=== PATIENT | female | born 1960 | race Caucasian/White ===

== ENCOUNTER 2017-03-17 15:34 | Emergency (ER) | payer MEDICARE, SELFPAY | END 2017-03-17 17:28 | disposition home or self-care (01) | PROVIDERS: Emergency Provider Nurse Practitioner Family; Family Provider Internal Medicine Adolescent Medicine; Visit Provider Nurse Practitioner Family | DX: J10.1 Influenza due to other identified influenza virus with other respiratory manifestations (principal); Z79.82 Long term (current) use of aspirin; I10 Essential (primary) hypertension; K21.9 Gastro-esophageal reflux disease without esophagitis; F41.8 Other specified anxiety disorders; F17.210 Nicotine dependence, cigarettes, uncomplicated | CPT/HCPCS: G0463; 87804; 99201 ==

== ENCOUNTER 2017-04-02 07:43 | Day surgery (SDC) | payer MEDICARE, MEDICAID, SELFPAY ==
[2017-03-24 17:54] VITALS: BMI 35.2
[2017-04-02] VITALS (8 sets, daily range): BP systolic 97–123; BP diastolic 45–64; PULSE 65–75; RESP 18–20; TEMP 36.2–36.8; O2SAT 92–98
--- NOTE | 2017-04-02 09:30 | SUR.OPER ---
Addendum entered by Gerardo Jiang RN 04/06/17 08:48: Original Note: pt remains awake after recieving 11mg versed & 200mcg fentanyl. sandi carrillo consulted per dr boyer request & to assume sedation responsibilities
--- NOTE | 2017-04-02 09:31 | SUR.OPER ---
Cory Kunz FIGHTING VEH[employer]LE [employer]S MAINTAINER enters room to sedate patient after IV Sedation failure to sedate.
--- NOTE | 2017-04-02 09:42 | HMH.PROC ---
[facility] Procedure Note Procedure Note:: Colonoscopy Procedure Report: Colonoscopy with cold snare polypectomy Endoscopist: Anthony Stokes II, MD Referring physician: Sebas Campbell M.D. Date of Procedure: April 02, 2017 Equipment: Olympus 180 variable stiffness pediatric colonoscope Sedation: Fentanyl 200 mg IV/ Versed 11 mg IV (failed to sedate) and then MAC sedation Indication: Mrs. Castro is a 56-year-old female who is here for diagnostic colonoscopy. She does have left upper quadrant abdominal pain for 8-9 months with bloating and some gassiness. She has irregular bowel function with constipation alternating with diarrhea. She does have some occasional spotting of blood secondary to internal hemorrhoids. The patient reports no weight loss or family history of colon cancer. The patient had a colonoscopy in January [address] Benedict Vega M.D. which revealed 4 small polyps (hyperplastic polyps) which were removed. Procedure: Prior to the procedure, a history and physical exam was performed, and patient's medications and allergies were reviewed. The risks, benefits and alternatives of the sedation and procedure were discussed with the patient. All questions were answered and informed consent was obtained. The patient was brought to the procedure room. Patient identification and proposed procedure were verified by the physician and the nurse. The patient was placed in a left lateral decubitus position and the scope was passed under direct vision. Throughout the procedure, the patient's blood pressure, pulse, and oxygen saturations were monitored continuously. The colonoscopy was accomplished without difficulty. The patient tolerated the procedure well. Findings: On digital rectal examination there was normal rectal tone. There were no external hemorrhoids. The colonoscope was introduced through the anal canal to the rectum and advanced to the cecum. The ileocecal valve and appendiceal orifice were identified. The scope was advanced a short distance into the ileum which appeared grossly normal. The scope was then withdrawn into the colon. The cecum, ascending and transverse colon and mucosa were grossly normal. There were scattered diverticuli throughout the descending and sigmoid colon (LEFT colon). There was a single 4-5 mm polyp in the rectum removed via cold snare polypectomy. Upon retroflexion within the rectum there were grade 1 internal hemorrhoids. Impression: 1. Diminutive rectal polyp 2. Left-sided diverticulosis 3. Grade 1 internal hemorrhoids Plan: I will follow up the polyp pathology and recommend repeat colonoscopy again in 5-10 years based upon the polyp histology. I would encourage dietary measures, fiber bowel regimen and probiotic therapy on a long-term daily maintenance basis. 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 We will discuss additional treatment options.
--- NOTE | 2017-04-02 09:46 | P.PCN_ITS ---
[facility] Procedure Note Procedure Note:: Colonoscopy Procedure Report: Colonoscopy with cold snare polypectomy Endoscopist: Anthony Stokes II, MD Referring physician: Sebas Campbell M.D. Date of Procedure: April 02, 2017 Equipment: Olympus 180 variable stiffness pediatric colonoscope Sedation: Fentanyl 200 mg IV/ Versed 11 mg IV (failed to sedate) and then MAC sedation Indication: Mrs. Castro is a 56-year-old female who is here for diagnostic colonoscopy. She does have left upper quadrant abdominal pain for 8-9 months with bloating and some gassiness. She has irregular bowel function with constipation alternating with diarrhea. She does have some occasional spotting of blood secondary to internal hemorrhoids. The patient reports no weight loss or family history of colon cancer. The patient had a colonoscopy in January [address] Benedict Vega M.D. which revealed 4 small polyps (hyperplastic polyps) which were removed. Procedure: Prior to the procedure, a history and physical exam was performed, and patient' s medications and allergies were reviewed. The risks, benefits and alternatives of the sedation and procedure were discussed with the patient. All questions were answered and informed consent was obtained. The patient was brought to the procedure room. Patient identification and proposed procedure were verified by the physician and the nurse. The patient was placed in a left lateral decubitus position and the scope was passed under direct vision. Throughout the procedure, the patient's blood pressure, pulse, and oxygen saturations were monitored continuously. The colonoscopy was accomplished without difficulty. The patient tolerated the procedure well. Findings: On digital rectal examination there was normal rectal tone. There were no external hemorrhoids. The colonoscope was introduced through the anal canal to the rectum and advanced to the cecum. The ileocecal valve and appendiceal orifice were identified. The scope was advanced a short distance into the ileum which appeared grossly normal. The scope was then withdrawn into the colon. The cecum, ascending and transverse colon and mucosa were grossly normal. There were scattered diverticuli throughout the descending and sigmoid colon (LEFT colon). There was a single 4-5 mm polyp in the rectum removed via cold snare polypectomy. Upon retroflexion within the rectum there were grade 1 internal hemorrhoids. Impression: 1. Diminutive rectal polyp 2. Left-sided diverticulosis 3. Grade 1 internal hemorrhoids Plan: I will follow up the polyp pathology and recommend repeat colonoscopy again in 5 -10 years based upon the polyp histology. I would encourage dietary measures, fiber bowel regimen and probiotic therapy on a long-term daily maintenance basis. 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 We will discuss additional treatment options.
--- NOTE | 2017-04-02 11:42 | SUR.PHASEII ---
FU APPT MADE WITH LEENA FOR 12 WEEKS- JUN 20 AT 8:30AM
== END 2017-04-02 11:00 | disposition home or self-care (01) ==
LOC: OUTP 07:46
PROVIDERS: Family Provider Internal Medicine Adolescent Medicine; PCP Internal Medicine Adolescent Medicine; Visit Provider Internal Medicine Gastroenterology
PROC: 0DJD8ZZ Inspection of Lower Intestinal Tract, Via Natural or Artificial Opening Endoscopic (ICD-10-PCS; CPT 45378; principal; 2017-04-02 09:00)
DX: K62.1 Rectal polyp (principal); K64.0 First degree hemorrhoids; Z86.010 Personal history of colon polyps
CPT/HCPCS: 45380; 88305

== ENCOUNTER → 2017-05-06 09:27 | Outpatient (CLI) | payer MEDICARE, MEDICAID, SELFPAY ==
[2017-05-06 11:07] LABS: Basophils # 0.1 K/mm3 (0-0.2); Basophils % 1.3 % (0.1-2.0); Eosinophils # 0.3 K/mm3 (0.0-0.4); Eosinophils % 4.2 % (0.1-12.0); Hematocrit 35.3 % (37.0-47.0); Hemoglobin 11.2 g/dL (12.2-16.2); Lymphocytes # 2.1 K/mm3 (0.7-4.5); Lymphocytes % 35.2 K/mm3 (10-50); Mean Corpuscular HGB Conc 31.8 g/dL (31.8-35.4); Mean Corpuscular Hemoglobin 27.6 pg (27.0-31.2); Mean Corpuscular Volume 86.8 fl (81-99); Mean Platelet Volume 8.6 fl (7.4-10.4); Monocytes # 0.3 K/mm3 (0.1-1.0); Neutrophils # 3.2 K/mm3 (1.8-7.8); Neutrophils % 54.3 % (37.0-80.0); Platelet Count 320 K/mm3 (142-424); Red Blood Count 4.07 M/mm3 (4.20-5.40); Red Cell Distribution Width 13.6 % (11.5-17.5); White Blood Count 5.8 K/mm3 (4.8-10.8)
[2017-05-06 12:10] LABS: Chol/HDL Ratio 2.7 (1-3.5); Cholesterol 159 mg/dL (140-200); HDL Cholesterol 60 mg/dL (29-89); LDL Cholesterol 77 mg/dL (0-130); Thyroid Stimulating Hormone 0.96 uIU/ml (0.358-3.740); Triglycerides 112 mg/dL (30-200); VLDL Cholesterol 22 mg/dL (0-40)
[2017-05-07 12:15] LABS: Vitamin B12 633 pg/mL (232-1245); Vitamin D 25 Hydroxy 27.7 ng/mL (30.0-100.0)
== END ==
PROVIDERS: PCP Internal Medicine Adolescent Medicine; Visit Provider Nurse Practitioner Family
DX: E53.8 Deficiency of other specified B group vitamins (principal); R53.83 Other fatigue; Z00.00 Encounter for general adult medical examination without abnormal findings
CPT/HCPCS: 36415; 80061; 82607; 82652; 84443; 85025

== ENCOUNTER → 2017-06-21 08:30 | Outpatient (POV) | payer MEDICARE, MEDICAID, SELFPAY | PROVIDERS: Family Provider Internal Medicine Adolescent Medicine; PCP Internal Medicine Adolescent Medicine; Visit Provider Nurse Practitioner Acute Care | DX: Z00.00 Encounter for general adult medical examination without abnormal findings (principal) ==

== ENCOUNTER → 2017-08-03 07:44 | Outpatient (CLI) | payer MEDICARE, MEDICAID, SELFPAY ==
--- NOTE | 2017-08-03 07:46 | MR_ITS ---
MR lumbar spine wo con, MR 3-d myelogram/MRCP HISTORY: Left sciatic pain, left buttock pain. Numbness and pain left leg. Left back pain low back pain with LT buttox pain. Numbness in LT leg on lateral side and in 3rd-5th toes in LT foot.. ITS.REASON: LEFT SCIATIC NERVE PAIN ORDERING PHYSICIAN: Soraida Coughlin PATIENT AGE: 56 years TECHNIQUE: Standard multiplanar multiecho sequences are performed without contrast. 3-D MIP and myelographic images are also rendered and reviewed FINDINGS: The spinal cord ends at the L1 level. T11-T12: Minimal left foraminal disc protrusion with mild left foraminal narrowing. T12-L1: Minimal bulging disc. L1-L2: Minimal right paracentral disc protrusion with mild right lateral recess narrowing abutting the right L2 nerve root L2-L3: Unremarkable. L3-L4: Unremarkable. L4-L5: There is mild anterolisthesis of L4 on L5 of 3 mm with minimal bulging disc along with facet and ligamentum flavum hypertrophy with mild to moderate bilateral foraminal narrowing. L5-S1: Prominent facet hypertrophic changes bilaterally with bilateral impingement upon the lateral aspect of the thecal sac. The somewhat more prominent on the right impingement upon the right S1 nerve root. Left lateral recess narrowing also present. No extruded herniated disc. IMPRESSION: 1. Small right paracentral disc protrusion with lateral recess narrowing at L1-L2. 2. Mild left foraminal disc protrusion at T11-T12 with mild left foraminal narrowing 3. There is mild anterolisthesis of L4 on L5 of 3 mm with minimal bulging disc along with facet and ligamentum flavum hypertrophy with mild to moderate bilateral foraminal narrowing. 4. Prominent facet hypertrophic changes bilaterally at L5-S1 with bilateral impingement upon the lateral aspect of the thecal sac. The somewhat more prominent on the right impingement upon the right S1 nerve root. Left lateral recess narrowing also present.
== END ==
PROVIDERS: Family Provider Internal Medicine Adolescent Medicine; PCP Internal Medicine Adolescent Medicine; Visit Provider Nurse Practitioner Family
DX: M54.32 Sciatica, left side (principal)
CPT/HCPCS: 72148; 76376

== ENCOUNTER → 2017-08-23 14:50 | Outpatient (POV) | payer MEDICARE, MEDICAID, SELFPAY ==
[2017-08-23 15:07] VITALS: BP 140/87; PULSE 66; RESP 18; O2SAT 98
--- NOTE | 2017-08-23 16:11 | HMH.PMCON ---
Assessment and Plan (1) Degenerative disc disease Current visit: Yes Status: Chronic Category: Medical (2) Lumbar radiculopathy Current visit: Yes Status: Chronic Category: Medical Code(s): M54.16 - Radiculopathy, lumbar region (3) Facet hypertrophy Current visit: Yes Status: Chronic Category: Medical Code(s): M47.9 - Spondylosis, unspecified (4) Lumbar nerve root impingement Current visit: Yes Status: Chronic Category: Medical Code(s): M54.16 - Radiculopathy, lumbar region - Assessment and plan all Dx Assessment and Plan for all problems:: We will plan to send this patient to Dr. Zamora for neurosurgical consultation. Patient has a recent MRI. We will also schedule the patient for an L5-S1 lumbar epidural steroid injection today believing given her symptomology that this would be beneficial. Patient's tried and failed medications, anti-inflammatories, physical therapy, chiropractic therapy, massage therapy. Patient has not tried injections before. I will follow-up with this patient after her neurosurgical consultation or her injective ever comes first. Patient is not on any anticoagulation therapy. This note was dictated using voice recognition software and may contain errors or omissions HPI - Data of Consult Consult date: 08/23/17 Requesting Physician: Shani Hebert APRN Primary Care Provider: Sebas Campbell MD Family Provider: Sebas Campbell MD - Consult Narrative Reason for consult: Back pain, leg pain History of present illness: Ms. Castro is a 56 year old female who presents today for consultation in regards to her low back and left-sided pain. Patient is also having some right sided pain. Patient has numbness in her left foot and toes. Patient has a recent MRI showing nerve impingement at L5-S1. Patient has not been seen by a neurosurgeon. Patient rates her pain a 7 out of 10 today. Patient states she has tried and failed chiropractic therapy along with physical therapy. Patient also tried massage therapy. Patient is currently on Lortab and Valium and she states this does not help much. Patient does have weakness in her legs at times she also states that they feel heavy. Patient states that lots of walking increases her pain while stretching decreases her pain. CC: Shani Hebert APRN [facility] History I have reviewed the patient's past medical history: Yes Medical History: Reports:: Hyperlipidemia Denies:: Diabetes Mellitus Type 1, Diabetes Mellitus Type 2, Internal Pacemaker, Lung Disease, Seizures Other Medical History: Denies: Blood Transfusion Reaction Other Surgeries: Yes: Cardiac Catheterization, Hysterectomy-Total, Other (gall bladder,neck surgery,cyst removed from head). No: Pacemaker - *Social History Educational Level: Attended High School Smoking Status: Never smoker Alcohol Intake: never Occupational Status: other Housing: house - Psychiatric History Expresses thoughts of harming self/others: None Suicide Plan Description: No Plan *Family Hx:: No significant family history Review of Systems - Review of Systems ROS General: no recent weight change, no fever, no sleep disturbances Respiratory: no cough, no shortness of air, no recurring pulmonary infections Cardiovascular/Peripheral Vascular: No chest pain, No palpitations, no edema, no shortness of breath. Gastrointestinal: no incontinence, normal bowel movements reported Genitourinary: no incontinence Musculoskeletal: Pain, left leg pain Psychiatric: normal mood/ affect Neurological: Weakness in bilateral lower extremities, [denies balance issues] Meds Home Medications Medication Instructions Recorded Confirmed Type Aspirin [Aspirin 81mg chewable 81 mg PO DAILY 03/24/17 08/22/17 History tab] Atorvastatin Calcium [Atorvastatin 10 mg PO DAILY 03/24/17 08/22/17 History 10mg Tab] Azelastine HCl [Azelastine Nasal 0 mcg NS BID 03/24/17 08/22/17 History
--- NOTE | 2017-08-23 16:14 | P.CONS_ITS ---
Assessment and Plan (1) Degenerative disc disease Current visit: Yes Status: Chronic Category: Medical (2) Lumbar radiculopathy Current visit: Yes Status: Chronic Category: Medical Code(s): M54.16 - Radiculopathy, lumbar region (3) Facet hypertrophy Current visit: Yes Status: Chronic Category: Medical Code(s): M47.9 - Spondylosis, unspecified (4) Lumbar nerve root impingement Current visit: Yes Status: Chronic Category: Medical Code(s): M54.16 - Radiculopathy, lumbar region - Assessment and plan all Dx Assessment and Plan for all problems:: We will plan to send this patient to Dr. Zamora for neurosurgical consultation. Patient has a recent MRI. We will also schedule the patient for an L5-S1 lumbar epidural steroid injection today believing given her symptomology that this would be beneficial. Patient's tried and failed medications, anti- inflammatories, physical therapy, chiropractic therapy, massage therapy. Patient has not tried injections before. I will follow-up with this patient after her neurosurgical consultation or her injective ever comes first. Patient is not on any anticoagulation therapy. This note was dictated using voice recognition software and may contain errors or omissions HPI - Data of Consult Consult date: 08/23/17 Requesting Physician: Shani Hebert APRN Primary Care Provider: Sebas Campbell MD Family Provider: Sebas Campbell MD - Consult Narrative Reason for consult: Back pain, leg pain History of present illness: Ms. Castro is a 56 year old female who presents today for consultation in regards to her low back and left-sided pain. Patient is also having some right sided pain. Patient has numbness in her left foot and toes. Patient has a recent MRI showing nerve impingement at L5-S1. Patient has not been seen by a neurosurgeon. Patient rates her pain a 7 out of 10 today. Patient states she has tried and failed chiropractic therapy along with physical therapy. Patient also tried massage therapy. Patient is currently on Lortab and Valium and she states this does not help much. Patient does have weakness in her legs at times she also states that they feel heavy. Patient states that lots of walking increases her pain while stretching decreases her pain. CC: Shani Hebert APRN [facility] History I have reviewed the patient's past medical history: Yes Medical History: Reports:: Hyperlipidemia Denies:: Diabetes Mellitus Type 1, Diabetes Mellitus Type 2, Internal Pacemaker, Lung Disease, Seizures Other Medical History: Denies: Blood Transfusion Reaction Other Surgeries: Yes: Cardiac Catheterization, Hysterectomy-Total, Other (gall bladder,neck surgery,cyst removed from head). No: Pacemaker - *Social History Educational Level: Attended High School Smoking Status: Never smoker Alcohol Intake: never Occupational Status: other Housing: house - Psychiatric History Expresses thoughts of harming self/others: None Suicide Plan Description: No Plan *Family Hx:: No significant family history Review of Systems - Review of Systems ROS General: no recent weight change, no fever, no sleep disturbances Respiratory: no cough, no shortness of air, no recurring pulmonary infections Cardiovascular/Peripheral Vascular: No chest pain, No palpitations, no edema, no shortness of breath. Gastrointestinal: no incontinence, normal bowel movements reported Genitourinary: no incontinence Musculoskeletal: Pain, left leg pain Psychiatric: normal mood/ affect Neurol
== END ==
PROVIDERS: Family Provider Internal Medicine Adolescent Medicine; PCP Internal Medicine Adolescent Medicine; Visit Provider Clinical Nurse Specialist Family Health
DX: M54.16 Radiculopathy, lumbar region (principal); M47.9 Spondylosis, unspecified
CPT/HCPCS: 99202

== ENCOUNTER → 2017-09-28 09:02 | Outpatient (POV) | payer MEDICARE, SELFPAY ==
[2017-09-28 09:13] VITALS: BP 143/85; PULSE 68; RESP 18; O2SAT 98; BMI 39.1
--- NOTE | 2017-09-28 09:38 | HMH.PAINSOAP ---
[facility] Pain Management SOAP Note Subjective:: This patient is a very pleasant 56-year-old white female who presents today for follow-up after lumbar epidural steroid injection. Patient did not receive any relief from this injection. Patient states most of her pain is in her low back. Patient does have more pain when she twists. Patient has positive facet loading of the lumbar spine. Patient does have an MRI showing facet hypertrophy along with other facet changes. Patient is going to see a neurosurgeon this month. Patient and I discussed treatment options. Patient would like to try another round of injections to see if this helps with her pain relief. Patient and I had a long discussion about identifying pain sources. Patient rates her pain a 6 out of 10 today. ROS General: no recent weight change, no fever, no sleep disturbances Respiratory: no cough, no shortness of air, no recurring pulmonary infections Cardiovascular/Peripheral Vascular: No chest pain, No palpitations, no edema, no shortness of breath. Gastrointestinal: no incontinence, normal bowel movements reported Genitourinary: no incontinence Musculoskeletal: Back pain Psychiatric: normal mood/ affect Neurological: [denies weakness in extremities], [denies balance issues] Objective:: Physical Exam General: Alert and oriented x3, no acute distress, pleasant and cooperative, [on room air] Lungs: Resps E/U, Symmetrical chest expansion, Eyes: PERRL Musculoskeletal: Flexion and extension of lumbar spine somewhat guarded secondary to pain, deep tendon reflexes normal, strength in upper and lower extremities [5/5], slightly antalgic gait noted, positive facet loading lumbar spine bilaterally Neurological: speech clear, distribution lineman equal, no gross sensory deficits Assessment:: Facet arthropathy, degenerative disc disease of the lumbar spine Plan:: We will schedule medial branch block/facet joint injections at L3-L4 L4-L5 L5-S1 bilaterally. Patient is not on any anticoagulation patient has tried and failed physical therapy, stretching therapy, massage therapy. Patient's tried and failed anti-inflammatories, medications. Patient is continuing to do home stretching regimen. I will follow-up with this patient after her injections and I will reassess her symptoms at that time. Patient's been instructed to call the office if she has any issues prior to her next appointment. This note was dictated using voice recognition software and may contain errors or omissions
--- NOTE | 2017-09-28 09:41 | P.CONS_ITS ---
[facility] Pain Management SOAP Note Subjective:: This patient is a very pleasant 56-year-old white female who presents today for follow-up after lumbar epidural steroid injection. Patient did not receive any relief from this injection. Patient states most of her pain is in her low back. Patient does have more pain when she twists. Patient has positive facet loading of the lumbar spine. Patient does have an MRI showing facet hypertrophy along with other facet changes. Patient is going to see a neurosurgeon this month. Patient and I discussed treatment options. Patient would like to try another round of injections to see if this helps with her pain relief. Patient and I had a long discussion about identifying pain sources. Patient rates her pain a 6 out of 10 today. ROS General: no recent weight change, no fever, no sleep disturbances Respiratory: no cough, no shortness of air, no recurring pulmonary infections Cardiovascular/Peripheral Vascular: No chest pain, No palpitations, no edema, no shortness of breath. Gastrointestinal: no incontinence, normal bowel movements reported Genitourinary: no incontinence Musculoskeletal: Back pain Psychiatric: normal mood/ affect Neurological: [denies weakness in extremities], [denies balance issues] Objective:: Physical Exam General: Alert and oriented x3, no acute distress, pleasant and cooperative, [ on room air] Lungs: Resps E/U, Symmetrical chest expansion, Eyes: PERRL Musculoskeletal: Flexion and extension of lumbar spine somewhat guarded secondary to pain, deep tendon reflexes normal, strength in upper and lower extremities [5/5], slightly antalgic gait noted, positive facet loading lumbar spine bilaterally Neurological: speech clear, coal hiker equal, no gross sensory deficits Assessment:: Facet arthropathy, degenerative disc disease of the lumbar spine Plan:: We will schedule medial branch block/facet joint injections at L3-L4 L4-L5 L5- S1 bilaterally. Patient is not on any anticoagulation patient has tried and failed physical therapy, stretching therapy, massage therapy. Patient's tried and failed anti-inflammatories, medications. Patient is continuing to do home stretching regimen. I will follow-up with this patient after her injections and I will reassess her symptoms at that time. Patient's been instructed to call the office if she has any issues prior to her next appointment. This note was dictated using voice recognition software and may contain errors or omissions
== END ==
PROVIDERS: Family Provider Internal Medicine Adolescent Medicine; PCP Internal Medicine Adolescent Medicine; Visit Provider Clinical Nurse Specialist Family Health
DX: M51.36 Other intervertebral disc degeneration, lumbar region (principal)
CPT/HCPCS: 99212

== ENCOUNTER → 2017-11-08 09:16 | Outpatient (POV) | payer MEDICARE, SELFPAY ==
[2017-11-08 09:17] VITALS: BP 140/85; PULSE 84; RESP 18; O2SAT 98; BMI 37.5
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
== END ==
PROVIDERS: Family Provider Internal Medicine Adolescent Medicine; PCP Internal Medicine Adolescent Medicine; Visit Provider Clinical Nurse Specialist Family Health
DX: M51.36 Other intervertebral disc degeneration, lumbar region (principal); M47.896 Other spondylosis, lumbar region; M54.06 Panniculitis affecting regions of neck and back, lumbar region
CPT/HCPCS: 99213

== ENCOUNTER → 2017-12-02 07:50 | Outpatient (CLI) | payer MEDICARE, SELFPAY ==
[2017-12-02 08:15] LABS: Basophils % 0.5 % (0.1-2.0); Eosinophils # 0.1 K/mm3 (0.0-0.4); Eosinophils % 2.1 % (0.1-12.0); Hematocrit 36.1 % (37.0-47.0); Hemoglobin 11.5 g/dL (12.2-16.2); Lymphocytes # 1.5 K/mm3 (0.7-4.5); Lymphocytes % 22.4 K/mm3 (10-50); Mean Corpuscular HGB Conc 31.7 g/dL (31.8-35.4); Mean Corpuscular Volume 88.4 fl (81-99); Mean Platelet Volume 7.9 fl (7.4-10.4); Monocytes # 0.3 K/mm3 (0.1-1.0); Monocytes % 4.5 % (1.7-9.3); Neutrophils # 4.7 K/mm3 (1.8-7.8); Neutrophils % 70.5 % (37.0-80.0); Platelet Count 271 K/mm3 (142-424); Red Blood Count 4.09 M/mm3 (4.20-5.40); Red Cell Distribution Width 13.5 % (11.5-17.5); White Blood Count 6.7 K/mm3 (4.8-10.8)
[2017-12-02 10:55] LABS: Alanine Aminotransferase 16 U/L (12-78); Albumin/Globulin Ratio 0.8 (1.1-1.8); Alkaline Phosphatase 98 U/L (46-116); Anion Gap 10.8 mEq/L (5-15); Aspartate Amino Transferase 9 U/L (15-37); Bilirubin,Total 0.2 mg/dL (0.2-1.0); Blood Urea Nitrogen 14 mg/dL (7-18); Calcium 8.9 mg/dL (8.5-10.1); Carbon Dioxide 31 mmol/L (21.0-32.0); Chloride 108 mmol/L (98-107); Chol/HDL Ratio 2.5 (1-3.5); Cholesterol 163 mg/dL (140-200); Creatinine,Serum 0.64 mg/dL (0.55-1.02); Estimated Glomerular Filt Rate 96 ml/min (>60); GFR (African American) 116 ML/MIN (>60); Globulin 3.7 gm/dl (1.3-3.2); Glucose 99 mg/dL (74-106); HDL Cholesterol 66 mg/dL (29-89); LDL Cholesterol 70 mg/dL (0-130); Potassium 4.8 mmoL/L (3.5-5.1); Sodium 145 mmol/L (136-145); Thyroid Stimulating Hormone 1.31 uIU/ml (0.358-3.740); Total Protein,Serum 6.7 gm/dL (6.4-8.2); Triglycerides 133 mg/dL (30-200); VLDL Cholesterol 27 mg/dL (0-40)
[2017-12-06 05:21] LABS: Vitamin B12 574 pg/mL (232-1245); Vitamin D 25 Hydroxy 38.1 ng/mL (30.0-100.0)
== END ==
PROVIDERS: PCP Internal Medicine Adolescent Medicine; Visit Provider Nurse Practitioner Family
DX: I10 Essential (primary) hypertension (principal); E78.2 Mixed hyperlipidemia; E04.9 Nontoxic goiter, unspecified; E53.8 Deficiency of other specified B group vitamins; E55.9 Vitamin D deficiency, unspecified
CPT/HCPCS: 36415; 80053; 80061; 82607; 82652; 84443; 85025

== ENCOUNTER → 2018-01-03 11:26 | Outpatient (POV) | payer MEDICARE, SELFPAY ==
[2018-01-03 11:41] VITALS: BP 131/61; PULSE 81; RESP 18; O2SAT 98; BMI 37.5
--- NOTE | 2018-01-03 12:57 | HMH.PAINSOAP ---
[facility] Pain Management SOAP Note Subjective:: Is a pleasant 57-year-old white female who presents today for follow-up after medial branch block. Patient states that she did not get any relief from this injection. Patient has had multiple injections with minimal relief. Patient and I had a long discussion in regards to how she would like to proceed with her care. Patient and I had a discussion about a neurostimulator. Patient is interested in this. Rates her pain a 6 out of 10 today. Mostly in her low back and down her legs. ROS General: no recent weight change, no fever, no sleep disturbances Respiratory: no cough, no shortness of air, no recurring pulmonary infections Cardiovascular/Peripheral Vascular: No chest pain, No palpitations, no edema, no shortness of breath. Gastrointestinal: no incontinence, normal bowel movements reported Genitourinary: no incontinence Musculoskeletal: Back pain, leg pain Psychiatric: normal mood/ affect Neurological: [denies weakness in extremities], [denies balance issues] Objective:: Physical Exam General: Alert and oriented x3, no acute distress, pleasant and cooperative, [on room air] Lungs: Resps E/U, Symmetrical chest expansion, Eyes: PERRL Musculoskeletal: Flexion and extension of lumbar spine somewhat guarded secondary to pain, deep tendon reflexes normal, strength in upper and lower extremities [5/5], [abnormal gait noted] Neurological: speech clear, design engineering manager equal, no gross sensory deficits Assessment:: 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 This note was dictated using voice recognition software and may contain errors or omissions
== END ==
PROVIDERS: Family Provider Internal Medicine Adolescent Medicine; PCP Internal Medicine Adolescent Medicine; Visit Provider Clinical Nurse Specialist Family Health
DX: M51.16 Intervertebral disc disorders with radiculopathy, lumbar region (principal); M54.06 Panniculitis affecting regions of neck and back, lumbar region
CPT/HCPCS: 99213

== ENCOUNTER → 2018-04-28 13:09 | Outpatient (CLI) | payer MEDICARE, SELFPAY ==
[2018-04-28 12:53] VITALS: BP 147/97; PULSE 60; RESP 16; TEMP 36.7; O2SAT 98; BMI 37.5
--- NOTE | 2018-04-28 14:28 | PC.NURSE ---
1448- vss at this time 147/73 96% 59 heart rate patient is stable at this time and pain has decreased
== END ==
PROVIDERS: Visit Provider Anesthesiology
DX: R51 Headache (principal)
CPT/HCPCS: G0463

== ENCOUNTER → 2018-05-10 10:13 | Outpatient (POV) | payer MEDICARE, SELFPAY ==
[2018-05-10 10:16] VITALS: BP 157/71; PULSE 68; RESP 18; O2SAT 99; BMI 37.5
--- NOTE | 2018-05-10 12:37 | HMH.PAINSOAP ---
[facility] Pain Management SOAP Note Subjective:: Patient is a pleasant 57-year-old white female who presents today for follow-up. Patient had a neurostimulator trial however she had a spinal headache due to this she was unable to focus on any pain relief that she may have received. She rates her pain today a 7 out of 10 mostly in her low back and legs. Patient and I had a long discussion in regards to our next step. Patient and I discussed about intrathecal therapy. ROS General: no recent weight change, no fever, no sleep disturbances Respiratory: no cough, no shortness of air, no recurring pulmonary infections Cardiovascular/Peripheral Vascular: No chest pain, No palpitations, no edema, no shortness of breath. Gastrointestinal: no incontinence, normal bowel movements reported Genitourinary: no incontinence Musculoskeletal: Back pain, leg pain Psychiatric: normal mood/ affect Neurological: [denies weakness in extremities], [denies balance issues] Objective:: Physical Exam General: Alert and oriented x3, no acute distress, pleasant and cooperative, [on room air] Lungs: Resps E/U, Symmetrical chest expansion, Eyes: PERRL Musculoskeletal: Flexion and extension of lumbar spine somewhat guarded secondary to pain, deep tendon reflexes normal, strength in upper and lower extremities [5/5], slightly antalgic gait noted Neurological: speech clear, vp construction equal, no gross sensory deficits Assessment:: Degenerative disc disease lumbar spine with lumbar radiculopathy symptoms Plan:: We will set the patient up for intrathecal pain pump trial. Patient and I had a long discussion in regards to this. She understands that she cannot have any narcotic medication 48 hours prior to the procedure and that after her pump is implanted she can no longer continue on oral medications. I will follow-up with the patient after her interthecal trial and reassess her symptoms at that time. She denies being on any anticoagulation therapy. She is continuing a home stretching program. She has tried and failed medications and anti-inflammatories along with injections and spinal cord stimulator trial. Dr. Alvarado has reviewed this note and agrees with this plan of care. This note was dictated using voice recognition software and may contain errors or omissions
== END ==
PROVIDERS: PCP Nurse Practitioner Family; Visit Provider Clinical Nurse Specialist Family Health
DX: M51.16 Intervertebral disc disorders with radiculopathy, lumbar region (principal)
CPT/HCPCS: 99213

== ENCOUNTER → 2018-05-26 09:41 | Outpatient (CLI) | payer MEDICARE, SELFPAY ==
[2018-05-26 09:58] LABS: Basophils # 0.1 K/mm3 (0-0.2); Basophils % 0.8 % (0.1-2.0); Eosinophils # 0.2 K/mm3 (0.0-0.4); Eosinophils % 2.5 % (0.1-12.0); Hematocrit 38.2 % (37.0-47.0); Hemoglobin 12.4 g/dL (12.2-16.2); Lymphocytes # 1.7 K/mm3 (0.7-4.5); Lymphocytes % 27.8 % (10-50); Mean Corpuscular HGB Conc 32.4 g/dL (31.8-35.4); Mean Corpuscular Hemoglobin 28.3 pg (27.0-31.2); Mean Corpuscular Volume 87.3 fl (81-99); Mean Platelet Volume 8.2 fl (7.4-10.4); Monocytes # 0.2 K/mm3 (0.1-1.0); Monocytes % 3.9 % (1.7-9.3); Platelet Count 270 K/mm3 (142-424); Red Blood Count 4.38 M/mm3 (4.20-5.40); Red Cell Distribution Width 13.6 % (11.5-17.5); White Blood Count 6.1 K/mm3 (4.8-10.8)
[2018-05-26 11:59] LABS: Anion Gap 12.9 mEq/L (5-15); Blood Urea Nitrogen 22 mg/dL (7-18); Carbon Dioxide 29 mmol/L (21.0-32.0); Chloride 103 mmol/L (98-107); Creatinine,Serum 0.64 mg/dL (0.55-1.02); Potassium 3.9 mmoL/L (3.5-5.1); Sodium 141 mmol/L (136-145)
[2018-05-26 12:00] LABS: Alanine Aminotransferase 15 U/L (12-78); Albumin Level 3.2 gm/dL (3.4-5.0); Albumin/Globulin Ratio 0.8 (1.1-1.8); Alkaline Phosphatase 106 U/L (46-116); Aspartate Amino Transferase 10 U/L (15-37); Bilirubin,Total 0.4 mg/dL (0.2-1.0); Chol/HDL Ratio 2.6 (1-3.5); Cholesterol 184 mg/dL (140-200); Estimated Glomerular Filt Rate 96 ml/min (>60); Ferritin 37 ng/mL (8-388); GFR (African American) 116 ML/MIN (>60); Globulin 4.1 gm/dl (1.3-3.2); Glucose 99 mg/dL (74-106); HDL Cholesterol 72 mg/dL (29-89); LDL Cholesterol 87 mg/dL (0-130); Thyroid Stimulating Hormone 1.39 uIU/ml (0.358-3.740); Total Protein,Serum 7.3 gm/dL (6.4-8.2); Triglycerides 125 mg/dL (30-200); VLDL Cholesterol 25 mg/dL (0-40)
[2018-05-27 09:24] LABS: Iron 82 ug/dL (27-159); UIBC 332 ug/dL (131-425)
[2018-05-28 10:15] LABS: Folate 8.3 ng/mL (>3.0); Iron Saturation 20 % (15-55); Vitamin B12 669 pg/mL (232-1245); Vitamin D 25 Hydroxy 35.8 ng/mL (30.0-100.0)
== END ==
PROVIDERS: Visit Provider Nurse Practitioner Family
DX: D64.9 Anemia, unspecified (principal); E78.2 Mixed hyperlipidemia; I10 Essential (primary) hypertension; E55.9 Vitamin D deficiency, unspecified; E53.8 Deficiency of other specified B group vitamins
CPT/HCPCS: 36415; 80053; 80061; 82607; 82652; 82728; 82746; 83540; 83550; 84443; 85025

== ENCOUNTER → 2018-08-04 09:39 | Outpatient (CLI) | payer MEDICARE, SELFPAY ==
[2018-08-04 10:42] LABS: Basophils # 0.1 K/mm3 (0-0.2); Basophils % 0.9 % (0.1-2.0); Eosinophils # 0.1 K/mm3 (0.0-0.4); Hematocrit 36.8 % (37.0-47.0); Hemoglobin 12.3 g/dL (12.2-16.2); Lymphocytes # 1.5 K/mm3 (0.7-4.5); Lymphocytes % 26.3 % (10-50); Mean Corpuscular HGB Conc 33.4 g/dL (31.8-35.4); Mean Corpuscular Hemoglobin 29.1 pg (27.0-31.2); Mean Platelet Volume 8.1 fl (7.4-10.4); Monocytes # 0.3 K/mm3 (0.1-1.0); Monocytes % 4.4 % (1.7-9.3); Neutrophils # 3.7 K/mm3 (1.8-7.8); Neutrophils % 66.4 % (37.0-80.0); Platelet Count 268 K/mm3 (142-424); Red Blood Count 4.23 M/mm3 (4.20-5.40); Red Cell Distribution Width 14.1 % (11.5-17.5); White Blood Count 5.6 K/mm3 (4.8-10.8)
[2018-08-04 10:44] LABS: Alanine Aminotransferase 20 U/L (12-78); Albumin/Globulin Ratio 0.7 (1.1-1.8); Alkaline Phosphatase 90 U/L (46-116); Anion Gap 11.1 mEq/L (5-15); Aspartate Amino Transferase 14 U/L (15-37); Bilirubin,Total 0.3 mg/dL (0.2-1.0); Blood Urea Nitrogen 15 mg/dL (7-18); CKMB Relative Index 1.2 U/L (0-4.0); Calcium 8.7 mg/dL (8.5-10.1); Carbon Dioxide 30 mmol/L (21.0-32.0); Chloride 105 mmol/L (98-107); Creatine Kinase 74 U/L (26-192); Creatine Kinase MB 0.9 ng/ml (0.0-3.6); Creatinine,Serum 0.64 mg/dL (0.55-1.02); Estimated Glomerular Filt Rate 96 ml/min (>60); GFR (African American) 116 ML/MIN (>60); Globulin 4.5 gm/dl (1.3-3.2); Glucose 97 mg/dL (74-106); Magnesium 2.1 mg/dL (1.4-2.2); Potassium 4.1 mmoL/L (3.5-5.1); Sodium 142 mmol/L (136-145); Total Protein,Serum 7.5 gm/dL (6.4-8.2); Troponin I < 0.02 ng/ml (0.00-0.06)
== END ==
PROVIDERS: Visit Provider Nurse Practitioner Family
DX: R07.9 Chest pain, unspecified (principal)
CPT/HCPCS: 36415; 80053; 82550; 82553; 83735; 84484; 85025

== ENCOUNTER → 2018-08-22 10:25 | Outpatient (CLI) | payer MEDICARE, SELFPAY | PROVIDERS: PCP Internal Medicine Adolescent Medicine; Visit Provider Nurse Practitioner Family | DX: R07.9 Chest pain, unspecified (principal) | CPT/HCPCS: 93017 ==

== ENCOUNTER → 2018-10-04 07:00 | Outpatient (CLI) | payer MEDICARE, SELFPAY ==
--- NOTE | 2018-10-04 07:02 | CI_ITS ---
Cerebrovascular Exam Indications: 780.4 Dizziness and giddiness. 433.10 Occlusion/stenosis of carotid artery without cerebral infarction. IMPRESSIONS 1. The bilateral vertebral arteries are patent with normal antegrade flow. 2. Study suggests less than 20% stenosis involving the right internal carotid artery and the left internal carotid artery. No change from the study of 29-Mar-2014. History: Risk factors: Hypertension. Carotid duplex study. Complete study and Doppler flow study including spectral analysis, color and calles scale imaging. Location: Vascular laboratory. Patient status: Outpatient. Tables: Arterial flow: + +--------+--------+ Location V sys V ed + +--------+--------+ Right CCA - proximal 88cm/s 22cm/s + +--------+--------+ Right CCA - distal 90.4cm/s 31.4cm/s + +--------+--------+ Right ECA 82.5cm/s -------- + +--------+--------+ Right ICA - proximal 88.8cm/s 30.6cm/s + +--------+--------+ Right ICA - mid 99cm/s 33.8cm/s + +--------+--------+ Right ICA - distal 119cm/s 53.4cm/s + +--------+--------+ Right vertebral 47.9cm/s -------- + +--------+--------+ Left CCA - proximal 98.2cm/s 25.1cm/s + +--------+--------+ Left CCA - distal 83.3cm/s 30.6cm/s + +--------+--------+ Left ECA 78.6cm/s -------- + +--------+--------+ Left ICA - proximal 78.6cm/s 29.9cm/s + +--------+--------+ Left ICA - mid 127cm/s 46.4cm/s + +--------+--------+ Left ICA - distal 104cm/s 40.9cm/s + +--------+--------+ Left vertebral 45.6cm/s -------- + +--------+--------+ Velocity ratios: + + + + + + Right, V sys Right, V ed Left, V sys Left, V ed + + + + + + Max ICA/dist CCA 1.32 1.7 1.52 1.52 + + + + + + (Report amended ) Electronically signed by: Karlos De Santiago [id number]
--- NOTE | 2018-10-04 07:02 | CA_ITS ---
PROCEDURE: 2-D M-mode and color Doppler study INDICATIONS FOR THE TEST: Chest pain+ COPD Heart Murmur Tobacco Smoking Palpitations Fatigue Syncope Edema+ Hypertension+Diabetes Mellitus Rheumatic Fever SOB+CARR Obesity Hyperlipidemia Family History HD Additional History abn GXT PATIENT INFORMATION HEIGHT: 66 WEIGHT: 262 GENDER: Female B/P: 146/60 2-D/M-MODE INTERPRETATION: 2-D MEASUREMENTS OBSERVED VALUES IN CMS Right Ventricular Dimension (RVDd) 1.5 Interventricular Septum (Thickness)(IVsd) 0.8 Left Ventricular Internal Dimensions(LVIDd) 5.0 Left Ventricular Posterior Wall (Thickness)(LVPWd) 0.8 Aortic Root 2.5 Aortic Cusp Separation 2.0 Left Atrial Dimensions (LAD) 4.2 2D 1. Left atrium is mildly enlarged, left ventricle is normal size, there is mild concentric left ventricular hypertrophy, visually estimated ejection fraction 55% with no regional wall motion abnormality. 2. The right atrium and right ventricle are normal size and contractility. 3. The aortic valve is minimally thickened and fibrosed. 4. The mitral and tricuspid valve leaflets are structurally normal. 5. The pulmonic valve is poorly visualized. 6. No significant pericardial effusion noted. DOPPLER INTERROGATION: Doppler interrogation of the aortic, mitral and tricuspid valve reveals presence of mild mitral and tricuspid regurgitation, tricuspid regurgitation jet velocity is inadequate for calculation of the right ventricular systolic pressure, grade 1 diastolic dysfunction seen with tissue Doppler evidence of raised left atrial pressure. CONCLUSION: 1. Mildly enlarged left atrium, normal left ventricular size, mild concentric left ventricular hypertrophy, visually estimated ejection fraction 55% with no regional wall motion abnormality, grade 1 diastolic dysfunction seen with tissue Doppler evidence of raised left atrial pressure. 2. Mild mitral and tricuspid regurgitation 3. No significant pericardial effusion noted.
--- NOTE | 2018-10-04 07:02 | NM_ITS ---
CARDIOLITE SPECT MYOCARDIAL PERFUSION LEXISCAN, REST AND STRESS: [facility] REVIEW QGS EF AND WALL MOTION EVALUATION: QPS - PERFUSION EVALUATION HISTORY: Chest pain, SOB, Syncope, Abnormal GXT, Family history DOSE: 10.32 mCi technetium 99m mibi intravenously at rest followed by 32.0 mCi technetium 99m mibi following the intravenous ministration of 0.4 mg of Lexiscan. Resting blood pressure is 152/73. Stress blood pressure 135/67. FINDINGS: Ejection fraction is calculated to be 63%. Stress images reveal mildly decreased activity in the anterior wall while rest images reveal moderately decreased activity. Gated images calculated ejection fraction of 63% with normal wall motion IMPRESSION: This test suggests some degree of reverse redistribution. This is not entirely consistent with breast attenuation although breast attenuation is a possibility. Clinical correlation is advised.
--- NOTE | 2018-10-04 07:47 | HMH.ITSHM ---
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 []DIAZEPAM BUSPIRONE ATORVASTATIN MAXZIDE PROPRANOLOL OMEPRAZOLE OMEGA 3 MULTIVITAMIN MONTELUKAST MELOXICAM NORCO FUROSEMIDE FLONASE ESTRADIOL ASA
== END ==
PROVIDERS: PCP Nurse Practitioner Family; Visit Provider Urology
DX: I10 Essential (primary) hypertension (principal); R06.02 Shortness of breath; R07.9 Chest pain, unspecified; R94.39 Abnormal result of other cardiovascular function study; Z82.49 Family history of ischemic heart disease and other diseases of the circulatory system; I65.29 Occlusion and stenosis of unspecified carotid artery; R42 Dizziness and giddiness; R60.9 Edema, unspecified
CPT/HCPCS: 78452; 93017; 93306; 93880; A9502; J2785

== ENCOUNTER → 2018-10-27 12:19 | Outpatient (CLI) | payer MEDICARE, SELFPAY ==
[2018-10-27 13:46] LABS: Alanine Aminotransferase 18 U/L (12-78); Albumin Level 3.1 gm/dL (3.4-5.0); Albumin/Globulin Ratio 0.8 (1.1-1.8); Alkaline Phosphatase 97 U/L (46-116); Anion Gap 10.3 mEq/L (5-15); Aspartate Amino Transferase 13 U/L (15-37); Bilirubin,Total 0.2 mg/dL (0.2-1.0); Blood Urea Nitrogen 12 mg/dL (7-18); Calcium 9.3 mg/dL (8.5-10.1); Carbon Dioxide 30 mmol/L (21.0-32.0); Chloride 105 mmol/L (98-107); Chol/HDL Ratio 2.6 (1-3.5); Cholesterol 181 mg/dL (140-200); Creatinine,Serum 0.65 mg/dL (0.55-1.02); Estimated Glomerular Filt Rate 94 ml/min (>60); GFR (African American) 114 ML/MIN (>60); Glucose 92 mg/dL (74-106); HDL Cholesterol 70 mg/dL (29-89); LDL Cholesterol 89 mg/dL (0-130); Potassium 4.3 mmoL/L (3.5-5.1); Sodium 141 mmol/L (136-145); Total Protein,Serum 7.1 gm/dL (6.4-8.2); Triglycerides 112 mg/dL (30-200); VLDL Cholesterol 22 mg/dL (0-40)
[2018-10-27 13:50] LABS: Basophils % 0.6 % (0.1-2.0); Eosinophils # 0.1 K/mm3 (0.0-0.4); Eosinophils % 1.6 % (0.1-12.0); Hematocrit 37.6 % (37.0-47.0); Hemoglobin 12.2 g/dL (12.2-16.2); Lymphocytes # 1.6 K/mm3 (0.7-4.5); Lymphocytes % 28.1 % (10-50); Mean Corpuscular HGB Conc 32.4 g/dL (31.8-35.4); Mean Corpuscular Hemoglobin 28.6 pg (27.0-31.2); Mean Corpuscular Volume 88.3 fl (81-99); Mean Platelet Volume 8.1 fl (7.4-10.4); Monocytes # 0.2 K/mm3 (0.1-1.0); Monocytes % 3.8 % (1.7-9.3); Neutrophils # 3.8 K/mm3 (1.8-7.8); Neutrophils % 65.9 % (37.0-80.0); Platelet Count 307 K/mm3 (142-424); Red Blood Count 4.26 M/mm3 (4.20-5.40); White Blood Count 5.7 K/mm3 (4.8-10.8)
[2018-10-28 12:35] LABS: Vitamin B12 395 pg/mL (232-1245); Vitamin D 25 Hydroxy 37.7 ng/mL (30.0-100.0)
== END ==
PROVIDERS: Visit Provider Nurse Practitioner Family
DX: I10 Essential (primary) hypertension (principal); E78.2 Mixed hyperlipidemia; E53.8 Deficiency of other specified B group vitamins; E55.9 Vitamin D deficiency, unspecified
CPT/HCPCS: 36415; 80053; 80061; 82607; 82652; 85025

== ENCOUNTER → 2018-12-20 11:03 | Outpatient (CLI) | payer MEDICARE, SELFPAY ==
--- NOTE | 2018-12-20 11:08 | XR_ITS ---
PROCEDURE: XR CHEST 2V CLINICAL HISTORY: SOB,CONGESTION COMPARISON: CXR CHEST(2 VIEWS-NOT PORTABLE) from 06/27/2015 CXR CHEST(2 VIEWS-NOT PORTABLE) from 04/23/2016 CXR1VP XR chest portable from 08/22/2017 FINDINGS: The cardiomediastinal silhouette and pulmonary vascularity are within normal limits. The lungs are clear without infiltrates, suspicious nodules, or pleural effusions. No acute bony abnormalities. IMPRESSION: No acute findings. Dictated by: Pacheco Núñez 12/20/2018 11:57 Electronically signed by Pacheco Núñez in [facility] 12/20/2018 11:57
== END ==
PROVIDERS: PCP Internal Medicine Adolescent Medicine; Visit Provider Internal Medicine Adolescent Medicine
DX: R06.02 Shortness of breath (principal); J98.8 Other specified respiratory disorders
CPT/HCPCS: 71046

== ENCOUNTER → 2019-03-02 10:55 | Outpatient (CLI) | payer MEDICARE, SELFPAY ==
[2019-03-02 12:49] LABS: Anion Gap 12.3 mEq/L (5-15); Blood Urea Nitrogen 17 mg/dL (7-18); Calcium 8.9 mg/dL (8.5-10.1); Carbon Dioxide 29 mmol/L (21.0-32.0); Chloride 105 mmol/L (98-107); Creatinine,Serum 0.68 mg/dL (0.55-1.02); Estimated Glomerular Filt Rate 89 ml/min (>60); GFR (African American) 108 ML/MIN (>60); Glucose 102 mg/dL (74-106); Magnesium 2.2 mg/dL (1.4-2.2); Potassium 4.3 mmoL/L (3.5-5.1); Sodium 142 mmol/L (136-145)
== END ==
PROVIDERS: Visit Provider Nurse Practitioner Family
DX: R60.9 Edema, unspecified (principal); I10 Essential (primary) hypertension
CPT/HCPCS: 36415; 80048; 83735

== ENCOUNTER → 2019-10-05 13:20 | Outpatient (CLI) | payer MEDICARE, SELFPAY ==
[2019-10-05 12:56] LABS: Basophils # 0.1 K/mm3 (0-0.2); Basophils % 0.9 % (0.1-2.0); Eosinophils # 0.2 K/mm3 (0.0-0.4); Eosinophils % 2.8 % (0.1-12.0); Hemoglobin 12.2 g/dL (12.2-16.2); Lymphocytes # 1.9 K/mm3 (0.7-4.5); Lymphocytes % 29.4 % (10-50); Mean Corpuscular Volume 87.7 fl (81-99); Mean Platelet Volume 8.2 fl (7.4-10.4); Monocytes # 0.2 K/mm3 (0.1-1.0); Monocytes % 3.6 % (1.7-9.3); Neutrophils % 63.2 % (37.0-80.0); Platelet Count 255 K/mm3 (142-424); Red Blood Count 4.22 M/mm3 (4.20-5.40); Red Cell Distribution Width 14.1 % (11.5-17.5); White Blood Count 6.3 K/mm3 (4.8-10.8)
[2019-10-05 13:01] LABS: Chloride 98 mmol/L (98-107); Potassium 3.9 mmoL/L (3.5-5.1); Sodium 138 mmol/L (136-145)
[2019-10-05 13:03] LABS: Blood Urea Nitrogen 13 mg/dl (7-17); Estimated Glomerular Filt Rate 103 ml/min (>60); GFR (African American) 125 ML/MIN (>60)
[2019-10-05 13:04] LABS: Alanine Aminotransferase 24 U/L (12-78); Albumin/Globulin Ratio 1.2 (1.1-1.8); Alkaline Phosphatase 99 U/L (38-126); Anion Gap 13.9 mEq/L (5-15); Aspartate Amino Transferase 25 U/L (14-36); Bilirubin,Total 0.3 mg/dl (0.2-1.3); Calcium 8.9 mg/dl (8.4-10.2); Carbon Dioxide 30 mmol/L (22.0-30.0); Chol/HDL Ratio 2.9 (1-3.5); Cholesterol 205 mg/dl (140-200); Globulin 3.3 g/dL (1.3-3.2); Glucose 89 mg/dl (74-100); HDL Cholesterol 71 mg/dl (40-60); Total Protein,Serum 7.3 g/dl (6.3-8.2); Triglycerides 120 mg/dl (30-150); VLDL Cholesterol 24 mg/dL (0-40)
[2019-10-05 13:15] LABS: Direct LDL Cholesterol 116.79 mg/dL (100-129)
[2019-10-05 13:37] LABS: Thyroid Stimulating Hormone 1.03 uIU/mL (0.465-4.68)
[2019-10-05 13:51] LABS: 25-OH Vitamin D, Total 44.4 ng/mL (30-100)
--- NOTE | 2019-10-05 14:21 | CT_ITS ---
PROCEDURE: CT CHEST W CON CLINCAL INDICATION: sob Shortness of breath, chest pressure and tightness COMPARISON: ABDPELW/O CT ABD PELVIS W/O CONTRAST from 06/25/[address] angio chest from 08/22/2017 TECHNIQUE: IV Contrast: 75ml Optiray 350 Axial images obtained with sagittal and coronal reformats. All CT scans at the facility use one or more dose reduction, viz: automated exposure control, ma/kV adjustment per patient size (including targeted exams where dose is matched to indication, i.e. head), or iterative reconstruction technique. FINDINGS: HEART AND MEDIASTINAL STRUCTURES: There is minimal thickening of the pericardium anteriorly measuring up to 6 mm suggesting small effusion. Small node is present in the AP window at 16 x 9 mm not significantly changed. There is a small hiatal hernia with minimal nonspecific thickening of the GE junction. No aortic aneurysm or dissection. No evidence of central pulmonary embolus. LUNGS AND PLEURAL SPACES: Unremarkable. No suspicious nodules effusions or infiltrates BONY STRUCTURES: No acute bony abnormalities apparent. UPPER ABDOMEN: Unremarkable. ADDITIONAL FINDINGS: No other significant abnormalities. IMPRESSION: There is minimal thickening of the pericardium. No other significant anomalies are evident with no acute finding. Dictated by: Karlos De Santiago MD 10/07/2019 07:14 Electronically signed by Karlos De Santiago MD in [facility] 10/07/2019 07:14
[2019-10-06 15:32] LABS: Vitamin B12 500 pg/mL (232-1245)
== END ==
PROVIDERS: Internal Medicine Adolescent Medicine; PCP Nurse Practitioner Family; Visit Provider Nurse Practitioner Family
DX: R06.02 Shortness of breath; R07.9 Chest pain, unspecified; G47.9 Sleep disorder, unspecified; R53.83 Other fatigue; I10 Essential (primary) hypertension; E78.2 Mixed hyperlipidemia; E04.9 Nontoxic goiter, unspecified; E53.8 Deficiency of other specified B group vitamins; E55.9 Vitamin D deficiency, unspecified
CPT/HCPCS: 36415; 71260; 80053; 80061; 82306; 82607; 84443; 85025; 94060; 94726; 94729

== ENCOUNTER → 2019-11-20 12:53 | Outpatient (CLI) | payer MEDICARE, SELFPAY ==
--- NOTE | 2019-11-20 12:59 | XR_ITS ---
PROCEDURE: XR ELBOW RT MIN 3V CLINICAL INDICATION: RT ELBOW PAIN COMPARISON: No exams were available for comparison FINDINGS: No fracture or dislocation. No lytic or blastic change. There is normal mineralization. The joint spaces are well-preserved. No significant degenerative/arthritic changes. No erosive changes evident. Other findings:None. IMPRESSION: No acute findings. Dictated by: Dr. Delmar Baron MD 11/21/2019 08:09 Dr. Delmar Baron MD in [facility] 11/21/2019 08:09
[2019-11-20 14:20] LABS: Basophils # 0.1 K/mm3 (0-0.2); Basophils % 0.7 % (0.1-2.0); Eosinophils # 0.2 K/mm3 (0.0-0.4); Eosinophils % 2.9 % (0.1-12.0); Hematocrit 36.9 % (37.0-47.0); Hemoglobin 12.5 g/dL (12.2-16.2); Lymphocytes # 1.5 K/mm3 (0.7-4.5); Lymphocytes % 19.1 % (10-50); Mean Corpuscular Hemoglobin 29.3 pg (27.0-31.2); Mean Corpuscular Volume 86.3 fl (81-99); Mean Platelet Volume 8.5 fl (7.4-10.4); Monocytes # 0.3 K/mm3 (0.1-1.0); Monocytes % 4.2 % (1.7-9.3); Neutrophils # 5.8 K/mm3 (1.8-7.8); Platelet Count 278 K/mm3 (142-424); Red Blood Count 4.28 M/mm3 (4.20-5.40); Red Cell Distribution Width 13.7 % (11.5-17.5); White Blood Count 7.9 K/mm3 (4.8-10.8)
[2019-11-20 15:29] LABS: Chloride 100 mmol/L (98-107); Potassium 4.2 mmoL/L (3.5-5.1); Sodium 138 mmol/L (136-145)
[2019-11-20 15:31] LABS: Alanine Aminotransferase 15 U/L (12-78); Aspartate Amino Transferase 22 U/L (14-36); Blood Urea Nitrogen 12 mg/dl (7-17); Estimated Glomerular Filt Rate 103 ml/min (>60); GFR (African American) 124 ML/MIN (>60)
[2019-11-20 15:32] LABS: Albumin/Globulin Ratio 1.3 (1.1-1.8); Alkaline Phosphatase 102 U/L (38-126); Anion Gap 11.2 mEq/L (5-15); Bilirubin,Total 0.4 mg/dl (0.2-1.3); Calcium 9.4 mg/dl (8.4-10.2); Carbon Dioxide 31 mmol/L (22.0-30.0); Cholesterol 160 mg/dl (140-200); Globulin 3.2 g/dL (1.3-3.2); Glucose 104 mg/dl (74-100); Total Protein,Serum 7.2 g/dl (6.3-8.2); Triglycerides 136 mg/dl (30-150); VLDL Cholesterol 27 mg/dL (0-40)
[2019-11-20 15:33] LABS: HDL Cholesterol 79 mg/dl (40-60)
[2019-11-20 15:59] LABS: Direct LDL Cholesterol 63.59 mg/dL (100-129)
[2019-11-20 16:05] LABS: Thyroid Stimulating Hormone 0.57 uIU/mL (0.465-4.68)
== END ==
PROVIDERS: Physician Assistant; PCP Nurse Practitioner Family; Visit Provider Nurse Practitioner Family
DX: M25.521 Pain in right elbow (principal); I10 Essential (primary) hypertension; R73.09 Other abnormal glucose; E78.5 Hyperlipidemia, unspecified; R06.02 Shortness of breath
CPT/HCPCS: 36415; 73080; 80053; 80061; 83036; 84443; 85025

== ENCOUNTER → 2019-11-21 15:04 | Outpatient (CLI) | payer MEDICARE, SELFPAY ==
[2019-11-24 09:09] LABS: H. pylori Stool Ag, EIA Negative (Negative)
== END ==
PROVIDERS: Visit Provider Physician Assistant
DX: K58.9 Irritable bowel syndrome, unspecified (principal); I10 Essential (primary) hypertension; E78.5 Hyperlipidemia, unspecified; I82.819 Embolism and thrombosis of superficial veins of unspecified lower extremity; G43.909 Migraine, unspecified, not intractable, without status migrainosus; R06.02 Shortness of breath; K21.9 Gastro-esophageal reflux disease without esophagitis
CPT/HCPCS: 87338

== ENCOUNTER → 2020-01-17 08:26 | Outpatient (CLI) | payer MEDICARE, SELFPAY ==
--- NOTE | 2020-01-17 08:28 | MM_ITS ---
PROCEDURE: MM DIG SCREENING MAMM BI W/CAD Digital Breast Tomosynthesis Included CLINICAL INDICATION: SCREENING There is a history of breast cancer in the patient's maternal aunt and maternal cousin. The patient currently is on estrogen. COMPARISON: MG DMSB DIG MAMM-SCREEN NIKOLAS from 05/10/2015 MG DMDXUR DIG MAMM-DX UNI-RT from 05/31/2015 MG DMSB DIG MAMM-SCREEN NIKOLAS W/CAD from 10/16/2016 TECHNIQUE: Standard CC and MLO images and 3D Tomosynthesis was obtained. R2 CAD reviewed. FINDINGS: Mild to moderate fibroglandular densities are seen in both breasts. There is stable minimal nodularity in the subareolar region left breast. There is no suspicious lesion in either breast and no suspicious microcalcifications. IMPRESSION: Fibrofatty parenchyma with no suspicious lesions seen BI-RAD Category: 2 Benign Finding(s) FOLLOW-UP: 1YR 1 Year Follow-up (A letter has been sent to the patient regarding results of the study.) Dictated by: Dr. Delmar Baron MD 01/18/2020 17:33 Dr. Delmar Baron MD in [facility] 01/18/2020 17:33
== END ==
PROVIDERS: PCP Nurse Practitioner Family; Visit Provider Nurse Practitioner Family
DX: Z12.31 Encounter for screening mammogram for malignant neoplasm of breast (principal)
CPT/HCPCS: 77063; 77067

== ENCOUNTER 2020-07-04 09:17 | Emergency (ER) | payer MEDICARE, SELFPAY ==
[2020-07-04 09:18] VITALS: BP 143/104; PULSE 75; RESP 18; TEMP 36.7; O2SAT 98; BMI 33.4
--- NOTE | 2020-07-04 09:28 | XR_ITS ---
PROCEDURE: XR SHOULDER RT MIN 2V CLINICAL INDICATION: shoulder pain trauma COMPARISON: CR SHOU3L [id number] VIEWS from 03/29/2014 CR SHOU3L [id number] VIEWS from 11/12/2015 FINDINGS: No fracture or dislocation. No lytic or blastic change. There is normal mineralization. There are mild osteoarthritic changes the acromioclavicular joint with mild subacromial stenosis. Other findings:None. IMPRESSION: Degenerative change, no acute finding Dictated by: Karlos De Santiago MD 07/04/2020 10:10 Karlos De Santiago MD in [facility] 07/04/2020 10:10
--- NOTE | 2020-07-04 09:52 | HMH.EDGENADL ---
ED Disposition Clinical Impression: Shoulder injury Disposition: Home, Self-Care Condition on Discharge: Good Prescriptions: methocarbamoL [Methocarbamol 500mg Tablet] 500 mg PO BID 10 Days #20 tab Transmission Status: Pending to [facility] Naproxen Sodium [Naproxen 220mg Tab] 220 mg PO TID 10 Days #20 tab Transmission Status: Pending to [facility] Referrals: Sebas Campbell MD [Primary Care Provider] - - Critical Care Critical Care Time: No Attestation: On 07/04/20, the high probability of a clinically significant, sudden or life threatening deterioration of the following system(s) required my full and direct attention, intervention and personal management. The time I documented below is in addition to time spent performing reported procedures but includes the following listed in this critical care notation. Medical Decision Making - Medical Records Medical records reviewed: Yes: I reviewed the patient's medical records. - Tam Inquiry Pt receiving controlled substance: No Vital Signs: 07/04/20 09:18 Temperature 98.1 F Temperature Source Oral Pulse Rate [Right] 75 Respiratory Rate 18 Blood Pressure [Right Arm] 143/104 H Blood Pressure Mean [Right Arm] 117 02 Sat by Pulse Oximetry 98 Orders (Tests/Meds): ED MEDICATIONS Discontinued Medications Generic Name Dose Route Start Last Admin Trade Name Freq PRN Reason Stop Dose Admin Ketorolac Tromethamine 30 mg 07/04/20 09:28 07/04/20 09:39 Ketorolac 60mg/2ml Vial IM 07/04/20 09:29 30 mg ONCE ONE Administration Medical Decision Narrative: 59-year-old female presents with right shoulder injury. She fell on her right shoulder and there does not appear to be evidence of dislocation on exam or on x-ray she is able to range his shoulder. No fracture visualized on x-ray. Given dose of pain medicine IM Toradol. No clavicular pain and there is no evidence of pneumothorax with good lung exam and air in lungs on x-ray. Reading of the chest x-ray shows no acute fracture plan to treat symptomatically and discharged home General Adult HPI - General Chief complaint: Extremity Injury, Upper Stated complaint: [id number] right shoulder pain Time Seen by Provider: 07/04/20 09:25 Mode of Arrival: Family Vehicle Limitations: No Limitations Description of Symptoms (Recalled from ER Triage Doc. by RN): PATIENT C/O RIGHT SHOUDLER PAIN AFTER TRIPPING OVER A DOG LASTNIGHT. PT HAS DECREASED ROM IN HER RIGHT SHOUDLER. PT DENIES LOC. PT DENIES HITTING HEAD. - History of Present Illness HPI narrative: Pain after tripping over her dog last night. She says that she has had pain that is constant nonradiating in the right shoulder that is dull. She is able to move it however has decreased range of motion. She has no elbow pain or neck pain and had did not hit her head or have head injury she is not on blood thinners. No difficulty breathing chest pain or other injuries Onset (ago): day(s) (1) Radiation: non-radiation Severity: moderate Consistency: constant, intermittent Exacerbating factors: movement - Related Data Home Medications Medication Instructions Recorded Confirmed Hydrocodone/Acetaminophen [[place] 1 each PO NEEDED PRN 03/24/17 04/16/20 10-325 Tablet] Meloxicam [Mobic] 15 mg PO DAILY 03/24/17 04/16/20 Montelukast Sodium [Montelukast 10 mg PO HS 03/24/17 04/16/20 10mg Tab] Multivitamin [Multivitamins] 1 each PO DAILY 03/24/17 04/16/20 Dugway-3 Fatty Acids [Fish Oil] 300 mg PO DAILY 03/24/17 04/16/20 Omeprazole [Omeprazole 40mg 40 mg PO DAILY 03/24/17 04/16/20 Capsule] estradioL [Estrace 1mg tablet] 1 mg PO DAILY 03/24/17 04/16/20 atorvastatin 10 mg tablet 10 mg PO DAILY 09/19/18 04/16/20 potassium chloride 20 mEq 20 meq PO DAILY tab 09/19/19 04/16/20 tablet,extended release(part/cryst) cholecalciferol (vitamin D3) 50 50 mcg PO DAILY 09/20/19 04/16/20 mcg (2,000 unit) capsule furosemide
[2020-07-04 11:34] VITALS: BP 130/90; PULSE 80; RESP 16; TEMP 36.7; O2SAT 98
== END 2020-07-04 11:36 | disposition home or self-care (01) ==
PROVIDERS: Emergency Provider Emergency Medicine; PCP Internal Medicine Adolescent Medicine
DX: S49.91XA Unspecified injury of right shoulder and upper arm, initial encounter (principal); W01.0XXA Fall on same level from slipping, tripping and stumbling without subsequent striking against object, initial encounter; Y92.019 Unspecified place in single-family (private) house as the place of occurrence of the external cause; E78.5 Hyperlipidemia, unspecified; I10 Essential (primary) hypertension; K21.9 Gastro-esophageal reflux disease without esophagitis; F41.9 Anxiety disorder, unspecified; Z88.5 Allergy status to narcotic agent; Z79.899 Other long term (current) drug therapy
CPT/HCPCS: 73030; 99282

== ENCOUNTER 2020-07-17 14:00 | Outpatient (RCR) | payer MEDICARE, SELFPAY ==
--- NOTE | 2020-07-09 15:08 | HMH.OTOPEV ---
OT Inpatient Evaluation Rehab OT Outpatient Eval Start: 07/09/20 14:51 Freq: Status: Active Protocol: [facility]09[facility]20 14:52 [facility] (Rec: 07/09/20 15:08 [facility] [id number] Electronically Signed By Jael Diamond OT 07/09/20 14:52 Outpatient Therapy Subjective History Subjective History Pt is a 59 year old female who reports to therapy for initial evaluation to right shoulder. Pt had a fall when she tripped over her dog and landed on her right shoulder. She immediately went to the ER due to pain and this was ~5 days ago on 07/04/20. She reports she has a constant but variable dull ache in the right shoulder. She also explains she feels she has no strength to actively move the shoulder. Pt does demonstrate with a significant loss in AROM and strength. Pt will continue to be seen twice a week in order to address deficits. Chief Complaint Pain,Weakness Symptom Type Ache,Throb,Sharp,Dull Symptoms Relieved By Nothing Symptoms Aggravated By Physical Activity,Lifting Prior Functional Limitations None Current Functional Limitations Reaching,Lifting,Housework, Dressing,Driving,Sleeping, Recreation Activity Symptom Description Constant but Variable Level of pain today (0-10) 5 Pain scale - at its best (0-10) 4 Pain scale - at its worst (0-10) 10 Shoulder/Elbow Eval Shoulder Objective Measurements Shoulder ROM Right Shoulder Abduction Active Range of 40 degrees Motion (degrees) Shoulder Flexion Active Range of Motion 30 degrees (degrees) Query Text: Shoulder External Rotation Active Range 20 degrees of Motion (degrees) Shoulder Internal Rotation Active Range 20 degrees of Motion (degrees) pain with active ROM shoulder exam right standard pain with passive ROM shoulder exam right standard decreased ROM shoulder exam standard right Shoulder MMT Shoulder Abduction Strength Grade 2+ Poor+ Shoulder Extension Strength Grade 2+ Poor+ Shoulder Flexion Strength Grade 2+ Poor+ Shoulder External Rotation Strength 2+ Poor+ Grade Bingu
== END 2020-07-17 14:05 | disposition home or self-care (01) ==
LOC: OT 14:00
PROVIDERS: PCP Internal Medicine Adolescent Medicine; Visit Provider Nurse Practitioner Family
DX: M25.511 Pain in right shoulder (principal)
CPT/HCPCS: 97014; 97166; G0283

== ENCOUNTER → 2020-07-24 08:23 | Outpatient (CLI) | payer MEDICARE, SELFPAY ==
--- NOTE | 2020-07-24 08:30 | MR_ITS ---
PROCEDURE: MR SHOULDER RT WO CON CLINICAL INDICATION: ACUTE PAIN OF RIGHT SHOULDER Pt fell on shoulder x2wks ago. Limited rang of motion in arm. Weakness in arm. Pain radiates down arm. COMPARISON: MR UEOTJW/OLT MRI-UP EXT OTH THN JNT W/O-LT from 06/06/2014 MR UEAJW/OLT MRI-UP EXT ANY JNT W/O-LT from 01/21/2015 CR XR SHOULDER RT MIN 2V from 07/04/2020 TECHNIQUE: Routine multiplanar multi echo sequences are performed without gadolinium enhancement. FINDINGS: Hypertrophic change with osteoarthritis noted at the acromioclavicular joint with sub acromial stenosis at 5 mm. There is complete tear the infraspinatus tendon with mild retraction of the musculotendinous fibers. The fibers of the supraspinatus tendon are thin distally and may be secondary to partial tear. A complete tear of the supraspinatus however is not felt to be present. There is some thickening of the fibers the subscapularis tendon but no definite tear. The teres minor tendon appears intact. The bicipital tendon is in place. Slap tear noted involving the anterior glenoid labrum from the 12 to 3 o'clock position.. Fluid is present in the subacromial region. Fluid is also present in the subdeltoid region and there is some edema of the supraspinatus muscle distally and posteriorly. Small amount of fluid is present in the subcoracoid region. No obvious fracture or bone bruise. IMPRESSION: 1. Complete tear of the infraspinatus tendon with retraction of the musculotendinous fibers with some edema within the infraspinatus muscle. 2. Thinning of the supraspinatus tendon distally suspicious for partial tear. 3. Slap tear of the anterior glenoid labrum. 4. Osteoarthritic change of the acromioclavicular joint with fluid in the subacromial and subdeltoid region and sub coracoid region. Dictated by: Karlos De Santiago MD 07/25/2020 12:33 Karlos De Santiago MD in [facility] 07/25/2020 12:33
== END ==
PROVIDERS: PCP Internal Medicine Adolescent Medicine; Visit Provider Nurse Practitioner Family
DX: M25.511 Pain in right shoulder (principal)
CPT/HCPCS: 73221

== ENCOUNTER 2020-09-04 18:57 | Emergency (ER) | payer MEDICARE, SELFPAY ==
[2020-09-04 19:00] VITALS: BP 101/48; PULSE 79; RESP 16; TEMP 36.9; O2SAT 94; BMI 32.3
--- NOTE | 2020-09-04 19:22 | CT_ITS ---
PROCEDURE INFORMATION: Exam: CT Abdomen And Pelvis With Contrast Exam date and time: 09/04/2020 7:22 PM Age: 59 years old Clinical indication: Nausea and vomiting and other: Diarrhea; Patient HX: Nausea, vomiting, diarrhea; Additional info: N/v/d TECHNIQUE: Imaging protocol: Computed tomography of the abdomen and pelvis with contrast. Radiation optimization: All CT scans at this facility use at least one of these dose optimization techniques: automated exposure control; mA and/or kV adjustment per patient size (includes targeted exams where dose is matched to clinical indication); or iterative reconstruction. Contrast material: ISOVUE; Contrast volume: 75 ml; Contrast route: IV; COMPARISON: ABDPELW/O CT ABD PELVIS W/O CONTRAST 06/25/2016 3:49 PM FINDINGS: Liver: Normal. No mass. Gallbladder and bile ducts: Normal. No calcified stones. No ductal dilation. Pancreas: Normal. No ductal dilation. Spleen: Normal. No splenomegaly. Adrenal glands: Normal. No mass. Kidneys and ureters: Normal. No hydronephrosis. Stomach and bowel: Unremarkable. No obstruction. No mucosal thickening. Appendix: Appendix not seen but no secondary signs of appendicitis. Intraperitoneal space: Unremarkable. No free air. No significant fluid collection. Vasculature: Unremarkable. No abdominal aortic aneurysm. Lymph nodes: Unremarkable. No enlarged lymph nodes. Urinary bladder: Unremarkable as visualized. Reproductive: Hysterectomy. Bones/joints: Unremarkable. No acute fracture. Soft tissues: Unremarkable. IMPRESSION: No acute findings.
[2020-09-04 19:44] VITALS: BP 106/67; PULSE 75; O2SAT 97
[2020-09-04 19:46] LABS: Basophils # 0.1 K/mm3 (0-0.2); Basophils % 0.7 % (0.1-2.0); Eosinophils # 0.2 K/mm3 (0.0-0.4); Eosinophils % 1.6 % (0.1-12.0); Hematocrit 34.5 % (37.0-47.0); Hemoglobin 11.8 g/dL (12.2-16.2); Lymphocytes # 1.6 K/mm3 (0.7-4.5); Lymphocytes % 16.7 % (10-50); Mean Corpuscular HGB Conc 34.3 g/dL (31.8-35.4); Mean Corpuscular Hemoglobin 28.6 pg (27.0-31.2); Mean Corpuscular Volume 83.3 fl (81-99); Mean Platelet Volume 8.1 fl (7.4-10.4); Monocytes # 0.4 K/mm3 (0.1-1.0); Monocytes % 3.8 % (1.7-9.3); Neutrophils # 7.4 K/mm3 (1.8-7.8); Neutrophils % 77.3 % (37.0-80.0); Platelet Count 372 K/mm3 (142-424); Red Blood Count 4.15 M/mm3 (4.20-5.40); Red Cell Distribution Width 14.2 % (11.5-17.5); White Blood Count 9.6 K/mm3 (4.8-10.8)
[2020-09-04 19:54] LABS: Alanine Aminotransferase 18 U/L (12-78); Albumin Level 4.2 g/dl (3.5-5.0); Albumin/Globulin Ratio 1.2 (1.1-1.8); Alkaline Phosphatase 110 U/L (38-126); Amylase 39 U/L (30-110); Anion Gap 9.5 mEq/L (5-15); Aspartate Amino Transferase 24 U/L (14-36); Bilirubin,Total 0.6 mg/dl (0.2-1.3); Blood Urea Nitrogen 15 mg/dl (7-17); Calcium 9.3 mg/dl (8.4-10.2); Carbon Dioxide 27 mmol/L (22.0-30.0); Chloride 103 mmol/L (98-107); Creatinine Clearance Estimated 80 mL/min (50-200); Estimated Glomerular Filt Rate 51 ml/min (>60); GFR (African American) 62 ML/MIN (>60); Globulin 3.4 g/dL (1.3-3.2); Glucose 114 mg/dl (74-100); Lipase 27 U/L (23-300); Potassium 3.5 mmoL/L (3.5-5.1); Sodium 136 mmol/L (136-145); Total Protein,Serum 7.6 g/dl (6.3-8.2)
[2020-09-04 20:00] LABS: C-Reactive Protein 9.5 mg/L (0-4)
[2020-09-04 20:10] LABS: Procalcitonin 0.052 ng/mL (0.0-2.0); Troponin I < 0.01 ng/ml (0.00-0.034)
--- NOTE | 2020-09-04 20:15 | PC.NURSE ---
pt gone to radiology.
--- NOTE | 2020-09-04 20:18 | HMH.EDNVD ---
ED Disposition Clinical Impression: Gastroenteritis Disposition: Home, Self-Care Condition on Discharge: Good Instructions: DI for Diarrhea and Traveler's Diarrhea -- Adult Additional Instructions: fluids and bring back specimen and call pcp in am Prescriptions: ondansetron HCL [Zofran 4mg Tab] 4 mg PO TID #15 tab Transmission Status: Pending to [facility] Referrals: Sebas Campbell MD [Primary Care Provider] - - Critical Care Critical Care Time: No Attestation: On 09/04/20, the high probability of a clinically significant, sudden or life threatening deterioration of the following system(s) required my full and direct attention, intervention and personal management. The time I documented below is in addition to time spent performing reported procedures but includes the following listed in this critical care notation. Medical Decision Making - Medical Records Medical records reviewed: Yes: I reviewed the patient's medical records. - Tam Inquiry Pt receiving controlled substance: No Vital Signs: 09/04/20 19:00 09/04/20 19:44 Temperature 98.4 F Temperature Source Oral Pulse Rate 75 Pulse Rate [Right] 79 Respiratory Rate 16 Blood Pressure 106/67 L Blood Pressure [Right Arm] 101/48 L Blood Pressure Mean [Right Arm] 65 02 Sat by Pulse Oximetry 94 L 97 - Lab Data Lab results reviewed: Yes: I reviewed the patient's lab results. Lab Results 09/04/20 19:22: WBC 9.6, RBC 4.15 L, Hgb 11.8 L, Hct 34.5 L, MCV 83.3, MCH 28.6, MCHC 34.3, RDW 14.2, Plt Count 372, MPV 8.1, Neut % (Auto) 77.3, Lymph % (Auto) 16.7, [place] % (Auto) 3.8, Eos % (Auto) 1.6, Baso % (Auto) 0.7, Neut # (Auto) 7.4, Lymph # (Auto) 1.6, [place] # (Auto) 0.4, Eos # (Auto) 0.2, Baso # (Auto) 0.1, ESR 91 H 09/04/20 19:22: Sodium 136, Potassium 3.5, Chloride 103, Carbon Dioxide 27, Anion Gap 9.5, BUN 15, Creatinine 1.10 H, Estimated Creat Clear 80, Estimated GFR 51 L, Est GFR ( Amer) 62, Glucose 114 H, Calcium 9.3, Total Bilirubin 0.6, AST 24, ALT 18, Alkaline Phosphatase 110, Troponin I < 0.01, C-Reactive Protein 9.5 H, Total Protein 7.6, Albumin 4.2, Globulin 3.4 H, Albumin/Globulin Ratio 1.2, Amylase 39, Lipase 27, Procalcitonin 0.052 Result diagrams: 09/04/20 19:22 09/04/20 19:22 Orders (Tests/Meds): ED MEDICATIONS Generic Name Dose Route Start Last Admin Trade Name Freq PRN Reason Stop Dose Admin Sodium Chloride 1,000 mls @ 999 mls/hr 09/04/20 19:30 09/04/20 19:30 Sod Chlor 0.9% 1000ml Bag IV 09/04/20 20:30 999 mls/hr .Q1H1M PORTIA Administration Sodium Chloride 8 ml 09/04/20 19:24 Sodium Chloride 0.9% 10ml Vial IV 10/04/20 19:23 NEEDED PRN dilute pepcid Discontinued Medications Generic Name Dose Route Start Last Admin Trade Name Freq PRN Reason Stop Dose Admin Famotidine 20 mg 09/04/20 19:24 09/04/20 19:30 Famotidine 20mg/2ml Vial IV 09/04/20 19:25 20 mg ONCE ONE Administration Iopamidol 75 ml 09/04/20 20:30 09/04/20 20:31 Iopamidol-370 (76%);100ml Bottle IV 09/04/20 20:31 75 ml ONCE ONE Administration Ketorolac Tromethamine 30 mg 09/04/20 19:24 09/04/20 19:30 Ketorolac 30mg/Ml Vial IV 09/04/20 19:25 30 mg ONCE ONE Administration Metoclopramide HCl 10 mg 09/04/20 19:24 09/04/20 19:30 Metoclopramide Hcl 10mg/2ml Vial IVP 09/04/20 19:25 10 mg ONCE ONE Administration Ondansetron HCl 4 mg 09/04/20 19:24 09/04/20 19:30 Ondansetron 4mg/2ml Vial IV 09/04/20 19:25 4 mg ONCE ONE Administration Sodium Chloride 10 ml 09/04/20 20:30 09/04/20 20:31 Sodium Chloride 0.9% 10ml Syr (Rad Only) IV 09/04/20 20:31 10 ml ONCE ONE Administration ORDERS Category Date Time Status Diarrhea 23 Panel, PCR Stat Lab 09/04/20 20:08 Ordered UA [Urinalysis and Microscopic] Stat Lab 09/04/20 19:24 Ordered - CT Data CT Scan: Abdomen, Pelvis Time Received: 22:[address] Reviewed: Yes: I have viewed the radiologist's interpr
[2020-09-04 21:48] LABS: Erythrocyte Sedimentation Rate 91 mm/hr (0-30)
[2020-09-04 22:23] VITALS: BP 112/87; PULSE 75; RESP 16; TEMP 36.9; O2SAT 97
== END 2020-09-04 22:27 | disposition home or self-care (01) ==
PROVIDERS: Emergency Medicine; Emergency Provider Emergency Medicine; PCP Internal Medicine Adolescent Medicine
DX: K52.9 Noninfective gastroenteritis and colitis, unspecified (principal); K21.9 Gastro-esophageal reflux disease without esophagitis; I10 Essential (primary) hypertension; E78.5 Hyperlipidemia, unspecified; Z79.899 Other long term (current) drug therapy
CPT/HCPCS: 74177; 80053; 82150; 83690; 84145; 84484; 85025; 85651; 86140; 96365; 96375; 99283; J2405; Q9967

== ENCOUNTER 2020-11-03 20:21 | Emergency (ER) | payer MEDICARE, SELFPAY ==
--- NOTE | 2020-11-03 | ECG_ITS ---
APPROVED REPORT Exam: Resting ECG HR:57 bpm ECG Measurements Heart Rate 57 AXES CO 158 P 60 QRSd 96 QRS -2 QT 426 T 36 QTc 414 Conclusion Sinus bradycardia Otherwise normal ECG Electronically signed by : Sebas Campbell MD 11/06/2020 11:50:54
[2020-11-03 20:45] VITALS: BP 127/78; PULSE 86; RESP 18; TEMP 37; O2SAT 97; BMI 33.3
[2020-11-03 20:48] LABS: Influenza A, PCR Not Detected (NotDetected); Influenza B, PCR Not Detected (NotDetected)
--- NOTE | 2020-11-03 20:59 | CT_ITS ---
PROCEDURE INFORMATION: Exam: CT Abdomen And Pelvis With Contrast Exam date and time: 11/03/2020 8:59 PM Age: 59 years old Clinical indication: Nausea and vomiting and other: Diarrhea covid 19; Prior surgery; Surgery date: 6+ months; Surgery type: Gb hysterectomy colon; Patient HX: N/v/d covid 19 TECHNIQUE: Imaging protocol: Computed tomography of the abdomen and pelvis with contrast. Radiation optimization: All CT scans at this facility use at least one of these dose optimization techniques: automated exposure control; mA and/or kV adjustment per patient size (includes targeted exams where dose is matched to clinical indication); or iterative reconstruction. Contrast material: ISOVUE; Contrast volume: 75 ml; Contrast route: IV; COMPARISON: CT ABDOMEN PELVIS W CON 09/04/2020 8:22 PM FINDINGS: Liver: Normal. Gallbladder and bile ducts: Gallbladder surgically absent. Pancreas: Normal. Spleen: Splenic calcifications, compatible with prior granulomatous disease. Adrenal glands: Normal. No mass. Kidneys and ureters: Normal. Stomach and bowel: Colonic diverticulosis. Minimal wall thickening of the sigmoid colon, with minimal adjacent fat stranding, likely infectious/inflammatory colitis. Appendix: No evidence of appendicitis. Intraperitoneal space: Unremarkable. No free air. No significant fluid collection. Vasculature: Phleboliths within the pelvis. Lymph nodes: Unremarkable. No enlarged lymph nodes. Urinary bladder: Unremarkable as visualized. Reproductive: Uterus is surgically absent. Bones/joints: Degenerative changes of the hips and sacroiliac joints. Multilevel thoracolumbar spine degenerative disc space narrowing and osteophyte formation. Multilevel thoracolumbar spine degenerative disc space narrowing and osteophyte formation. Grade 1 degenerative anterolisthesis of L4 on L5. Soft tissues: Normal. Other findings: Minimal peripheral patchy ground-glass opacities within the visualized lower lobes. IMPRESSION: 1. Minimal wall thickening of the sigmoid colon, with minimal adjacent fat stranding, likely infectious/inflammatory colitis. 2. Minimal peripheral patchy ground-glass opacities within the visualized lower lobes. Commonly reported imaging features of COVID-19 pneumonia are present. Other processes such as influenza pneumonia and organizing pneumonia, as can be seen with drug toxicity and connective tissue disease, can cause a similar imaging pattern. (Reference: Raymond) REFERENCES: Raymond Ward et al., Radiological Society of [place] Expert Consensus Statement on Reporting Chest CT Findings Related to COVID-19. Endorsed by the Society of Thoracic Radiology, the [place] [employer], and RSNA. Published June 14, 2019.
[2020-11-03 21:03] LABS: Adenovirus F 40/41, stool Not Detected (NotDetected); Astrovirus Not Detected (NotDetected); Campylobacter Not Detected (NotDetected); Cryptosporidium Not Detected (NotDetected); Cyclospora Cayetanesis Not Detected (NotDetected); Entamoeba histolytica Not Detected (NotDetected); Enteroaggregative E coli Not Detected (NotDetected); Enteropathogenic E coli Not Detected (NotDetected); Enterotoxigenic E coli Not Detected (NotDetected); Giardia lamblia Not Detected (NotDetected); Norovirus Not Detected (NotDetected); Plesimonas Shigalloides, PCR Not Detected (NotDetected); Rotavirus A Not Detected (NotDetected); Salmonella, PCR Not Detected (NotDetected); Sapovirus Not Detected (NotDetected); Shiga-like toxin E coli Not Detected (NotDetected); Shigella Enterovasive E coli Not Detected (NotDetected); Vibrio Cholerae Not Detected (NotDetected); Vibrio, PCR Not Detected (NotDetected); Yersinia Entercolitica, PCR Not Detected (NotDetected)
[2020-11-03 21:07] LABS: Basophils % 0.3 % (0.1-2.0); Eosinophils % 0.8 % (0.1-12.0); Hematocrit 36.3 % (37.0-47.0); Hemoglobin 12.1 g/dL (12.2-16.2); Lymphocytes # 1.3 K/mm3 (0.7-4.5); Lymphocytes % 47.9 % (10-50); Mean Corpuscular HGB Conc 33.3 g/dL (31.8-35.4); Mean Corpuscular Hemoglobin 28.2 pg (27.0-31.2); Mean Corpuscular Volume 84.7 fl (81-99); Mean Platelet Volume 8.8 fl (7.4-10.4); Monocytes # 0.2 K/mm3 (0.1-1.0); Monocytes % 6.5 % (1.7-9.3); Neutrophils # 1.2 K/mm3 (1.8-7.8); Neutrophils % 44.5 % (37.0-80.0); Platelet Count 168 K/mm3 (142-424); Red Blood Count 4.29 M/mm3 (4.20-5.40); White Blood Count 2.8 K/mm3 (4.8-10.8)
[2020-11-03 21:11] LABS: Coronavirus 19, PCR Detected (NotDetected)
--- NOTE | 2020-11-03 21:12 | PC.NURSE ---
received covid positive result from emerald palacio
[2020-11-03 21:14] LABS: Alanine Aminotransferase 91 U/L (12-78); Albumin Level 3.9 g/dl (3.5-5.0); Albumin/Globulin Ratio 1.3 (1.1-1.8); Alkaline Phosphatase 147 U/L (38-126); Amylase 50 U/L (30-110); Aspartate Amino Transferase 99 U/L (14-36); Bilirubin,Total 0.6 mg/dl (0.2-1.3); Blood Urea Nitrogen 6 mg/dl (7-17); Calcium 8.2 mg/dl (8.4-10.2); Carbon Dioxide 31 mmol/L (22.0-30.0); Chloride 101 mmol/L (98-107); Creatinine Clearance Estimated 146 mL/min (50-200); Estimated Glomerular Filt Rate 103 ml/min (>60); GFR (African American) 124 ML/MIN (>60); Globulin 3.1 g/dL (1.3-3.2); Glucose 96 mg/dl (74-100); Lipase 39 U/L (23-300); Sodium 138 mmol/L (136-145)
--- NOTE | 2020-11-03 21:23 | HMH.EDNVD ---
ED Disposition Clinical Impression: C. difficile colitis, COVID-19 Disposition: Home, Self-Care Condition on Discharge: Good Instructions: DI for COVID-19 (Suspected or Confirmed ), DI for Clostridioides difficile Infection Additional Instructions: fluids and call pcp in am Prescriptions: metroNIDAZOLE [metroNIDAZOLE 500mg Tablet] 500 mg PO TID #30 tab Transmission Status: Pending to [facility] ondansetron HCL [Zofran 4mg Tab] 4 mg PO TID #21 tab Transmission Status: Pending to [facility] Referrals: Soraida Coughlin APRN [Primary Care Provider] - - Critical Care Critical Care Time: No Attestation: On 11/03/20, the high probability of a clinically significant, sudden or life threatening deterioration of the following system(s) required my full and direct attention, intervention and personal management. The time I documented below is in addition to time spent performing reported procedures but includes the following listed in this critical care notation. Medical Decision Making - Medical Records Medical records reviewed: Yes: I reviewed the patient's medical records. - Tam Inquiry Pt receiving controlled substance: No Vital Signs: 11/03/20 20:45 11/03/20 21:31 11/03/20 22:02 Temperature 98.6 F Temperature Source Oral Pulse Rate 59 L 80 Pulse Rate [Right Brachial] 86 Respiratory Rate 18 Blood Pressure 138/64 129/73 Blood Pressure [Right Arm] 127/78 Blood Pressure Mean 88 Blood Pressure Mean [Right Arm] 94 Blood Pressure Source [Right Arm] Automatic Cuff Blood Pressure Position [Right Arm] Sitting 02 Sat by Pulse Oximetry 97 99 97 Oxygen Delivery Method Room Air - Lab Data Lab results reviewed: Yes: I reviewed the patient's lab results. Lab Results 11/03/20 20:40: SARS-CoV-2 (PCR) Detected A, Influenza A Untype (PCR) Not detected, Influenza Type B (PCR) Not detected 11/03/20 20:50: WBC 2.8 L, RBC 4.29, Hgb 12.1 L, Hct 36.3 L, MCV 84.7, MCH 28.2, MCHC 33.3, RDW 14.0, Plt Count 168, MPV 8.8, Neut % (Auto) 44.5, Lymph % (Auto) 47.9, [place] % (Auto) 6.5, Eos % (Auto) 0.8, Baso % (Auto) 0.3, Neut # (Auto) 1.2 L, Lymph # (Auto) 1.3, [place] # (Auto) 0.2, Eos # (Auto) 0.0, Baso # (Auto) 0.0 11/03/20 20:50: Sodium 138, Potassium 3.0 L, Chloride 101, Carbon Dioxide 31 H, Anion Gap 9.0, BUN 6 L, Creatinine 0.60, Estimated Creat Clear 146, Estimated GFR 103, Est GFR ( Amer) 124, Glucose 96, Calcium 8.2 L, Total Bilirubin 0.6, AST 99 H, ALT 91 H, Alkaline Phosphatase 147 H, Troponin I < 0.01, Total Protein 7.0, Albumin 3.9, Globulin 3.1, Albumin/Globulin Ratio 1.3, Amylase 50, Lipase 39 11/03/20 21:00: Stl Aeromonas (PCR) Not detected, Stl C. cayetanensis PCR Not detected, Stool Rotavirus (PCR) Not detected, Stl Adenov F 40/41 PCR Not detected, Stool Astrovirus (PCR) Not detected, Stool Campylobacter PCR Not detected, Stl C.difficile Tox PCR Detected A, Stool Cryptosporidium PCR Not detected, Stl E.coli Shiga Tox PCR Not detected, Stool E coli O157 PCR Not detected, Stl Enterotoxigenic E PCR Not detected, Stool EPEC (PCR) Not detected, Stool EAEC (PCR) Not detected, Stl E. histolytica PCR Not detected, Stool Giardia Lamblia PCR Not detected, Stool Salmonella PCR Not detected, Stool Sapovirus (PCR) Not detected, Stl P. shigelloides PCR Not detected, Stl Shigella/EIEC PCR Not detected, St Y.enterocolitica PCR Not detected, Stool Vibrio (PCR) Not detected, Stl Vibrio cholerae PCR Not detected, Stl Norovirus GI/GII PCR Not detected Result diagrams: 11/03/20 20:50 11/03/20 20:50 Orders (Tests/Meds): ED MEDICATIONS Generic Name Dose Route Start Last Admin Trade Name Freq PRN Reason Stop Dose Admin Sodium Chloride 1,000 mls @ 999 mls/hr 11/03/20 21:15 11/03/20 21:07 Sod Chlor 0.9% 1000ml Bag IV 11/03/20 22:15 999 mls/hr .Q1H1M PORTIA Administration Sodium Chloride 1,000 mls @ 999 mls/hr 11/03/20 23:30 11/03/20 23:21 Sod Chlor 0.9% 1000ml Bag IV 11/04/20 00:
[2020-11-03 21:31] VITALS: BP 138/64; PULSE 59; O2SAT 99
[2020-11-03 21:31] LABS: Troponin I < 0.01 ng/ml (0.00-0.034)
[2020-11-03 22:02] VITALS: BP 129/73; PULSE 80; O2SAT 97
[2020-11-03 22:26] LABS: Clostridium Difficile A/B, PCR Detected (NotDetected)
--- NOTE | 2020-11-03 23:23 | XR_ITS ---
PROCEDURE INFORMATION: Exam: XR Chest Exam date and time: 11/03/2020 11:23 PM Age: 59 years old Clinical indication: Abnormal findings; Other: Covid 19; Additional info: Covid SOB n/v/d TECHNIQUE: Imaging protocol: XR of the chest. Views: 2 views. COMPARISON: CT CHEST W CON 10/05/2019 2:45 PM FINDINGS: Lungs: Minimal bibasilar ground-glass opacities, likely areas of atelectasis and/or pneumonitis. Pleural spaces: Unremarkable. No pleural effusion. No pneumothorax. Heart/Mediastinum: Normal. Bones/joints: Surgical changes of prior C6-C7 anterior fusion. Organs: Cholecystectomy clips within the right upper abdomen. IMPRESSION: Minimal bibasilar ground-glass opacities, likely areas of atelectasis and/or pneumonitis. Atypical viral pneumonia, such as COVID-19, could have this appearance.
[2020-11-03 23:58] VITALS: BP 122/89; PULSE 85; RESP 18; TEMP 36.6; O2SAT 98
[2020-11-04 00:12] LABS: Troponin I 0.01 ng/ml (0.00-0.034)
== END 2020-11-04 00:19 | disposition home or self-care (01) ==
PROVIDERS: Emergency Provider Emergency Medicine; PCP Nurse Practitioner Family
DX: U07.1 COVID-19 (principal); A04.72 Enterocolitis due to Clostridium difficile, not specified as recurrent; K21.9 Gastro-esophageal reflux disease without esophagitis; E78.5 Hyperlipidemia, unspecified; I10 Essential (primary) hypertension; F41.9 Anxiety disorder, unspecified; Z87.891 Personal history of nicotine dependence; Z79.899 Other long term (current) drug therapy
CPT/HCPCS: 36415; 71046; 74177; 80053; 82150; 83690; 84484; 85025; 87506; 93005; 96365; 96366; 96367; 96375; 99283; J2405; Q9967; U0003

== ENCOUNTER 2020-11-04 11:00 | Outpatient (RCR) | payer MEDICARE, SELFPAY | END 2020-11-04 11:05 | disposition home or self-care (01) | LOC: OT 11:00 | PROVIDERS: PCP Internal Medicine Adolescent Medicine; Visit Provider Orthopaedic Surgery | DX: M25.511 Pain in right shoulder (principal) | CPT/HCPCS: 97165; 97530 ==

== ENCOUNTER → 2020-12-26 16:37 | Outpatient (CLI) | payer MEDICARE, SELFPAY ==
[2020-12-26 17:13] LABS: Basophils # 0.1 K/mm3 (0-0.2); Basophils % 1.5 % (0.1-2.0); Eosinophils # 0.1 K/mm3 (0.0-0.4); Hematocrit 42.3 % (37.0-47.0); Hemoglobin 13.4 g/dL (12.2-16.2); Lymphocytes # 1.5 K/mm3 (0.7-4.5); Lymphocytes % 31.9 % (10-50); Mean Corpuscular HGB Conc 31.6 g/dL (31.8-35.4); Mean Corpuscular Hemoglobin 29.3 pg (27.0-31.2); Mean Corpuscular Volume 92.7 fl (81-99); Mean Platelet Volume 9.6 fl (7.4-10.4); Monocytes # 0.3 K/mm3 (0.1-1.0); Neutrophils # 2.7 K/mm3 (1.8-7.8); Neutrophils % 57.6 % (37.0-80.0); Platelet Count 261 K/mm3 (142-424); Red Blood Count 4.56 M/mm3 (4.20-5.40); Red Cell Distribution Width 15.3 % (11.5-17.5); White Blood Count 4.7 K/mm3 (4.8-10.8)
[2020-12-26 18:03] LABS: Chloride 102 mmol/L (98-107); Sodium 139 mmol/L (136-145)
[2020-12-26 18:06] LABS: Alanine Aminotransferase 630 U/L (12-78); Alkaline Phosphatase 186 U/L (38-126); Amylase 51 U/L (30-110); Aspartate Amino Transferase 422 U/L (14-36); Bilirubin,Total 0.6 mg/dl (0.2-1.3); Blood Urea Nitrogen 13 mg/dl (7-17); Calcium 9.5 mg/dl (8.4-10.2); Carbon Dioxide 29 mmol/L (22.0-30.0); Estimated Glomerular Filt Rate 86 ml/min (>60); GFR (African American) 104 ML/MIN (>60); Glucose 108 mg/dl (74-100); Lipase 76 U/L (23-300)
[2020-12-26 18:07] LABS: Albumin Level 3.9 g/dl (3.5-5.0); Albumin/Globulin Ratio 1.3 (1.1-1.8); Globulin 2.9 g/dL (1.3-3.2); Total Protein,Serum 6.8 g/dl (6.3-8.2)
== END ==
PROVIDERS: Visit Provider Internal Medicine Adolescent Medicine
DX: R10.9 Unspecified abdominal pain (principal); R35.0 Frequency of micturition
CPT/HCPCS: 36415; 80053; 82150; 83690; 85025; 87086

== ENCOUNTER → 2020-12-28 10:35 | Outpatient (CLI) | payer MEDICARE, SELFPAY ==
[2020-12-28 10:42] LABS: MANUAL DIFFERENTIAL MANUAL DIFFERENTIAL (MANUAL DIFF)
[2020-12-28 11:01] LABS: Basophils # 0.1 K/mm3 (0-0.2); Basophils % 1.4 % (0.1-2.0); Eosinophils # 0.2 K/mm3 (0.0-0.4); Eosinophils % 4.2 % (0.1-12.0); Hematocrit 41.9 % (37.0-47.0); Hemoglobin 13.2 g/dL (12.2-16.2); Lymphocytes # 1.3 K/mm3 (0.7-4.5); Mean Corpuscular HGB Conc 31.5 g/dL (31.8-35.4); Mean Corpuscular Volume 92.1 fl (81-99); Monocytes # 0.4 K/mm3 (0.1-1.0); Monocytes % 7.6 % (1.7-9.3); Neutrophils # 2.7 K/mm3 (1.8-7.8); Neutrophils % 57.8 % (37.0-80.0); Platelet Count 251 K/mm3 (142-424); Red Blood Count 4.55 M/mm3 (4.20-5.40); Red Cell Distribution Width 14.7 % (11.5-17.5); White Blood Count 4.6 K/mm3 (4.8-10.8)
[2020-12-28 11:22] LABS: INR 1.01 (0.9-1.1); Prothrombin Time 11.4 seconds (10.1-12.5)
[2020-12-28 11:29] LABS: Chloride 103 mmol/L (98-107); Potassium 4.2 mmoL/L (3.5-5.1); Sodium 138 mmol/L (136-145)
[2020-12-28 11:32] LABS: Alanine Aminotransferase 577 U/L (12-78); Albumin Level 3.5 g/dl (3.5-5.0); Albumin/Globulin Ratio 1.2 (1.1-1.8); Alkaline Phosphatase 187 U/L (38-126); Anion Gap 10.2 mEq/L (5-15); Aspartate Amino Transferase 328 U/L (14-36); Bilirubin,Total 0.5 mg/dl (0.2-1.3); Blood Urea Nitrogen 12 mg/dl (7-17); Carbon Dioxide 29 mmol/L (22.0-30.0); Chol/HDL Ratio 2.7 (1-3.5); Cholesterol 171 mg/dl (140-200); Estimated Glomerular Filt Rate 102 ml/min (>60); GFR (African American) 124 ML/MIN (>60); Globulin 2.9 g/dL (1.3-3.2); Glucose 95 mg/dl (74-100); HDL Cholesterol 63 mg/dl (40-60); Total Protein,Serum 6.4 g/dl (6.3-8.2); Triglycerides 135 mg/dl (30-150); VLDL Cholesterol 27 mg/dL (0-40)
[2020-12-28 11:44] LABS: Direct LDL Cholesterol 67.28 mg/dL (100-129)
[2020-12-28 13:16] LABS: Eosinophils % 3 % (0-3); Lymphocytes % 25 % (10-50); Monocytes % 9 % (2-9); Neutrophils % 63 % (42-76); Nucleated Red Blood Cells 1; Total Cells Counted 100
[2020-12-28 13:17] LABS: Platelet Estimate Normal
[2020-12-29 09:12] LABS: CEA 3.2 ng/mL (0.0-4.7)
[2020-12-29 10:08] LABS: Ceruloplasmin 33.1 mg/dL (19.0-39.0)
[2020-12-29 11:08] LABS: Hep A Ab, IgM Negative (Negative); Hepatitis B Core Antibody IgM Positive (Negative); Hepatitis B Surface Antigen Positive (Negative); Hepatitis C Antibody <0.1 s/co ratio (0.0-0.9)
== END ==
PROVIDERS: Visit Provider Internal Medicine Adolescent Medicine
DX: R79.89 Other specified abnormal findings of blood chemistry (principal); R94.5 Abnormal results of liver function studies
CPT/HCPCS: 36415; 80053; 80061; 80074; 82378; 82390; 85007; 85014; 85018; 85048; 85049; 85610

== ENCOUNTER → 2021-01-01 10:52 | Outpatient (CLI) | payer MEDICARE, SELFPAY | PROVIDERS: Visit Provider Internal Medicine Adolescent Medicine | DX: K75.9 Inflammatory liver disease, unspecified (principal) ==

== ENCOUNTER → 2021-01-22 17:23 | Outpatient (CLI) | payer MEDICARE, SELFPAY ==
[2021-01-22 17:53] LABS: Basophils # 0.1 K/mm3 (0-0.2); Basophils % 1.2 % (0.1-2.0); Eosinophils # 0.1 K/mm3 (0.0-0.4); Eosinophils % 2.7 % (0.1-12.0); Hemoglobin 13.3 g/dL (12.2-16.2); Lymphocytes # 2.1 K/mm3 (0.7-4.5); Lymphocytes % 43.3 % (10-50); Mean Corpuscular Hemoglobin 29.1 pg (27.0-31.2); Mean Corpuscular Volume 93.7 fl (81-99); Mean Platelet Volume 10.1 fl (7.4-10.4); Monocytes # 0.3 K/mm3 (0.1-1.0); Monocytes % 5.8 % (1.7-9.3); Neutrophils # 2.2 K/mm3 (1.8-7.8); Platelet Count 189 K/mm3 (142-424); Red Blood Count 4.59 M/mm3 (4.20-5.40); Red Cell Distribution Width 16.2 % (11.5-17.5); White Blood Count 4.7 K/mm3 (4.8-10.8)
[2021-01-22 18:26] LABS: Chloride 102 mmol/L (98-107); Potassium 3.8 mmoL/L (3.5-5.1); Sodium 138 mmol/L (136-145)
[2021-01-22 18:29] LABS: Albumin Level 3.3 g/dl (3.5-5.0); Albumin/Globulin Ratio 0.9 (1.1-1.8); Alkaline Phosphatase 205 U/L (38-126); Anion Gap 10.8 mEq/L (5-15); Bilirubin,Total 6.1 mg/dl (0.2-1.3); Blood Urea Nitrogen 5 mg/dl (7-17); Carbon Dioxide 29 mmol/L (22.0-30.0); Estimated Glomerular Filt Rate 126 ml/min (>60); GFR (African American) 153 ML/MIN (>60); Globulin 3.6 g/dL (1.3-3.2); Total Protein,Serum 6.9 g/dl (6.3-8.2)
[2021-01-22 18:30] LABS: Calcium 8.9 mg/dl (8.4-10.2); Glucose 100 mg/dl (74-100)
[2021-01-22 18:40] LABS: Alanine Aminotransferase 1003 U/L (12-78); Aspartate Amino Transferase 848 U/L (14-36)
== END ==
PROVIDERS: Visit Provider Nurse Practitioner Family
DX: R55 Syncope and collapse (principal)
CPT/HCPCS: 36415; 80053; 85025

== ENCOUNTER → 2021-04-24 13:08 | Outpatient (CLI) | payer MEDICARE, SELFPAY ==
[2021-04-24 15:25] LABS: Benzodiazepines Screen,Urine Negative ng/ml (<200)
[2021-04-24 15:26] LABS: Amphetamine/Metha Screen,Urine Negative ng/ml (<1000)
[2021-04-24 15:27] LABS: Barbiturates Screen,Urine Negative ng/ml (<200); Cannabinoid Screen,Urine Negative ng/ml (<50)
[2021-04-24 15:28] LABS: Cocaine Screen,Urine Negative ng/ml (<300)
[2021-04-24 15:29] LABS: Methadone Screen,Urine Negative ng/ml (<300); Opiate Screen,Urine Positive ng/ml (<300)
[2021-04-24 15:30] LABS: Phencyclidine Screen,Urine Negative ng/ml (<25)
== END ==
PROVIDERS: PCP Internal Medicine Adolescent Medicine; Visit Provider Nurse Practitioner Family
DX: M53.9 Dorsopathy, unspecified (principal); G89.29 Other chronic pain; Z79.891 Long term (current) use of opiate analgesic
CPT/HCPCS: 80305

== ENCOUNTER → 2021-05-26 16:00 | Outpatient (CLI) | payer MEDICARE, SELFPAY ==
--- NOTE | 2021-05-26 16:11 | XR_ITS ---
PROCEDURE INFORMATION: Exam: XR Left Shoulder Exam date and time: 05/26/2021 4:11 PM Age: 60 years old Clinical indication: Pain; Shoulder; Left; Prior surgery; Surgery date: 6+ months; Additional info: Left anterior shoulder pain TECHNIQUE: Imaging protocol: XR Left shoulder. Views: 2 or more views. COMPARISON: No relevant prior studies available. FINDINGS: Bones/joints: No acute fracture. Query changes of prior distal clavicular resection. Mild glenohumeral joint degenerative changes. Soft tissues: Normal. IMPRESSION: No acute fracture.
== END ==
PROVIDERS: PCP Internal Medicine Adolescent Medicine; Visit Provider Internal Medicine Adolescent Medicine
DX: M25.512 Pain in left shoulder (principal)
CPT/HCPCS: 73030

== ENCOUNTER → 2021-06-23 15:46 | Outpatient (CLI) | payer MEDICARE, SELFPAY ==
--- NOTE | 2021-06-23 15:55 | XR_ITS ---
FINAL REPORT CLINICAL HISTORY: RIGHT KNEE PAIN FINDINGS: Three views of the right knee reveal no evidence of fracture or dislocation. The bony alignment is normal. There are mild to moderate degenerative changes. There is no evidence of joint effusion. Soft tissue calcifications are seen anteriorly. IMPRESSION: No acute abnormality identified. Reviewed, Interpreted and Dictated by Ashok Diez III, MD Transcribed by Iraida Oliver Authenticated by Ashok Diez III, MD on 06/23/2021 05:03:10 PM [facility]
== END ==
PROVIDERS: PCP Internal Medicine Adolescent Medicine; Visit Provider Internal Medicine Adolescent Medicine
DX: M25.561 Pain in right knee (principal)
CPT/HCPCS: 73562

== ENCOUNTER 2022-01-17 09:02 | Emergency (ER) | payer MEDICARE, SELFPAY ==
[2022-01-17 09:30] VITALS: BP 166/79; PULSE 83; RESP 20; TEMP 37.1; O2SAT 96; BMI 32.3
--- NOTE | 2022-01-17 09:34 | EXP.UTC ---
Discharge Plan Disposition Patient Disposition: Home, Self-Care Condition: Good Prescriptions Prescriptions: New benzonatate 100 mg capsule 100 mg PO TID PRN (Reason: cough) Qty: 20 0RF azithromycin [Zithromax Z-Ramiro] 250 mg tablet See Rx Instructions .ROUTE .COMPLEX 5 Days Qty: 6 0RF Rx Instructions: For 250 mg dose pack: take 500 mg today (day 1), then 250 mg for 4 days (days 2-5) No Action atorvastatin 10 mg tablet 10 mg PO DAILY potassium chloride 20 mEq tablet,ER particles/crystals 20 meq PO DAILY furosemide [Lasix] 40 mg tablet 40 mg PO DAILY meloxicam 15 MG tablet 15 mg PO DAILY omeprazole 40 MG capsule,delayed release(DR/EC) 40 mg PO DAILY estradiol 1 MG tablet 1 mg PO DAILY montelukast 10 MG tablet 10 mg PO HS multivitamin 1 EACH capsule 1 each PO DAILY losartan 100 MG tablet 100 mg PO DAILY fluticasone propionate 120 SPR/BOT bottle 2 spr NS DAILY Rx Instructions: each nostril oxycodone 5 MG tablet 5 mg PO Q6 ondansetron HCl 4 MG tablet 4 mg PO TID Qty: 15 0RF ondansetron HCl 4 MG tablet 4 mg PO TID Qty: 21 0RF metronidazole 500 MG tablet 500 mg PO TID Qty: 30 0RF Referrals Follow up/Referrals: Sebas Campbell MD [Primary Care Provider] - See instructions Activity Restrictions/Add. Instructions Additional Instructions/Restrictions: *Monitor Temp, Over the counter Motrin or Tylenol as directed/as needed Tylenol every 4 hours and Motrin every 6 hours (as long as your family doctor has told you that you can take it) for fever or pain. and straight to ER if unable to lower temp less than 101.0 after medication given *Warm salt water gargles may help to soothe the throat *Throat Lozenges? *Warm fluids like tea with honey may help to soothe the throat? *Sleep elevated *Humidifier/Vaporizer *Flonase 2 sprays in each nostril daily but be aware that it may take 2-3 days before you notice improvement *Bromfed may cause drowsiness. Know how it effects you (your child) before driving, caring for small child, or sending your child to school. Not other antihistamines/allergy medications while taking bromfed Your throat swab was sent for culture. Those results are typically sent to your primary care. Be sure to follow up in 2-3 days with your family doctor/primary care physician if no improvement so they can review those result and treat if necessary. If you don?t have a primary care doctor, I recommend you get one but in the mean time, you will have to return to a walk in clinic Follow up IMMEDIATELY for new or worsening symptoms or no Noticeable improvement over the next 48-72 hours. 911 for difficulty breathing or swallowing You were tested for today for Upper Respiratory Panel with COVID19 your test result should be back in the next 24-48 hours, you may check your results on the [facility] Clinical Impressions Clinical Impression: URI (upper respiratory infection) Qualifiers: URI type: unspecified URI Qualified Code(s): J06.9 - Acute upper respiratory infection, unspecified Instructions Patient Instructions: Sore Throat Discharge ED Provider: Lali Hall [facility] [place] HPI General Stated complaint: Congestion, Drainage, Sore throat Time Seen by Provider: 01/17/22 09:34 History of Present Illness Provider Complaint: Patient states that she has been having congestion, runny nose, cough and sore throat States that she hasnt felt well in several days and today she was feeling worse so she came in Related Data Home Medications Medication Instructions Recorded Confirmed estradiol 1 mg tablet 1 mg PO DAILY HORMONE REPLACEMENT 03/24/17 11/03/20 meloxicam 15 mg tablet 15 mg PO DAILY Arthritis 03/24/17 11/03/20 montelukast 10 mg tablet 10 mg PO HS Allergy symptoms 03/24/17 11/03/20 multivitamin 1 each PO DAILY Supplement 03/24/17 11/03/20 omeprazole 40 mg capsule,delay
[2022-01-17 09:54] LABS: Adenovirus,PCR Not Detected (NotDetected); Bordetella Pertussis Not Detected (NotDetected); Chlamydophila Pneumoniae, PCR Not Detected (NotDetected); Coronavirus 19, PCR Not Detected (NotDetected); Coronavirus 229E Not Detected (NotDetected); Coronavirus NL63 Not Detected (NotDetected); Coronavirus OC43 Not Detected (NotDetected); Coronovirus HKU1,PCR Not Detected (NotDetected); Human Metapneumovirus Not Detected (NotDetected); Influenza A, PCR Not Detected (NotDetected); Influenza AH1, 2009 Not Detected (NotDetected); Influenza AH1, PCR Not Detected (NotDetected); Influenza AH3,PCR Not Detected (NotDetected); Influenza B, PCR Not Detected (NotDetected); Mycoplasma Pneumoniae, PCR Not Detected (NotDetected); Parainfluenza 1, PCR Not Detected (NotDetected); Parainfluenza 2, PCR Not Detected (NotDetected); Parainfluenza 3, PCR Not Detected (NotDetected); Parainfluenza 4, PCR Not Detected (NotDetected); Respiratory Syncytial Virus Not Detected (NotDetected)
[2022-01-17 10:09] LABS: UTC Strep Screen (Rapid) Negative (Negative)
[2022-01-17 10:10] VITALS: BP 166/79; PULSE 83; RESP 20; TEMP 37.1; O2SAT 96
[2022-01-17 11:29] LABS: Rhinovirus/Enterovirus Detected (NotDetected)
== END 2022-01-17 10:10 | disposition home or self-care (01) ==
PROVIDERS: Emergency Provider Nurse Practitioner; PCP Internal Medicine Adolescent Medicine
DX: J02.9 Acute pharyngitis, unspecified (principal); J06.9 Acute upper respiratory infection, unspecified; R42 Dizziness and giddiness; R94.31 Abnormal electrocardiogram [ECG] [EKG]; Z20.822 Contact with and (suspected) exposure to COVID-19; R00.2 Palpitations; R06.02 Shortness of breath; R05.9 Cough, unspecified; I10 Essential (primary) hypertension; I20.9 Angina pectoris, unspecified; E78.5 Hyperlipidemia, unspecified; Z79.899 Other long term (current) drug therapy; Z87.891 Personal history of nicotine dependence
CPT/HCPCS: 87581; 87632; 87798; 87880; 99213; C9803; G0463; U0003; U0005

== ENCOUNTER → 2022-02-03 09:31 | Outpatient (CLI) | payer MEDICARE, SELFPAY ==
[2022-02-03 10:42] LABS: Basophils % 0.5 % (0.1-2.0); Eosinophils # 0.2 K/mm3 (0.0-0.4); Eosinophils % 2.7 % (0.1-12.0); Hematocrit 41.9 % (37.0-47.0); Hemoglobin 13.3 g/dL (12.2-16.2); Lymphocytes # 1.5 K/mm3 (0.7-4.5); Lymphocytes % 21.9 % (10-50); Mean Corpuscular HGB Conc 31.7 g/dL (31.8-35.4); Mean Corpuscular Hemoglobin 29.4 pg (27.0-31.2); Mean Corpuscular Volume 92.9 fl (81-99); Mean Platelet Volume 8.9 fl (7.4-10.4); Monocytes # 0.3 K/mm3 (0.1-1.0); Monocytes % 4.3 % (1.7-9.3); Neutrophils # 4.8 K/mm3 (1.8-7.8); Neutrophils % 70.7 % (37.0-80.0); Platelet Count 202 K/mm3 (142-424); Red Blood Count 4.51 M/mm3 (4.20-5.40); Red Cell Distribution Width 13.6 % (11.5-17.5); White Blood Count 6.8 K/mm3 (4.8-10.8)
[2022-02-03 11:05] LABS: Chloride 103 mmol/L (98-107); Potassium 4.8 mmoL/L (3.5-5.1); Sodium 141 mmol/L (136-145)
[2022-02-03 11:08] LABS: Alanine Aminotransferase 14 U/L (12-78); Albumin Level 3.8 g/dl (3.5-5.0); Albumin/Globulin Ratio 1.3 (1.1-1.8); Alkaline Phosphatase 88 U/L (38-126); Anion Gap 10.8 mEq/L (5-15); Aspartate Amino Transferase 26 U/L (14-36); Bilirubin,Total 0.5 mg/dl (0.2-1.3); Blood Urea Nitrogen 13 mg/dl (7-17); Carbon Dioxide 32 mmol/L (22.0-30.0); Estimated Glomerular Filt Rate 102 ml/min (>60); GFR (African American) 123 ML/MIN (>60); Globulin 2.9 g/dL (1.3-3.2); Total Protein,Serum 6.7 g/dl (6.3-8.2)
[2022-02-03 11:09] LABS: Calcium 9.3 mg/dl (8.4-10.2); Glucose 78 mg/dl (74-100)
[2022-02-04 11:44] LABS: Hepatitis B Core Antibody IgM Negative (Negative)
[2022-02-22 18:06] LABS: HBV IU/mL Negative; Hepatitis B Surface Antigen Negative
== END ==
PROVIDERS: PCP Internal Medicine Adolescent Medicine; Visit Provider Physician Assistant
DX: B18.1 Chronic viral hepatitis B without delta-agent (principal); B19.10 Unspecified viral hepatitis B without hepatic coma
CPT/HCPCS: 36415; 80053; 85025; 86704; 87340; 87517

== ENCOUNTER 2022-02-09 10:28 | Emergency (ER) | payer MEDICARE, SELFPAY ==
[2022-02-09 12:05] VITALS: BP 149/72; PULSE 76; RESP 18; TEMP 36.6; O2SAT 98; BMI 34.8
--- NOTE | 2022-02-09 12:39 | EXP.UTC ---
Discharge Plan Disposition Patient Disposition: Home, Self-Care Condition: Good Prescriptions Prescriptions: New cefdinir 300 mg capsule 300 mg PO BID Qty: 20 0RF No Action atorvastatin 10 mg tablet 10 mg PO DAILY potassium chloride 20 mEq tablet,ER particles/crystals 20 meq PO DAILY furosemide [Lasix] 40 mg tablet 40 mg PO DAILY meloxicam 15 MG tablet 15 mg PO DAILY omeprazole 40 MG capsule,delayed release(DR/EC) 40 mg PO DAILY estradiol 1 MG tablet 1 mg PO DAILY montelukast 10 MG tablet 10 mg PO HS multivitamin 1 EACH capsule 1 each PO DAILY losartan 100 MG tablet 100 mg PO DAILY fluticasone propionate 120 SPR/BOT bottle 2 spr NS DAILY Rx Instructions: each nostril oxycodone 5 MG tablet 5 mg PO Q6 ondansetron HCl 4 MG tablet 4 mg PO TID Qty: 15 0RF ondansetron HCl 4 MG tablet 4 mg PO TID Qty: 21 0RF metronidazole 500 MG tablet 500 mg PO TID Qty: 30 0RF benzonatate 100 mg capsule 100 mg PO TID PRN (Reason: cough) Qty: 20 0RF azithromycin [Zithromax Z-Ramiro] 250 mg tablet See Rx Instructions .ROUTE .COMPLEX 5 Days Qty: 6 0RF Rx Instructions: For 250 mg dose pack: take 500 mg today (day 1), then 250 mg for 4 days (days 2-5) Referrals Follow up/Referrals: Sebas Campbell MD [Primary Care Provider] - See instructions Activity Restrictions/Add. Instructions Additional Instructions/Restrictions: *Monitor Temp, Over the counter Motrin or Tylenol as directed/as needed Tylenol every 4 hours and Motrin every 6 hours (as long as your family doctor has told you that you can take it) for fever or pain. and straight to ER if unable to lower temp less than 101.0 after medication given *Warm salt water gargles may help to soothe the throat *Throat Lozenges? *Warm fluids like tea with honey may help to soothe the throat? *Sleep elevated *Humidifier/Vaporizer * Follow up IMMEDIATELY for new or worsening symptoms or no Noticeable improvement over the next 48-72 hours. 911 for difficulty breathing or swallowing Clinical Impressions Clinical Impression: Sinusitis Qualifiers: Sinusitis location: unspecified location Chronicity: unspecified Qualified Code(s): J32.9 - Chronic sinusitis, unspecified Instructions Patient Instructions: Sinusitis, DI for Sinusitis [place] [facility] [place] General Stated complaint: congestion possible UTI Mode of Arrival: Ambulatory Source of Information: Patient Limitations: No Limitations Time Seen by Provider: 02/09/22 12:39 Description of Symptoms (Recalled from Triage Doc. by RN): PATIENT C/O COUGH, RUNNY NOSE, CHEST CONGESTION, AND POSSIBLE UTI X 1 WEEK HEENT Symptoms (Recalled from RN notes): Yes Resp Symptoms (Recalled from RN notes): Yes Skin Symptoms (Recalled from RN notes): No MS Symptoms (Recalled from RN notes): No Functional Status (Recalled from RN notes): WNL History of Present Illness Provider Complaint: Patient state that she has been having cough, chest congestion and sinus congestion and pressure for about a week States that she has also been having burning with urination on and off so today when she was still not feeling well she came in to get checked out Related Data Home Medications Medication Instructions Recorded Confirmed estradiol 1 mg tablet 1 mg PO DAILY HORMONE REPLACEMENT 03/24/17 11/03/20 meloxicam 15 mg tablet 15 mg PO DAILY Arthritis 03/24/17 11/03/20 montelukast 10 mg tablet 10 mg PO HS Allergy symptoms 03/24/17 11/03/20 multivitamin 1 each PO DAILY Supplement 03/24/17 11/03/20 omeprazole 40 mg capsule,delayed 40 mg PO DAILY GERD 03/24/17 11/03/20 release atorvastatin 10 mg tablet 10 mg PO DAILY High cholesterol 09/19/18 11/03/20 potassium chloride 20 mEq 20 meq PO DAILY Supplement 09/19/19 11/03/20 tablet,extended release(part/cryst) furosemide 40 mg tablet (Lasix) 40 mg
[2022-02-09 12:43] LABS: Apearance,Urine Clear (Clear); Bilirubin,Urine Negative (Negative); Blood, Urine Negative (Negative); Color,Urine Dark Yellow (Yellow); Glucose,Urine (UA) Negative (Negative); Ketones,Urine Negative (Negative); PH,Urine 6.5 (5.0-8.5); Protein,Urine Negative (Negative)
[2022-02-09 12:44] LABS: UTC Leukocyte Esterase,Urine Negative (Negative); UTC Nitrate,Urine Negative (Negative); Urobilinogen,Urine 1 EU/dl (0.2)
[2022-02-09 13:14] VITALS: BP 149/72; PULSE 76; RESP 18; TEMP 36.6; O2SAT 98
== END 2022-02-09 13:28 | disposition home or self-care (01) ==
PROVIDERS: Emergency Provider Nurse Practitioner; PCP Internal Medicine Adolescent Medicine
DX: J32.9 Chronic sinusitis, unspecified (principal)
CPT/HCPCS: 81003; 96372; 99212; G0463

== ENCOUNTER 2022-05-02 12:12 | Emergency (ER) | payer MEDICARE, SELFPAY ==
[2022-05-02 13:05] VITALS: BP 136/64; PULSE 69; RESP 20; TEMP 36.7; O2SAT 98; BMI 29.9
--- NOTE | 2022-05-02 13:07 | EXP.UTC ---
Discharge Plan Disposition Patient Disposition: Home, Self-Care Condition: Good Prescriptions Prescriptions: New benzonatate [benzonatate] 100 mg capsule 100 mg PO TIDP PRN (Reason: Cough) Qty: 30 0RF methylprednisolone 4 mg Tablets,Dose Pack 4 mg PO DIRECTED Qty: 21 0RF amoxicillin-pot clavulanate 875-125 mg Tablet 1 tab PO Q12H Qty: 20 0RF No Action atorvastatin 10 mg tablet 10 mg PO DAILY potassium chloride 20 mEq tablet,ER particles/crystals 20 meq PO DAILY furosemide [Lasix] 40 mg tablet 40 mg PO DAILY meloxicam 15 MG tablet 15 mg PO DAILY omeprazole 40 MG capsule,delayed release(DR/EC) 40 mg PO DAILY estradiol 1 MG tablet 1 mg PO DAILY montelukast 10 MG tablet 10 mg PO HS multivitamin 1 EACH capsule 1 each PO DAILY losartan 100 MG tablet 100 mg PO DAILY fluticasone propionate 120 SPR/BOT bottle 2 spr NS DAILY Rx Instructions: each nostril oxycodone 5 MG tablet 5 mg PO Q6 ondansetron HCl 4 MG tablet 4 mg PO TID Qty: 15 0RF ondansetron HCl 4 MG tablet 4 mg PO TID Qty: 21 0RF metronidazole 500 MG tablet 500 mg PO TID Qty: 30 0RF cefdinir 300 mg capsule 300 mg PO BID Qty: 20 0RF benzonatate 100 mg capsule 100 mg PO TID PRN (Reason: cough) Qty: 20 0RF azithromycin [Zithromax Z-Ramiro] 250 mg tablet See Rx Instructions .ROUTE .COMPLEX 5 Days Qty: 6 0RF Rx Instructions: For 250 mg dose pack: take 500 mg today (day 1), then 250 mg for 4 days (days 2-5) Referrals Follow up/Referrals: Sebas Campbell MD [Primary Care Provider] - See instructions Activity Restrictions/Add. Instructions Additional Instructions/Restrictions: Drink plenty of fluids. Take tylenol or ibuprofen for pain or fever. Take the medications as directed. Follow up with your regular doctor. GO TO THE ER FOR ANY WORSENING SYMPTOMS Clinical Impressions Clinical Impression: Bronchitis, Sinusitis Instructions Patient Instructions: DI for Sinusitis, DI for Acute Bronchitis Discharge ED Provider: Carlo Veloz [facility] [place] HPI General Stated complaint: body aches , sore throat cough Time Seen by Provider: 05/02/22 13:07 History of Present Illness Provider Complaint: She states that for the past 2 weeks she has had sinus and chest congestion, productive cough with yellowish sputum, sore throat and ear pain. Related Data Home Medications Medication Instructions Recorded Confirmed estradiol 1 mg tablet 1 mg PO DAILY HORMONE REPLACEMENT 03/24/17 11/03/20 meloxicam 15 mg tablet 15 mg PO DAILY Arthritis 03/24/17 11/03/20 montelukast 10 mg tablet 10 mg PO HS Allergy symptoms 03/24/17 11/03/20 multivitamin 1 each PO DAILY Supplement 03/24/17 11/03/20 omeprazole 40 mg capsule,delayed 40 mg PO DAILY GERD 03/24/17 11/03/20 release atorvastatin 10 mg tablet 10 mg PO DAILY High cholesterol 09/19/18 11/03/20 potassium chloride 20 mEq 20 meq PO DAILY Supplement 09/19/19 11/03/20 tablet,extended release(part/cryst) furosemide 40 mg tablet (Lasix) 40 mg PO DAILY Fluid 09/20/19 11/03/20 fluticasone propionate 50 2 spr NS DAILY Allergy symptoms 09/04/20 11/03/20 mcg/actuation nasal spray,suspension losartan 100 mg tablet 100 mg PO DAILY High blood pressure 09/04/20 11/03/20 oxycodone 5 mg tablet 5 mg PO Q6 Pain 09/04/20 11/03/20 Previous Rx's Medication Instructions Recorded ondansetron HCl 4 mg tablet 4 mg PO TID nausea #15 tabs 09/04/20 metronidazole 500 mg tablet 500 mg PO TID #30 tabs 11/03/20 ondansetron HCl 4 mg tablet 4 mg PO TID nausea #21 tabs 11/03/20 azithromycin 250 mg tablet See Rx Instructions PO .COMPLEX 5 01/17/22 (Zithromax Z-Ramiro) days #6 tabs benzonatate 100 mg capsule 100 mg PO TID PRN cough #20 caps 01/17/22 cefdinir 300 mg capsule 300 mg PO BID #20 caps 02/09/22 amoxicillin 875 mg-potassium 1 tab PO Q12H #20 tabs 05/02/22 clavulanate 125 mg tablet benzonatate 100
[2022-05-02 13:25] LABS: UTC Influenza A Antigen Negative (Negative); UTC Strep Screen (Rapid) Negative (Negative)
[2022-05-02 13:26] LABS: UTC Influenza B Antigen Negative (Negative)
[2022-05-02 13:52] VITALS: BP 136/64; PULSE 69; RESP 20; TEMP 36.7; O2SAT 98
== END 2022-05-02 13:58 | disposition home or self-care (01) ==
PROVIDERS: Emergency Provider Nurse Practitioner Family; PCP Internal Medicine Adolescent Medicine
DX: J40 Bronchitis, not specified as acute or chronic (principal); J32.9 Chronic sinusitis, unspecified
CPT/HCPCS: 87804; 87880; 99212; 99213; G0463

== ENCOUNTER 2022-12-25 13:45 | Emergency (ER) | payer MEDICARE, SELFPAY ==
[2022-12-25 13:50] VITALS: BP 161/92; PULSE 81; RESP 20; TEMP 36.8; O2SAT 96; BMI 36.4
--- NOTE | 2022-12-25 13:58 | XR_ITS ---
FINAL REPORT CLINICAL HISTORY: CONGESTION, cough COMPARISON: 11/03/2020 FINDINGS: Two views of the chest were obtained. The heart size and pulmonary vascularity are within normal limits. The mediastinum is normal. No acute pulmonary abnormality is identified. There is no pneumothorax. The bony thorax is intact. There are postoperative changes in the right humeral head. IMPRESSION: No active cardiopulmonary disease. Reviewed, Interpreted and Dictated by Ashok Diez III, MD Transcribed by Arti Phillips Authenticated and . [facility]
--- NOTE | 2022-12-25 14:02 | XR_ITS ---
FINAL REPORT CLINICAL HISTORY: PAIN COMPARISON: None FINDINGS: Three views of the bilateral ribs were obtained. There is no acute displaced rib fracture. There are postoperative changes in lower cervical spine. IMPRESSION: No acute bilateral rib fracture and no pneumothorax. Reviewed, Interpreted and Dictated by Ashok Diez III, MD Transcribed by Arti Phillips Authenticated and . [facility]
--- NOTE | 2022-12-25 14:04 | EXP.UTC ---
Discharge Plan Disposition Patient Disposition: Home, Self-Care Condition: Good Prescriptions Prescriptions: New amoxicillin [amoxicillin] 875 mg tablet 875 mg PO Q12H Qty: 20 0RF benzonatate [benzonatate] 100 mg capsule 100 mg PO TIDP PRN (Reason: Cough) Qty: 30 0RF methylprednisolone 4 mg Tablets,Dose Pack 4 mg PO DIRECTED Qty: 21 0RF No Action atorvastatin 10 mg tablet 10 mg PO DAILY potassium chloride 20 mEq tablet,ER particles/crystals 20 meq PO DAILY furosemide [Lasix] 40 mg tablet 40 mg PO DAILY meloxicam 15 MG tablet 15 mg PO DAILY omeprazole 40 MG capsule,delayed release(DR/EC) 40 mg PO DAILY estradiol 1 MG tablet 1 mg PO DAILY montelukast 10 MG tablet 10 mg PO HS multivitamin 1 EACH capsule 1 each PO DAILY losartan 100 MG tablet 100 mg PO DAILY fluticasone propionate 120 SPR/BOT bottle 2 spr NS DAILY Rx Instructions: each nostril oxycodone 5 MG tablet 5 mg PO Q6 Referrals Follow up/Referrals: Sebas Campbell MD [Primary Care Provider] - See instructions Activity Restrictions/Add. Instructions Additional Instructions/Restrictions: Drink plenty of fluids. Take tylenol or ibuprofen for pain or fever. Take the medications as directed. Follow up with your regular doctor. GO TO THE ER FOR ANY WORSENING SYMPTOMS Clinical Impressions Clinical Impression: Bronchitis, Sinusitis, Acute viral syndrome Instructions Patient Instructions: Sinusitis, DI for Sinusitis [place]charge ED Provider[place] [facility] [place] General Stated complaint: cough, rib pain, soa Time Seen by Provider: 12/25/22 14:03 History of Present Illness Provider Complaint: She states that for the past 4 days she has had a chest congestion, productive cough, sinus congestion, and malaise. She states that when she coughs her ribs hurt. She is worried that she may have broke a rib from coughing so much. Related Data Home Medications Medication Instructions Recorded Confirmed estradiol 1 mg tablet 1 mg PO DAILY HORMONE REPLACEMENT 03/24/17 12/25/22 meloxicam 15 mg tablet 15 mg PO DAILY Arthritis 03/24/17 11/03/20 montelukast 10 mg tablet 10 mg PO HS Allergy symptoms 03/24/17 12/25/22 multivitamin 1 each PO DAILY Supplement 03/24/17 11/03/20 omeprazole 40 mg capsule,delayed 40 mg PO DAILY GERD 03/24/17 12/25/22 release atorvastatin 10 mg tablet 10 mg PO DAILY High cholesterol 09/19/18 11/03/20 potassium chloride 20 mEq 20 meq PO DAILY Supplement 09/19/19 11/03/20 tablet,extended release(part/cryst) furosemide 40 mg tablet (Lasix) 40 mg PO DAILY Fluid 09/20/19 11/03/20 fluticasone propionate 50 2 spr NS DAILY Allergy symptoms 09/04/20 11/03/20 mcg/actuation nasal spray,suspension losartan 100 mg tablet 100 mg PO DAILY High blood pressure 09/04/20 11/03/20 oxycodone 5 mg tablet 5 mg PO Q6 Pain 09/04/20 11/03/20 Previous Rx's Medication Instructions Recorded amoxicillin 875 mg tablet 875 mg PO Q12H #20 tabs 12/25/22 benzonatate 100 mg capsule 100 mg PO TIDP PRN Cough #30 caps 12/25/22 methylprednisolone 4 mg tablets in 4 mg PO DIRECTED #21 tabs 12/25/22 a dose pack Allergies Allergy/AdvReac Type Severity Reaction Status Date / Time No Known Allergies Allergy Verified 09/04/20 19:44 [facility] Disclaimer: The information contained in this section may have been updated after the patient was seen, as this information can be updated by other users. Medical History Abnormal stress test Angina, class III Anxiety Cancer Depression Dizziness Edema Ex-smoker Family history of coronary artery disease History of anemia HLD (hyperlipidemia) HTN (hypertension) Palpitations SOB (shortness of breath) Surgical History History of cholecystectomy Social History (Reviewed 12/25/22 @ 14:06 b
[2022-12-25 15:06] VITALS: BP 161/92; PULSE 81; RESP 18; TEMP 36.8; O2SAT 96
== END 2022-12-25 15:06 | disposition home or self-care (01) ==
PROVIDERS: Emergency Provider Nurse Practitioner Family; PCP Internal Medicine Adolescent Medicine
DX: J20.9 Acute bronchitis, unspecified (principal); J01.90 Acute sinusitis, unspecified; R06.02 Shortness of breath; R07.81 Pleurodynia; I20.89 Other forms of angina pectoris; E78.5 Hyperlipidemia, unspecified; I10 Essential (primary) hypertension; F41.9 Anxiety disorder, unspecified; F32.A Depression, unspecified; Z87.891 Personal history of nicotine dependence
CPT/HCPCS: 71046; 71111; 87635; 96372; 99212; 99214; G0463; J0696

== ENCOUNTER 2023-04-24 14:35 | Emergency (ER) | payer MEDICARE, SELFPAY ==
[2023-04-24 14:50] VITALS: BP 133/67; PULSE 93; RESP 20; TEMP 38.1; O2SAT 98; BMI 39.8
[2023-04-24 15:10] LABS: UTC Influenza A Antigen Negative (Negative); UTC Influenza B Antigen Negative (Negative)
--- NOTE | 2023-04-24 15:14 | EXP.UTC ---
Discharge Plan Disposition Patient Disposition: Home, Self-Care Condition: Good Prescriptions Prescriptions: New prednisone [prednisone] 20 mg tablet 20 mg PO BID Qty: 10 0RF Rx Instructions: start tomorrow No Action celecoxib 200 mg capsule 200 mg PO DAILY omeprazole 40 mg capsule,delayed release(DR/EC) 40 mg PO DAILY estradiol 1 mg tablet 1 mg PO DAILY Referrals Follow up/Referrals: Sebas Campbell MD [Primary Care Provider] - See instructions Activity Restrictions/Add. Instructions Additional Instructions/Restrictions: No sign of a bacterial infection. Likely viral. Viruses can take 7-14 days to run their course. Nasal saline and bulb syringe or nose Tatyana to remove nasal drainage to help with nasal congestion. Hard to eat, drink, sleep with nasal congestion so important to keep this cleaned out. Monitor temp. Tylenol or Motrin as needed for pain or fever Encourage fluids, water, Gatorade, Powerade, Pedialyte if /toddler/child Warm salt water gargles Warm fluids Sore throat lozenges Sleep elevated Humidifier/vaporizer Follow-up immediately for new or worsening symptoms or no noticeable improvement over the next 48-72 hours. Clinical Impressions Clinical Impression: URI (upper respiratory infection) Qualifiers: URI type: unspecified viral URI Qualified Code(s): J06.9 - Acute upper respiratory infection, unspecified Instructions Patient Instructions: DI for Viral Upper Respiratory Infection -- Adult Discharge ED Provider: Quinten ([facility])Jesus [facility] [place] HPI General Stated complaint: fever cough body aches Mode of Arrival: Ambulatory Source of Information: Patient Limitations: No Limitations Time Seen by Provider: 04/24/23 15:14 Description of Symptoms (Recalled from Triage Doc. by RN): PATIENT C/O BODY ACHES, DRY COUGH, RIB PAIN, AND HEADACHE SINCE YESTERDAY HEENT Symptoms (Recalled from RN notes): Yes Resp Symptoms (Recalled from RN notes): Yes Skin Symptoms (Recalled from RN notes): No MS Symptoms (Recalled from RN notes): No Functional Status (Recalled from RN notes): WNL History of Present Illness Provider Complaint: 62 yr old female presents for sore throat,cough,rib pain, body aches and chowdhury since yesterday Related Data Home Medications Medication Instructions Recorded Confirmed celecoxib 200 mg capsule 200 mg PO DAILY 02/03/24 02/03/24 estradiol 1 mg tablet 1 mg PO DAILY 04/24/23 04/24/23 omeprazole 40 mg capsule,delayed 40 mg PO DAILY 04/24/23 04/24/23 release Previous Rx's Medication Instructions Recorded prednisone 20 mg tablet 20 mg PO BID #10 tabs 04/24/23 Allergies Allergy/AdvReac Type Severity Reaction Status Date / Time No Known Allergies Allergy Verified 09/04/20 19:44 Worker's Comp Is this a Worker's Comp case?: No [facility] Disclaimer: The information contained in this section may have been updated after the patient was seen, as this information can be updated by other users. Medical History , CARE AID) Abnormal stress test Angina, class III Anxiety Cancer Depression Dizziness Edema Ex-smoker Family history of coronary artery disease History of anemia HLD (hyperlipidemia) HTN (hypertension) Palpitations SOB (shortness of breath) Surgical History , CARE AID) History of cholecystectomy Social History , CARE AID) Smoking Status: Former smoker second hand exposure: No alcohol intake: never substance use type: denies use current occupational status: employed Travel in the last 8 weeks: None household members: family housing: house current occupational exposures/hazards: No caffeine: No ROS Obtained: Yes All systems reviewed & no additional complaints except as documented Constitutional Constitutional: Reports system reviewed and no additional complaints, except as documented, Reports as per HPI, Reports body ache and Reports headache(s) Eyes Eyes: Reports system reviewed and no additional complaints, except as documented ENT Ears, Nose, Mouth, and Throat: Reports system reviewed and no additional complaints, except as documented, Reports as per HPI, Reports headache(s), Reports nasal congestion, Reports nasal discharge, Reports sinus pain, Reports sinus pressure and Reports sore throat Cardiovascular Cardiovascular: Reports system reviewed and no additional complaints, except as documented Respiratory Respiratory: Reports system reviewed and no additional complaints, except as documented, Reports as per HPI, Reports chest congestion, Reports cough and Reports pain with cough Musculoskeletal Musculoskeletal: Reports system reviewed and no additional complaints, except as documented Neurologic Neurologic: Reports system reviewed and no additional complaints, except as documented, Reports as per HPI and Reports headache(s) Endocrine Endocrine: Reports system reviewed and no additional complaints, except as documented Hematologic/Lymphatic Henatologic/Lymphatic: Reports system reviewed and no additional complaints, except as documented Allergic/Immunologic Allergic/Immunologic: Reports system reviewed and no additional complaints, except as documented Physical Exam General General appearance: alert and in no apparent distress Head Head exam: atraumatic Eye Eye exam: Present normal appearance and PERRL ENT ENT exam: Present mucous membranes moist and TM's normal bilaterally Expanded ENT Exam Comment: pharynx red Respiratory Respiratory exam: Present wheezes Cardiovascular Cardiovascular exam: Present regular rate and normal rhythm Neurological Exam Neurological exam: Present alert and oriented X3 Skin Skin exam: Present warm and intact Medical Decision Making Medical Records Medical records reviewed: Yes I reviewed the patient's medical records. Tam Inquiry Pt receiving controlled substance: No Tam was queried for this patient: No Vital Signs: 04/24/23 14:50 Temperature 100.5 F H Temperature Source Oral Pulse Rate [Left Brachial] 93 H Respiratory Rate 20 Blood Pressure [Left Arm] 133/67 Blood Pressure Mean [Left Arm] 89 Blood Pressure Source [Left Arm] Automatic Cuff Blood Pressure Position [Left Arm] Sitting 02 Sat by Pulse Oximetry 98 Oxygen Delivery Method Room Air Lab Data Lab results reviewed: Yes I reviewed the patient's lab results. Lab Results 04/24/23 14:52: Influenza Type A Ag Negative, Influenza Type B Ag Negative
[2023-04-24 15:30] LABS: UTC Strep Screen (Rapid) Negative (Negative)
[2023-04-24] MEDS: DEXAMETHASONE 4MG/ML 1ML VIAL 4 MG IM (15:36)
[2023-04-24 15:37] VITALS: BP 133/67; PULSE 93; RESP 20; TEMP 38.1; O2SAT 98
== END 2023-04-24 15:45 | disposition home or self-care (01) ==
PROVIDERS: Emergency Provider Nurse Practitioner Family; PCP Internal Medicine Adolescent Medicine
DX: R07.1 Chest pain on breathing (principal); R05.9 Cough, unspecified; R50.9 Fever, unspecified; R51.9 Headache, unspecified; R09.81 Nasal congestion; R07.0 Pain in throat; M79.18 Myalgia, other site; J06.9 Acute upper respiratory infection, unspecified; B34.9 Viral infection, unspecified; I10 Essential (primary) hypertension; E78.5 Hyperlipidemia, unspecified
CPT/HCPCS: 87804; 87880; 96372; 99212; 99214; G0463

== ENCOUNTER 2023-05-22 22:13 | Observation (INO) | payer MEDICARE, SELFPAY ==
--- NOTE | 2023-05-22 | ECG_ITS ---
APPROVED REPORT Exam: Resting ECG HR:96 bpm ECG Measurements Heart Rate 96 AXES NH 143 P 63 QRSd 99 QRS 13 QT 321 T 72 QTc 375 Conclusion SINUS RHYTHM MINIMAL ST DEPRESSION [0.025+ mV ST DEPRESSION] BORDERLINE ECG Electronically signed by : TRACI BURKS, 06/24/2023 15:33:13
[2023-05-22 22:14] VITALS: BP 154/78; PULSE 95; RESP 16; TEMP 36.6; O2SAT 97; BMI 35.5
[2023-05-22 22:16] VITALS: BP 154/78; PULSE 90; RESP 13; O2SAT 97
[2023-05-22 22:31] VITALS: BP 145/82; PULSE 88; RESP 14; O2SAT 95
--- NOTE | 2023-05-22 22:40 | XR_ITS ---
PROCEDURE INFORMATION: Exam: XR Chest Exam date and time: 05/22/2023 10:40 PM Age: 62 years old Clinical indication: Shortness of breath; Additional info: Cp, SOA TECHNIQUE: Imaging protocol: Radiologic exam of the chest. Views: 1 view. COMPARISON: CR XR RIBS BI MIN 4V W CXR1V 12/25/2022 2:05 PM FINDINGS: Lungs: Unremarkable. No consolidation. Pleural spaces: Unremarkable. No pleural effusion. No pneumothorax. Heart/Mediastinum: Unremarkable. No cardiomegaly. Bones/joints: Unremarkable. IMPRESSION: Stable chest x-ray with no acute disease.
[2023-05-22 22:48] LABS: Basophils # 0.1 K/mm3 (0-0.2); Basophils % 0.5 % (0.1-2.0); Eosinophils # 0.3 K/mm3 (0.0-0.4); Eosinophils % 2.4 % (0.1-12.0); Hematocrit 42.9 % (37.0-47.0); Hemoglobin 13.9 g/dL (12.2-16.2); Lymphocytes # 2.7 K/mm3 (0.7-4.5); Lymphocytes % 21.4 % (10-50); Mean Corpuscular HGB Conc 32.4 g/dL (31.8-35.4); Mean Corpuscular Hemoglobin 30.6 pg (27.0-31.2); Mean Corpuscular Volume 94.5 fl (81-99); Mean Platelet Volume 9.2 fl (7.4-10.4); Monocytes # 0.6 K/mm3 (0.1-1.0); Monocytes % 4.7 % (1.7-9.3); Neutrophils % 70.9 % (37.0-80.0); Platelet Count 267 K/mm3 (142-424); Red Blood Count 4.54 M/mm3 (4.20-5.40); Red Cell Distribution Width 14.1 % (11.5-17.5); White Blood Count 12.7 K/mm3 (4.8-10.8)
[2023-05-22 22:51] LABS: Alanine Aminotransferase 20 U/L (12-78); Albumin/Globulin Ratio 1.4 (1.1-1.8); Alkaline Phosphatase 104 U/L (38-126); Anion Gap 9.5 mEq/L (5-15); Aspartate Amino Transferase 24 U/L (14-36); Bilirubin,Total 0.4 mg/dl (0.2-1.3); Blood Urea Nitrogen 19 mg/dl (7-17); Calcium 8.6 mg/dl (8.4-10.2); Carbon Dioxide 29 mmol/L (22.0-30.0); Chloride 104 mmol/L (98-107); Creatinine Clearance Estimated 93 mL/min (50-200); Estimated Glomerular Filt Rate 73 ml/min (>60); GFR (African American) 88 ML/MIN (>60); Globulin 2.9 g/dL (1.3-3.2); Glucose 142 mg/dl (74-100); Potassium 3.5 mmoL/L (3.5-5.1); Sodium 139 mmol/L (136-145); Total Protein,Serum 6.9 g/dl (6.3-8.2)
[2023-05-22] MEDS: ASPIRIN 81MG CHEWABLE TABLET 324 MG PO (22:57)
[2023-05-22 23:01] VITALS: BP 147/66; PULSE 83; RESP 16; O2SAT 97
[2023-05-22 23:03] LABS: NT Pro Brain Natriuretic Pep. 102 pg/mL (0-125)
--- NOTE | 2023-05-22 23:03 | [facility].EDCP ---
Discharge Plan Disposition Patient Disposition: Admitted Condition: Undetermined Chief Complaint: Chest Pain Prescriptions Prescriptions: No Action montelukast 10 mg tablet 10 mg PO DAILY celecoxib 200 mg capsule 200 mg PO DAILY omeprazole 40 mg capsule,delayed release(DR/EC) 40 mg PO DAILY estradiol 1 mg tablet 1 mg PO DAILY prednisone [prednisone] 20 mg tablet 20 mg PO BID Qty: 10 0RF Rx Instructions: start tomorrow Referrals Follow up/Referrals: Sebas Campbell MD [Primary Care Provider] - See instructions Clinical Impressions Clinical Impression: Chest pain Discharge ED Provider: Tunde Walker HPI <Tunde Walker MD - Last Filed: 05/22/23 23:09> General Chief Complaint: Chest Pain Stated Complaint: chest pain Time Seen by Provider: 05/22/23 22:21 Mode of Arrival: Ambulatory Source of Information: Patient Limitations: No Limitations Description of Symptoms (Recalled from ER Triage Doc. by RN): Pt presents with midsternal chest pain that began this morning and worsened throughout the day. Pt states she had a similar episode last weekend that went away. Pt describes feeling hot and nauseated with one episode of vomiting. No cardiac hx. History of Present Illness HPI narrative: 62-year-old female history of hypertension, hyperlipidemia, CAD, unprovoked DVT presenting with exertional shortness of breath. She states that this is been going on on and off for about a week. Most recent episode started this afternoon. It is exertional associated with chest pressure that substernal and does not radiate. Pressure made better with rest. She states that she did have 1 episode of vomiting. Denies diaphoresis, syncopal episodes, neurologic deficits, or any other concerns. Related Data Home Medications Medication Instructions Recorded Confirmed celecoxib 200 mg capsule 200 mg PO DAILY 04/24/23 04/29/23 estradiol 1 mg tablet 1 mg PO DAILY 04/24/23 04/29/23 omeprazole 40 mg capsule,delayed 40 mg PO DAILY 04/24/23 04/29/23 release montelukast 10 mg tablet 10 mg PO DAILY 04/29/23 04/29/23 Previous Rx's Medication Instructions Recorded prednisone 20 mg tablet 20 mg PO BID #10 tabs 04/24/23 Allergies Allergy/AdvReac Type Severity Reaction Status Date / Time No Known Allergies Allergy Verified 04/29/23 11:43 PFSH <Tunde Walker MD - Last Filed: 05/22/23 23:09> [facility] Disclaimer: The information contained in this section may have been updated after the patient was seen, as this information can be updated by other users. Medical History (Updated 05/23/23 @ 01:35 by Matilda Guan MD) Abnormal stress test Angina, class III Anxiety Cancer Depression Dizziness Edema Ex-smoker Family history of coronary artery disease History of anemia HLD (hyperlipidemia) HTN (hypertension) Palpitations SOB (shortness of breath) Surgical History History of cholecystectomy Social History Smoking Status: Current every day smoker second hand exposure: No alcohol intake: never substance use type: denies use current occupational status: employed Travel in the last 8 weeks: None household members: family housing: house current occupational exposures/hazards: No caffeine: No <Tunde Walker MD - Last Filed: 05/22/23 23:09> ROS Obtained: Yes All systems reviewed & no additional complaints except as documented Physical Exam <Tunde Walker MD - Last Filed: 05/22/23 23:09> General General appearance: alert Neck Neck exam: Present trachea midline Chest Chest inspection: Present normal inspection and symmetric chest wall rise Respiratory Respiratory exam: Present normal lung sounds bilaterally; Absent respiratory distress, wheezes, stridor, accessory muscle use or prolonged expiratory phase Cardiovascular Cardiovascular exam: Present regular rate, normal rhythm and systolic murmur (Right upper sternal border) Extremities Exam Extremities exam: Absent edema Neurological Exam Neurological exam: Present alert, oriented X3 and CN II-XII intact Skin Skin exam: Present warm and dry; Absent cyanosis, diaphoresis or pallor HEART Score <Tunde Walker MD - Last Filed: 05/22/23 23:09> HEART Score HEART Score assessment performed?: Yes History (anamnesis): Highly suspicious ECG: Normal Age: 45-65 years Risk factors: 3 or more risk factors Troponin: </= normal limit HEART Score: 5 <Matilda Guan MD - Last Filed: 05/23/23 01:35> HEART Score HEART Score: 5 Critical Care <Tunde Walker MD - Last Filed: 05/22/23 23:09> Critical Care Time Critical Care Time: No Medical Decision Making <Tunde Walker MD - Last Filed: 05/22/23 23:09> Medical Records Medical records reviewed: Yes I reviewed the patient's medical records. Tam Inquiry Pt receiving controlled substance: No Tam was queried for this patient: No Vital Signs Vital Signs: 05/22/23 22:14 05/22/23 22:16 05/22/23 22:31 Temperature 97.9 F Temperature Source Oral Pulse Rate 90 88 Pulse Rate [Left] 95 H Respiratory Rate 16 13 14 Blood Pressure 154/78 H 145/82 H Blood Pressure [Right Arm] 154/78 H Blood Pressure Mean 110 103 Blood Pressure Mean [Right Arm] 103 Blood Pressure Source [Right Arm] Automatic Cuff Blood Pressure Position [Right Arm] Sitting 02 Sat by Pulse Oximetry 97 97 95 Oxygen Delivery Method Room Air Room Air Room Air 05/22/23 23:01 05/22/23 23:31 05/23/23 00:00 Temperature Temperature Source Pulse Rate 83 89 84 Pulse Rate [Left] Respiratory Rate 16 17 20 Blood Pressure 147/66 H 126/55 L 110/67 Blood Pressure [Right Arm] Blood Pressure Mean 93 81 82 Blood Pressure Mean [Right Arm] Blood Pressure Source [Right Arm] Blood Pressure Position [Right Arm] 02 Sat by Pulse Oximetry 97 98 96 Oxygen Delivery Method Room Air Room Air Room Air 05/23/23 00:30 05/23/23 01:00 Temperature Temperature Source Pulse Rate 85 81 Pulse Rate [Left] Respiratory Rate 18 19 Blood Pressure 110/64 133/73 Blood Pressure [Right Arm] Blood Pressure Mean 80 90 Blood Pressure Mean [Right Arm] Blood Pressure Source [Right Arm] Blood Pressure Position [Right Arm] 02 Sat by Pulse Oximetry 97 93 L Oxygen Delivery Method Room Air Lab Data Labs: Lab Results 05/22/23 22:22: WBC 12.7 H, RBC 4.54, Hgb 13.9, Hct 42.9, MCV 94.5, MCH 30.6, MCHC 32.4, RDW 14.1, Plt Count 267, MPV 9.2, Neut % (Auto) 70.9, Lymph % (Auto) 21.4, [place] % (Auto) 4.7, Eos % (Auto) 2.4, Baso % (Auto) 0.5, Neut # (Auto) 9.0 H, Lymph # (Auto) 2.7, [place] # (Auto) 0.6, Eos # (Auto) 0.3, Baso # (Auto) 0.1, D-Dimer 0.48, Sodium 139, Potassium 3.5, Chloride 104, Carbon Dioxide 29, Anion Gap 9.5, BUN 19 H, Creatinine 0.80, Estimated Creat Clear 93, Estimated GFR 73, Est GFR ( Amer) 88, Glucose 142 H, Calcium 8.6, Total Bilirubin 0.4, AST 24, ALT 20, Alkaline Phosphatase 104, Troponin I < 0.01, NT-Pro-B Natriuret Pep 102, Total Protein 6.9, Albumin 4.0, Globulin 2.9, Albumin/Globulin Ratio 1.4 05/23/23 00:50: Troponin I < 0.01 05/22/23 22:22 05/22/23 22:22 Response Orders (Tests/Meds): ED MEDICATIONS Discontinued Medications Generic Name Dose Route Start Last Admin Trade Name Danii PRN Reason Stop Dose Admin Aspirin 324 mg 05/22/23 22:40 05/22/23 22:57 Aspirin 81mg Chewable Tablet PO 05/22/23 22:41 324 mg ONCE ONE Administration ORDERS Category Date Time Status CXR --portable [XR chest portable] Stat Exams 05/22/23 22:40 Completed Brain Natriuretic Peptide Stat Lab 05/22/23 22:22 Completed CBC w/Auto Diff [Complete Blood Count Auto Diff] Stat Lab 05/22/23 22:22 Completed CMP [Comprehensive Metabolic Panel] Stat Lab 05/22/23 22:22 Completed D-Dimer Stat Lab 05/22/23 22:22 Completed Trop T [Troponin I] Stat Lab 05/22/23 22:22 Completed Troponin I Q3H Lab 05/23/23 00:50 Completed Troponin I Q3H Lab 05/23/23 04:45 Ordered MDM Narrative Medical Decision Narrative: 62-year-old female history of hypertension, hyperlipidemia, CAD, unprovoked DVT presenting with exertional shortness of breath. She states that this is been going on on and off for about a week. Most recent episode started this afternoon. It is exertional associated with chest pressure that substernal and does not radiate. Pressure made better with rest. She states that she did have 1 episode of vomiting. Denies diaphoresis, syncopal episodes, neurologic deficits, or any other concerns. History was obtained via conversation with patient. On arrival, patient hemodynamically stable, alert, oriented x4, appropriate, GCS 15, moving all extremities spontaneously, pupils equal and reactive to light. Full physical exam performed and significant for well-appearing woman in no acute distress. Lungs are clear to auscultation bilaterally. Patient does have right upper sternal border murmur that radiates to her carotids. Pulses equal and symmetric. In no acute distress, hypertensive, nontachycardic, saturating appropriately on room air.. Differential includes microvascular coronary artery disease, CHF, ACS, DC, coronary artery dissection, pneumothorax, PE, dissection, pericarditis, myocarditis, pneumothorax, aortic aneurysm, pneumonia, bronchitis, among others. Patient was given 324 mg for symptomatic management and correction of underlying abnormalities. Workup independently interpreted and significant for mild leukocytosis 12.7, nonactionable chemistry or CBC overall. LFTs normal. Initial troponin undetectable and BNP negative. Chest x-ray with no acute cardiopulmonary airspace disease. See radiology read for full review of final results. Independent interpretation of EKG shows sinus rhythm 96 beats a minute without ST or T wave changes concerning for acute ischemia. MN, QRS, QT intervals within normal limits. Patient placed on continuous cardiac monitoring and continuous pulse ox with initial blood pressure 144/66, heart rate 84, saturation 95. Heart score 5. Patient's presentation is concerning for anginal equivalent. Given heart score 5 and concern for cardiac chest pressure, patient likely to be candidate for admission and further workup versus close outpatient follow-up. Prior to final troponin and reevaluation, candidate for oncoming physician. <Matilda Guan MD - Last Filed: 05/23/23 01:35> Vital Signs Vital Signs: 05/22/23 22:14 05/22/23 22:16 05/22/23 22:31 Temperature 97.9 F Temperature Source Oral Pulse Rate 90 88 Pulse Rate [Left] 95 H Respiratory Rate 16 13 14 Blood Pressure 154/78 H 145/82 H Blood Pressure [Right Arm] 154/78 H Blood Pressure Mean 110 103 Blood Pressure Mean [Right Arm] 103 Blood Pressure Source [Right Arm] Automatic Cuff Blood Pressure Position [Right Arm] Sitting 02 Sat by Pulse Oximetry 97 97 95 Oxygen Delivery Method Room Air Room Air Room Air 05/22/23 23:01 05/22/23 23:31 05/23/23 00:00 Temperature Temperature Source Pulse Rate 83 89 84 Pulse Rate [Left] Respiratory Rate 16 17 20 Blood Pressure 147/66 H 126/55 L 110/67 Blood Pressure [Right Arm] Blood Pressure Mean 93 81 82 Blood Pressure Mean [Right Arm] Blood Pressure Source [Right Arm] Blood Pressure Position [Right Arm] 02 Sat by Pulse Oximetry 97 98 96 Oxygen Delivery Method Room Air Room Air Room Air 05/23/23 00:30 05/23/23 01:00 Temperature Temperature Source Pulse Rate 85 81 Pulse Rate [Left] Respiratory Rate 18 19 Blood Pressure 110/64 133/73 Blood Pressure [Right Arm] Blood Pressure Mean 80 90 Blood Pressure Mean [Right Arm] Blood Pressure Source [Right Arm] Blood Pressure Position [Right Arm] 02 Sat by Pulse Oximetry 97 93 L Oxygen Delivery Method Room Air Lab Data Labs: Lab Results 05/22/23 22:22: WBC 12.7 H, RBC 4.54, Hgb 13.9, Hct 42.9, MCV 94.5, MCH 30.6, MCHC 32.4, RDW 14.1, Plt Count 267, MPV 9.2, Neut % (Auto) 70.9, Lymph % (Auto) 21.4, [place] % (Auto) 4.7, Eos % (Auto) 2.4, Baso % (Auto) 0.5, Neut # (Auto) 9.0 H, Lymph # (Auto) 2.7, [place] # (Auto) 0.6, Eos # (Auto) 0.3, Baso # (Auto) 0.1, D-Dimer 0.48, Sodium 139, Potassium 3.5, Chloride 104, Carbon Dioxide 29, Anion Gap 9.5, BUN 19 H, Creatinine 0.80, Estimated Creat Clear 93, Estimated GFR 73, Est GFR ( Amer) 88, Glucose 142 H, Calcium 8.6, Total Bilirubin 0.4, AST 24, ALT 20, Alkaline Phosphatase 104, Troponin I < 0.01, NT-Pro-B Natriuret Pep 102, Total Protein 6.9, Albumin 4.0, Globulin 2.9, Albumin/Globulin Ratio 1.4 05/23/23 00:50: Troponin I < 0.01 Response Orders (Tests/Meds): ED MEDICATIONS Discontinued Medications Generic Name Dose Route Start Last Admin Trade Name Danii PRN Reason Stop Dose Admin Aspirin 324 mg 05/22/23 22:40 05/22/23 22:57 Aspirin 81mg Chewable Tablet PO 05/22/23 22:41 324 mg ONCE ONE Administration ORDERS Category Date Time Status CXR --portable [XR chest portable] Stat Exams 05/22/23 22:40 Completed Brain Natriuretic Peptide Stat Lab 05/22/23 22:22 Completed CBC w/Auto Diff [Complete Blood Count Auto Diff] Stat Lab 05/22/23 22:22 Completed CMP [Comprehensive Metabolic Panel] Stat Lab 05/22/23 22:22 Completed D-Dimer Stat Lab 05/22/23 22:22 Completed Trop T [Troponin I] Stat Lab 05/22/23 22:22 Completed Troponin I Q3H Lab 05/23/23 00:50 Completed Troponin I Q3H Lab 05/23/23 04:45 Ordered ECG Data Tracing #1: ECG Narrative: IMatilda MD independently reviewed and interpreted EKG obtained at 05/22/2023 10:15 PM. I reviewed this at 1:00 AM and noted normal rate, regular rhythm, no significant ST segment elevations or depressions, normal sinus rhythm. Dr. Tunde Walker had reviewed and signed the EKG at 10:15 PM, no STEMI. MDM Narrative Medical Decision Narrative: 62-year-old female history of hypertension, hyperlipidemia, CAD, unprovoked DVT presenting with exertional shortness of breath. She states that this is been going on on and off for about a week. Most recent episode started this afternoon. It is exertional associated with chest pressure that substernal and does not radiate. Pressure made better with rest. She states that she did have 1 episode of vomiting. Denies diaphoresis, syncopal episodes, neurologic deficits, or any other concerns. History was obtained via conversation with patient. On arrival, patient hemodynamically stable, alert, oriented x4, appropriate, GCS 15, moving all extremities spontaneously, pupils equal and reactive to light. Full physical exam performed and significant for well-appearing woman in no acute distress. Lungs are clear to auscultation bilaterally. Patient does have right upper sternal border murmur that radiates to her carotids. Pulses equal and symmetric. In no acute distress, hypertensive, nontachycardic, saturating appropriately on room air.. Differential includes microvascular coronary artery disease, CHF, ACS, DC, coronary artery dissection, pneumothorax, PE, dissection, pericarditis, myocarditis, pneumothorax, aortic aneurysm, pneumonia, bronchitis, among others. Patient was given 324 mg for symptomatic management and correction of underlying abnormalities. Workup independently interpreted and significant for mild leukocytosis 12.7, nonactionable chemistry or CBC overall. LFTs normal. Initial troponin undetectable and BNP negative. Chest x-ray with no acute cardiopulmonary airspace disease. See radiology read for full review of final results. Independent interpretation of EKG shows sinus rhythm 96 beats a minute without ST or T wave changes concerning for acute ischemia. MN, QRS, QT intervals within normal limits. Patient placed on continuous cardiac monitoring and continuous pulse ox with initial blood pressure 144/66, heart rate 84, saturation 95. Heart score 5. Patient's presentation is concerning for anginal equivalent. Given heart score 5 and concern for cardiac chest pressure, patient likely to be candidate for admission and further workup versus close outpatient follow-up. Prior to final troponin and reevaluation, candidate for oncoming physician. Matilda Guan MD: D-dimer within normal limits so unlikely to have a PE explaining her symptoms. Troponin remained within normal limits. Given patient's concerning symptoms and comorbidities and age, consulted cardiology and had interactive discussion with them and Dr. Mar recommended admission with possible cardiac catheterization in the morning. Consulted hospital medicine who agreed to admit the patient. She remained hemodynamically stable until time of admission. She was able to ambulate well in the emergency department while remaining stable though did report some additional episodes of chest pain in the ED while at rest.
[2023-05-22 23:06] LABS: Troponin I < 0.01 ng/ml (0.00-0.034)
[2023-05-22 23:15] LABS: D-Dimer 0.48 ug/mL (0.0-0.5)
[2023-05-22 23:31] VITALS: BP 126/55; PULSE 89; RESP 17; O2SAT 98
[2023-05-23] VITALS (16 sets, daily range): BP systolic 110–138; BP diastolic 55–73; PULSE 60–85; RESP 16–20; TEMP 36.4–36.8; O2SAT 93–99; BMI 38.2
[2023-05-23 01:22] LABS: Troponin I < 0.01 ng/ml (0.00-0.034)
--- NOTE | 2023-05-23 01:25 | PC.NURSE ---
paged dr martinez
--- NOTE | 2023-05-23 01:29 | PC.NURSE ---
on phone with juan
--- NOTE | 2023-05-23 01:29 | PC.NURSE ---
on phone with hospitalist
--- NOTE | 2023-05-23 01:32 | PC.NURSE ---
notified house calls nurse practitioner of admission
--- NOTE | 2023-05-23 01:42 | EXP.HP ---
History of Present Illness *Admission Date: 05/23/23 *Reason for visit:: Angina *History of present illness: 62 year old female presented to [facility] ED for c/o SOB and chest pain for the past week. Pain is worse with exertion and relieved with rest. PMHX of htn, hld, anxiety, depression and cad. Her ED workup revealed a leukocytosis of 12.7. Her D-dimer, troponins, and BNP are WNL. Her chest xray reveals no cardiomegaly, consolidation, or pleural effusions. Her EKG demonstrates sinus rhythm without ST elevation. The ED physician consulted Cardiology who recommended inpatient admission for further cardiac workup. The ED physician consulted the hospitalist team for further medical management. I admitted the pt to the medical surgical floor. I will place a consult for cardiology. The pt will be placed on the cardiac monitored and receive an echo in the morning. [facility] Disclaimer: The information contained in this section may have been updated after the patient was seen, as this information can be updated by other users. Medical History Abnormal stress test Angina, class III Anxiety Cancer Depression Dizziness Edema Ex-smoker Family history of coronary artery disease History of anemia HLD (hyperlipidemia) HTN (hypertension) Palpitations SOB (shortness of breath) Surgical History History of cholecystectomy Social History Smoking Status: Current every day smoker second hand exposure: No alcohol intake: never substance use type: denies use current occupational status: employed Travel in the last 8 weeks: None household members: family housing: house current occupational exposures/hazards: No caffeine: No Review of Systems *Cardiovascular Cardiovascular: Reports chest pain, Reports dyspnea and Reports dyspnea on exertion *Respiratory Respiratory: Reports dyspnea and Reports dyspnea on exertion Meds Home Medications and Allergies Home Medications Medication Instructions Recorded Confirmed Type estradiol 1 mg tablet 1 mg PO DAILY HORMONE REPLACEMENT 04/24/23 05/23/23 History omeprazole 40 mg capsule,delayed 40 mg PO DAILY GERD 04/24/23 05/23/23 History release New Prescriptions to Start Prescriptions: Allergies Allergy/AdvReac Type Severity Reaction Status Date / Time No Known Allergies Allergy Verified 04/29/23 11:43 Exam Data for Last 24 hours Vital signs and Labs for Last 24 Hours: Temp Pulse Resp BP Pulse Ox O2 Del Method 97.9 F 78 18 138/69 98 Room Air 05/23/23 01:31 05/23/23 01:31 05/23/23 01:31 05/23/23 01:31 05/23/23 01:31 05/23/23 01:31 Laboratory Results - last 24 hr 05/22/23 22:22: WBC 12.7 H, RBC 4.54, Hgb 13.9, Hct 42.9, MCV 94.5, MCH 30.6, MCHC 32.4, RDW 14.1, Plt Count 267, MPV 9.2, Neut % (Auto) 70.9, Lymph % (Auto) 21.4, [place] % (Auto) 4.7, Eos % (Auto) 2.4, Baso % (Auto) 0.5, Neut # (Auto) 9.0 H, Lymph # (Auto) 2.7, [place] # (Auto) 0.6, Eos # (Auto) 0.3, Baso # (Auto) 0.1, D-Dimer 0.48, Sodium 139, Potassium 3.5, Chloride 104, Carbon Dioxide 29, Anion Gap 9.5, BUN 19 H, Creatinine 0.80, Estimated Creat Clear 93, Estimated GFR 73, Est GFR ( Amer) 88, Glucose 142 H, Calcium 8.6, Total Bilirubin 0.4, AST 24, ALT 20, Alkaline Phosphatase 104, Troponin I < 0.01, NT-Pro-B Natriuret Pep 102, Total Protein 6.9, Albumin 4.0, Globulin 2.9, Albumin/Globulin Ratio 1.4 05/23/23 00:50: Troponin I < 0.01 I & O for Last 24 hours: Intake & Output 05/20/23 05/21/23 05/22/23 05/23/23 23:59 23:59 23:59 23:59 Weight 99.79 kg Constitutional Constitutional: no acute distress *Routine HEENT Exam Head: Present normocephalic Eye: Present EOMI ENT: Present mucous membranes moist *Routine Neck Exam Neck: Present full ROM *Routine Respiratory Exam Respiratory: Present symmetric chest movement *Routine Cardiovascular Exam Cardiovascular: Present RRR *Routine Abdominal Exam Abdominal: Present soft *Routine Rectal Exam Rectal:: deferred *Routine Genitalia Exam Genitalia:: deferred *Routine Extremities Exam Extremities: Present full ROM; Absent edema *Routine Skin Exam Skin: Present intact *Routine Neurological Exam Neurological: Present alert and oriented X3 Assessment and Plan *Assessment and plan (1) Chest pain: Status: Chronic Category: Medical Code(s): R07.9 - Chest pain, unspecified (2) HTN (hypertension): Status: Chronic Qualifiers: Hypertension type: essential hypertension Qualified Code(s): I10 - Essential (primary) hypertension Category: Medical Code(s): I10 - Essential (primary) hypertension (3) HLD (hyperlipidemia): Status: Acute Qualifiers: Hyperlipidemia type: mixed hyperlipidemia Qualified Code(s): E78.2 - Mixed hyperlipidemia Category: Medical Code(s): E78.5 - Hyperlipidemia, unspecified (4) Anxiety: Status: Acute Category: Medical Code(s): F41.9 - Anxiety disorder, unspecified (5) Depression: Status: Acute Category: Medical Code(s): F32.A - Depression, unspecified Plan 62 year old female presented to [facility] ED for c/o SOB and chest pain for the past week. Pain is worse with exertion and relieved with rest. PMHX of htn, hld, anxiety, depression and cad. Her ED workup revealed a leukocytosis of 12.7. Her D-dimer, troponins, and BNP are WNL. Her chest xray reveals no cardiomegaly, consolidation, or pleural effusions. Her EKG demonstrates sinus rhythm without ST elevation. The ED physician consulted Cardiology who recommended inpatient admission for further cardiac workup. The ED physician consulted the hospitalist team for further medical management. I admitted the pt to the medical surgical floor. I will place a consult for cardiology. The pt will be placed on the cardiac monitored and receive an echo in the morning. The pt reports that she used to see cardiology but stopped due to insurance reasons. She currently does not take medications for HTN or HLD. I will add on a lipid panel CHEST PAIN -D-dimer, troponins, and BNP are WNL -chest xray reviewed and reveals no cardiomegaly, consolidation, or pleural effusions -EKG demonstrates sinus rhythm without ST elevation -Cardiology consult, thanks for the help!! -echo - pending HTN HLD ANXIETY DEPRESSION -awaiting home med req -pt states she has not take medication for htn or hld due to insurance reasons FULL CODE NPO FOR CARDIOLOGY CONSULT DVT: HEPARIN SQ Attending attestation Patient was seen and evaluated at the bedside myself, agree with CASSANDRA note. await Cardiology evaluation
--- NOTE | 2023-05-23 01:54 | PC.NURSE ---
Report called to Jagruti BRENNER #[id number]
[2023-05-23 02:38] LABS: Cholesterol 183 mg/dl (140-200); HDL Cholesterol 46 mg/dl (40-60); Triglycerides 169 mg/dl (30-150); VLDL Cholesterol 34 mg/dL (0-40)
[2023-05-23] MEDS: MORPHINE 2MG/ML SYRINGE 2 MG IV ×2 (02:50→09:25)
[2023-05-23] MEDS: PANTOPRAZOLE 40MG VIAL 40 MG IV ×2 (02:50→21:55)
[2023-05-23] MEDS: ONDANSETRON 4MG/2ML VIAL 4 MG IV ×2 (02:50→09:25)
[2023-05-23 03:06] LABS: Direct LDL Cholesterol 87.96 mg/dL (100-129)
[2023-05-23] MEDS: ACETAMINOPHEN 325MG TAB 650 MG PO ×2 (06:22→15:42)
--- NOTE | 2023-05-23 06:46 | PC.NURSE ---
PT A/O X4. PT HAS C/O 1X OF MID STERNAL CHEST PRESSURE THAT RADIATES UP TO LEFT SIDE OF NECK AND TO LEFT ARM. RATED 6/10. MORPHINE ADMINISTERED AND PT STATED RELIEF WITH PAIN @ 2/10. PT ALSO C/O OF AN VALENTINE THIS AM AND TYLENOL WAS ADMINISTERED. VSS. CALL LIGHT WITHIN REACH. AT BEDSIDE
[2023-05-23 07:19] LABS: Basophils # 0.1 K/mm3 (0-0.2); Basophils % 0.5 % (0.1-2.0); Eosinophils # 0.3 K/mm3 (0.0-0.4); Eosinophils % 3.1 % (0.1-12.0); Hematocrit 38.2 % (37.0-47.0); Lymphocytes # 2.6 K/mm3 (0.7-4.5); Lymphocytes % 25.5 % (10-50); Mean Corpuscular HGB Conc 31.7 g/dL (31.8-35.4); Mean Corpuscular Volume 94.6 fl (81-99); Mean Platelet Volume 8.5 fl (7.4-10.4); Monocytes # 0.4 K/mm3 (0.1-1.0); Monocytes % 4.3 % (1.7-9.3); Neutrophils # 6.7 K/mm3 (1.8-7.8); Neutrophils % 66.5 % (37.0-80.0); Platelet Count 240 K/mm3 (142-424); Red Blood Count 4.03 M/mm3 (4.20-5.40); Red Cell Distribution Width 14.2 % (11.5-17.5); White Blood Count 10.1 K/mm3 (4.8-10.8)
[2023-05-23 07:34] LABS: Anion Gap 5.5 mEq/L (5-15); Blood Urea Nitrogen 16 mg/dl (7-17); Calcium 8.2 mg/dl (8.4-10.2); Carbon Dioxide 31 mmol/L (22.0-30.0); Chloride 106 mmol/L (98-107); Creatinine Clearance Estimated 101 mL/min (50-200); Estimated Glomerular Filt Rate 102 ml/min (>60); GFR (African American) 123 ML/MIN (>60); Glucose 88 mg/dl (74-100); Potassium 4.5 mmoL/L (3.5-5.1); Sodium 138 mmol/L (136-145)
[2023-05-23 07:49] LABS: Hemoglobin 12.1 g/dL (12.2-16.2)
[2023-05-23 08:42] LABS: Troponin I < 0.01 ng/ml (0.00-0.034)
[2023-05-23] MEDS: HEPARIN SODIUM 5,000 UNIT/ML VIAL 5000 UNIT SQ ×2 (09:23→21:55)
--- NOTE | 2023-05-23 19:07 | PC.NURSE ---
Patient a&ox4 vss and no c/o chest pain today.
[2023-05-24] VITALS: BP 126/65; PULSE 81; PULSE 86; RESP 16; TEMP 36.7; O2SAT 98
--- NOTE | 2023-05-24 01:56 | CA_ITS ---
APPROVED REPORT EXAM: Comprehensive 2D, Doppler, and color-flow Echocardiogram Pcat Instructor: Marline Molina CRT Ht: 5 ft 6 in Wt: 220lbs BSA: 2.08 BP: 120/82 mmHg Indications: Chest Pain, Shortness of Breath, Palpitations, Peripheral Edema, CAD, Hyperlipidemia, Hypertension/HDD, non-compliant w meds 2D Dimensions LA Volume 49.00 mL LA Volume Index 23.00 mL/m2 (M/F) 16-34 M-Mode Dimensions RVDd 2.84 cm (0.9-2.6) LA Diam 3.87 cm (1.9-4.0) LVDd 3.75 cm (3.5-5.7) LVDs 2.50 cm (3.5-5.7) IVSd 1.56 cm (0.6-1.1) PWd 1.13 cm (0.6-1.1) EF (Teich) 62.80% FS 33.30% EDV (Teich) 60.00 mL TAPSE 1.49 (<1.7) ESV (Teich) 22.30 mL LV Diastology E Decel Time 240 (160-240 msec) E/A Ratio 1.14 MED A' 8.40 cm/s LAT A' 10.20 cm/s Aortic Valve AO Peak GR. 10.20 mmHg Mitral Valve MV A Velocity 73.0 (40-130 cm/s) E/A Ratio 1.14 Pulmonary Valve PV Peak Velocity 135.0 (50-150 cm/s) Tricuspid Valve TR P. Velocity 245.00 cm/s RAP Estimate 10.00 mmHg RVSP 33.90 mmHg Left Ventricle The left ventricle is normal size. The left ventricular systolic function is normal. The left ventricular ejection fraction is within the normal range. There is increased LV wall thickness. There is normal LV segmental wall motion. The left ventricular diastolic function is normal. LVEF is 55%. Right Ventricle The right ventricle is normal size. The right ventricular systolic function is normal. Atria The left atrium size is normal. The right atrium size is normal. There is no Doppler evidence of interatrial shunt. Aortic Valve The aortic valve is mildly thickened. There is no aortic valvular stenosis. Trace aortic regurgitation. Mitral Valve The mitral valve leaflets are mildly thickened. No evidence of mitral valve stenosis. Mild mitral regurgitation. Tricuspid Valve The tricuspid valve leaflets are thin and pliable. Trace tricuspid regurgitation. There is insufficient TR jet to estimate RVSP. Pulmonic Valve The pulmonary valve is normal in structure. Mild pulmonic regurgitation. Great Vessels The aortic root is normal in size. The ascending aorta is normal in size. IVC is normal in size and collapses >50% with inspiration. Pericardium There is no pericardial effusion. Other Information Study Quality: Fair Conclusion Normal biventricular systolic function. Mild MR, mild PI. Electronically signed by : Ricarda Perez MD 05/25/2023 10:53:11
[2023-05-24 04:00] VITALS: BP 146/74; PULSE 63; PULSE 64; RESP 16; TEMP 36.8; O2SAT 97; BMI 38.2
[2023-05-24] MEDS: ACETAMINOPHEN 325MG TAB 650 MG PO ×2 (05:04→11:37)
[2023-05-24 08:00] VITALS: BP 126/99; PULSE 64; PULSE 73; RESP 16; TEMP 36.6; O2SAT 96
[2023-05-24] MEDS: HEPARIN SODIUM 5,000 UNIT/ML VIAL 5000 UNIT SQ (09:39)
[2023-05-24 12:00] VITALS: BP 147/78; PULSE 70; PULSE 73; RESP 18; TEMP 36.7; O2SAT 97
[2023-05-24 16:00] VITALS: BP 135/78; PULSE 69; RESP 18; TEMP 36.6; O2SAT 97
--- NOTE | 2023-05-24 16:22 | EXP.CARD.CON ---
History of Present Illness History of Present Illness Consult date: 05/24/23 Requesting physician: Chey Remy Consult reason: chest pain Chief complaint: chest pain History of present illness: This is a 62-year-old white female who presented to the emergency department complaints of chest pain and shortness of breath. The patient states that she had been having symptoms for approximately a week. She states that she has been having pain and pressure in her chest that radiates to her neck and left arm. She states that her chest becomes tight and her arm and neck became heavy. She states that she gets diaphoretic, short of breath and has had nausea with the chest pain. She did have an episode of vomiting. She rates this an 8 out of 10 in intensity. The episodes last anywhere from 30 minutes to 2 hours. Since being in the hospital she states that she has had improvement in her chest pain and pressure. The patient has a history of normal coronary arteries in 2019. She did rule out for an SC. She states that her symptoms have resolved at this time. She denies any fever, chills, diarrhea, PND orthopnea. She denies any lower extremity edema. [facility] Disclaimer: The information contained in this section may have been updated after the patient was seen, as this information can be updated by other users. Medical History (Updated 05/24/23 @ 16:25 by Velma Sinclair APRN) Abnormal stress test Angina, class III Anxiety Cancer Depression Dizziness Edema Ex-smoker Family history of coronary artery disease History of anemia HLD (hyperlipidemia) HTN (hypertension) Palpitations SOB (shortness of breath) Surgical History History of cholecystectomy Social History Smoking Status: Current every day smoker second hand exposure: No alcohol intake: never substance use type: denies use current occupational status: employed Travel in the last 8 weeks: None household members: family housing: house current occupational exposures/hazards: No caffeine: No Review of Systems Review of Systems Review of systems:: pertinent systems reviewed and negative unless documented below Constitutional Constitutional: Reports system reviewed and no additional complaints, except as documented and Reports lethargy Eyes Eyes: Reports system reviewed and no additional complaints, except as documented ENT Ears, Nose, Mouth, and Throat: Reports system reviewed and no additional complaints, except as documented *Cardiovascular Cardiovascular: Reports system reviewed and no additional complaints, except as documented, Reports chest pain, Reports chest pain at rest, Reports chest pain with activity, Reports diaphoresis, Reports dyspnea, Reports dyspnea on exertion, Denies leg edema and Reports palpitations *Respiratory Respiratory: Reports system reviewed and no additional complaints, except as documented, Reports dyspnea and Reports dyspnea on exertion *Gastrointestinal Gastrointestinal: Reports system reviewed and no additional complaints, except as documented *Musculoskeletal Musculoskeletal: Reports system reviewed and no additional complaints, except as documented Integumentary/Breasts Skin/Breast: Reports system reviewed and no additional complaints, except as documented *Neurologic Neurologic: Reports system reviewed and no additional complaints, except as documented Psychiatric Psychiatric: Reports system reviewed and no additional complaints, except as documented Endocrine Endocrine: Reports system reviewed and no additional complaints, except as documented and Reports palpitations Hematologic/Lymphatic Hematologic/Lymphatic: Reports system reviewed and no additional complaints, except as documented Allergic/Immunologic Allergic/Immunologic: Reports system reviewed and no additional complaints, except as documented Exam Data for Last 24 hours Vital signs and Labs for Last 24 Hours: Temp Pulse Resp BP Pulse Ox O2 Del Method 98 F 69 18 135/78 97 Room Air 05/24/23 16:00 05/24/23 16:00 05/24/23 16:00 05/24/23 16:00 05/24/23 16:00 05/24/23 16:00 I & O for Last 24 hours: Intake & Output 05/21/23 05/22/23 05/23/23 05/24/23 23:59 23:59 23:59 23:59 Intake Total 480 / 960 1560 / 1560 Output Total 0 / 0 0 / 0 Balance 480 / 960 1560 / 1560 Weight 220 lb 238 lb 238 lb Constitutional Constitutional: no acute distress and obese *Routine HEENT Exam Head: Present normocephalic and atraumatic ENT: Present mucous membranes moist *Routine Neck Exam Neck: Present supple, full ROM and normal carotid upstroke; Absent JVD, carotid bruit or lymphadenopathy *Routine Respiratory Exam Respiratory: Present CTA bilaterally, normal respiratory effort, able to speak in complete sentences and symmetric chest movement *Routine Cardiovascular Exam Cardiovascular: Present RRR, Normal S1 and Normal S2; Absent murmur or gallop *Routine Abdominal Exam Abdominal: Present soft and normoactive bowel sounds; Absent tenderness, distended or organomegaly *Routine Extremities Exam Extremities: Present full ROM, pulses intact and normal capillary refill; Absent cyanosis, clubbing or edema *Routine Skin Exam Skin: Present intact and warm; Absent erythema *Routine Neurological Exam Neurological: Present alert, oriented X3 and CN II-XII intact; Absent sensory deficit or motor deficit Routine Psychiatric Exam Psychiatric: Present normal affect Meds Home Medications and Allergies Home Medications Medication Instructions Recorded Confirmed Type estradiol 1 mg tablet 1 mg PO DAILY HORMONE REPLACEMENT 04/24/23 05/23/23 History omeprazole 40 mg capsule,delayed 40 mg PO DAILY GERD 04/24/23 05/23/23 History release New Prescriptions to Start Prescriptions: Allergies Allergy/AdvReac Type Severity Reaction Status Date / Time No Known Allergies Allergy Verified 04/29/23 11:43 Assessment and Plan *Assessment and plan (1) Chest pain: Status: Chronic Qualifiers: Chest pain type: unspecified Qualified Code(s): R07.9 - Chest pain, unspecified Category: Medical Code(s): R07.9 - Chest pain, unspecified (2) HLD (hyperlipidemia): Status: Acute Qualifiers: Hyperlipidemia type: mixed hyperlipidemia Qualified Code(s): E78.2 - Mixed hyperlipidemia Category: Medical Code(s): E78.5 - Hyperlipidemia, unspecified (3) HTN (hypertension): Status: Chronic Qualifiers: Hypertension type: essential hypertension Qualified Code(s): I10 - Essential (primary) hypertension Category: Medical Code(s): I10 - Essential (primary) hypertension (4) SOB (shortness of breath): Status: Chronic Category: Medical Code(s): R06.02 - Shortness of breath Plan Plan: 1. This is a 62-year-old female who was admitted to the hospital with chest pain. She ruled out for an SC. The patient has a history of normal coronary arteries in 2019. No plans for invasive left cardiac catheterization at this time. 2. Echocardiogram shows normal ejection fraction and no significant valve issues. 3. Her blood pressure is well-controlled. 4. Her LDL goal is less than 100. 5. Recommend aspirin 81 mg daily. 6. We do recommend a daily PPI. 7. The patient is stable for discharge home today from a cardiac standpoint. She will need to follow-up in cardiology clinic in 1 to 2 weeks on an outpatient basis for outpatient ischemic evaluation. Thank you for the opportunity to participate in the care of this patient. All recommendations and orders are per Dr. Perez.
--- NOTE | 2023-05-24 17:00 | EXP.DC.SUM ---
General Admission date:: 05/23/23 Discharge date: 05/24/23 HPI HPI HPI: 62 year old female presented to [facility] ED for c/o SOB and chest pain for the past week. Pain is worse with exertion and relieved with rest. PMHX of htn, hld, anxiety, depression and cad. Her ED workup revealed a leukocytosis of 12.7. Her D-dimer, troponins, and BNP are WNL. Her chest xray reveals no cardiomegaly, consolidation, or pleural effusions. Her EKG demonstrates sinus rhythm without ST elevation. The ED physician consulted Cardiology who recommended inpatient admission for further cardiac workup. The ED physician consulted the hospitalist team for further medical management. I admitted the pt to the medical surgical floor. I will place a consult for cardiology. The pt will be placed on the cardiac monitored and receive an echo in the morning. Hospital Course Hospital Course Hospital Course: 62 year old female presented to [facility] ED for c/o SOB and chest pain for the past week. Pain is worse with exertion and relieved with rest. PMHX of htn, hld, anxiety, depression and cad. Her ED workup revealed a leukocytosis of 12.7. Her D-dimer, troponins, and BNP are WNL. Her chest xray reveals no cardiomegaly, consolidation, or pleural effusions. Her EKG demonstrates sinus rhythm without ST elevation. The ED physician consulted Cardiology who recommended inpatient admission for further cardiac workup. The ED physician consulted the hospitalist team for further medical management. I admitted the pt to the medical surgical floor. I will place a consult for cardiology. The pt will be placed on the cardiac monitored and receive an echo in the morning. The pt reports that she used to see cardiology but stopped due to insurance reasons. She currently does not take medications for HTN or HLD. I will add on a lipid panel CHEST PAIN - patient evaluated by cardiology, recommended starting on ASA and DC, f/u as OP HTN HLD ANXIETY DEPRESSION Exam Data for Last 24 hours Vital signs and Labs for Last 24 Hours: Temp Pulse Resp BP Pulse Ox O2 Del Method 98 F 69 18 135/78 97 Room Air 05/24/23 16:00 05/24/23 16:00 05/24/23 16:00 05/24/23 16:00 05/24/23 16:00 05/24/23 16:00 I & O for Last 24 hours: Intake & Output 03/01/24 03/02/24 03/03/24 03/04/24 23:59 23:59 23:59 23:59 Intake Total 480 / 960 1560 / 1560 Output Total 0 / 0 0 / 0 Balance 480 / 960 1560 / 1560 Weight 99.79 kg 107.955 kg 107.955 kg Constitutional Constitutional: no acute distress *Routine HEENT Exam Head: Present normocephalic Eye: Present EOMI and PERRL ENT: Present mucous membranes moist *Routine Neck Exam Neck: Present supple; Absent lymphadenopathy *Routine Respiratory Exam Respiratory: Present CTA bilaterally *Routine Cardiovascular Exam Cardiovascular: Present RRR *Routine Abdominal Exam Abdominal: Present soft and normoactive bowel sounds; Absent tenderness *Routine Extremities Exam Extremities: Absent cyanosis, clubbing or edema *Routine Skin Exam Skin: Present warm; Absent rash *Routine Neurological Exam Neurological: Present alert and oriented X3 DS: Diagnosis Discharge Diagnosis (1) Chest pain: Status: Chronic Code(s): R07.9 - Chest pain, unspecified Qualifiers: Chest pain type: unspecified Qualified Code(s): R07.9 - Chest pain, unspecified (2) HLD (hyperlipidemia): Status: Acute Code(s): E78.5 - Hyperlipidemia, unspecified Qualifiers: Hyperlipidemia type: mixed hyperlipidemia Qualified Code(s): E78.2 - Mixed hyperlipidemia (3) HTN (hypertension): Status: Chronic Code(s): I10 - Essential (primary) hypertension Qualifiers: Hypertension type: essential hypertension Qualified Code(s): I10 - Essential (primary) hypertension (4) SOB (shortness of breath): Status: Chronic Code(s): R06.02 - Shortness of breath Meds Home Medications and Allergies Home Medications Medication Instructions Recorded Confirmed Type estradiol 1 mg tablet 1 mg PO DAILY HORMONE REPLACEMENT 04/24/23 05/23/23 History omeprazole 40 mg capsule,delayed 40 mg PO DAILY GERD 04/24/23 05/23/23 History release aspirin 81 mg tablet,delayed 81 mg PO DAILY 30 days #30 tabs 05/24/23 Rx release New Prescriptions to Start Prescriptions: aspirin Chey Remy Allergies Allergy/AdvReac Type Severity Reaction Status Date / Time No Known Allergies Allergy Verified 04/29/23 11:43 Discharge Plan Disposition Patient Disposition: Home, Self-Care Condition: Good Follow up Plan Follow up with: Narciso Mar MD [Staff Physician] - 06/08/23 1:30 pm Sebas Campbell MD [Primary Care Provider] - 05/31/23 10:30 am Prescriptions/Medication Reconciliation: New aspirin 81 mg Tablet,Delayed Release (Dr/Ec) 81 mg PO DAILY 30 Days Qty: 30 0RF Continued omeprazole 40 mg capsule,delayed release(DR/EC) 40 mg PO DAILY estradiol 1 mg tablet 1 mg PO DAILY Problem Reconciliation Problems Reviewed?: Yes Patient Discharge Instructions ACTIVITY: Ambulate as tolerated DIET: continue same diet Patient Instructions: Angina, DI for Angina Providers Primary Care Provider: Sebas Campbell Admit Provider: Chey Remy Attending Provider: Chey Remy
== END 2023-05-24 17:28 | disposition home or self-care (01) ==
LOC: ER 05-23 01:27 → 2ND 05-23 01:35
PROVIDERS: Nurse Practitioner Critical Care Medicine; Admitting Provider Internal Medicine; Emergency Provider Emergency Medicine; PCP Internal Medicine Adolescent Medicine; Visit Provider Internal Medicine
DX: R07.9 Chest pain, unspecified (principal); I10 Essential (primary) hypertension; E78.2 Mixed hyperlipidemia; F41.9 Anxiety disorder, unspecified; F32.A Depression, unspecified; R06.02 Shortness of breath; I25.10 Atherosclerotic heart disease of native coronary artery without angina pectoris; Z87.891 Personal history of nicotine dependence
CPT/HCPCS: 36415; 71045; 80048; 80053; 80061; 83880; 84484; 85025; 85378; 93005; 93306; 99285; G0378; J2405

== ENCOUNTER 2023-06-03 07:35 | Outpatient (CLI) | payer MEDICARE, MEDICAID, SELFPAY ==
--- NOTE | 2023-06-03 | CA_ITS ---
APPROVED REPORT Exam: Pharmacologic Technologist: Ibis Atkinson, Ht: 5 ft 6 in Wt: 238 lbs BSA: 2.15 m2 HR: 65 bpm BP: 129/61 mmHg Rhythm: NSR Indications: CP Medical History Medications: Omeprazole,,,,, Aspirin,,,,, Estradiol,,,,, Stress Test Details Test: LEXISCAN Reason for pharmacologic stress test: physical limitation. HR Resting HR: 71 bpm Max Heart Rate (APMHR): 159 bpm Max HR Achieved: 97 bpm Target HR (85% APMHR): 135 bpm % of APMHR: 61 Recovery HR: 78 bpm BP Resting BP: 129/61 mmHg Max BP: 141/67 mmHg Recovery BP: 134.0/73.0 mmHg ECG Resting ECG: NSR, nonspecific T wave abns. Stress ECG: No significant ST changes Arrhythmia: None Clinical Exercise duration: 04:04 min Highest Stage Achieved: Exercise capacity: 1.0 METs Stress ECG Conclusion Symptoms: Mild chest, head, stomach discomfort, mild SOA. Arrhythmias/Ectopy: None. ST-T Changes: No significant ST changes. Conclusion: Unremarkable Lexiscan stress. Myoview images reported separately. Test Summary REST . . . . . . . Resting REST 02:25 . . 71 . 129/ 61 . . Stage 1 01:00 . . 91 . . . . Stage 2 01:00 . . 92 . . . . Stage 3 01:00 . . 84 . 137/ 72 . . Stage 4 01:00 . . 83 . 141/ 67 . . Stage 4 01:04 . . 82 . 141/ 67 . Stop exercise at 04:04 RECOVERY 01:00 . . 85 . . . . RECOVERY 02:00 . . 83 . . . . RECOVERY 03:00 . . 79 . 128/ 67 . . RECOVERY 03:40 . . 79 . 134/ 73 . . Electronically signed by : Ricarda Perez MD 06/06/2023 00:56:18
--- NOTE | 2023-06-03 07:41 | NM_ITS ---
APPROVED REPORT Exam: Nuclear Stress Test Indication: dizziness..fatigue..palpitations..soa..chest pain Patient Location: Outpatient Stress Tech: Ibis Mccrary [place] Tech:SALVADOR Stone RT(R)(N) Ht: 5 ft 6 in Wt: 230 lbs Bra Size: 38c HR: 71 bpm BP: 129/61 mmHg BSA: 2.12 m2 TID: 1.27 BMI: 37.1 History: dizziness..fatigue..palpitations..soa..chest pain Procedure: Patient received 0.4 mg of intravenous Lexiscan, resting heart rate 71 bpm, resting blood pressure 129/61 mmHg, with Lexiscan maximum heart rate achieved was 97 bpm which is 85 % of the maximum predicted heart rate and blood pressure was 141/67 mmHg. With Lexiscan, patient denied any complaint of chest pain. Cardiac Stress and Resting SPECT Images: Cardiac Stress and Resting SPECT images were obtained using technetium 99m Myoview 31.2 mCi stress and 10.12 mCi at rest. Resting and stress imaging in supine position demonstrate a medium sized, moderate, fixed perfusion defect in the basal to mid anterior and anteroseptal LV silva. This is no longer visualized with prone stress imaging. Findings are suggestive of soft tissue attenuation. There is also increased transient ischemic dilatation ratio (TID 1.27), suggestive of possible multivessel disease or balanced ischemia. Gated imaging demonstrates low normal global and regional LV systolic function. LVEF is calculated at 53%. Conclusion: Soft tissue attenuation is present. No definite evidence of focal fixed or reversible perfusion defects. However, there is increased transient ischemic dilatation ratio (TID 1.27), suggestive of possible multivessel disease or balanced ischemia. Gated imaging demonstrates low normal global and regional LV systolic function. LVEF is calculated at 53%. Electronically signed by : Ricarda Perez MD 06/06/2023 00:59:04
[2023-06-03] MEDS: ISOTOPE MYOVIEW (PER STUDY) 1 DOSE IV (09:28)
[2023-06-03] MEDS: SODIUM CHLORIDE 0.9% 10ML SYR (RAD ONLY) 10 ML IV ×2 (09:28)
[2023-06-03] MEDS: REGADENOSON 0.4MG/5ML SYRINGE 0.400000000000000022 MG IV (09:28)
== END 2023-06-03 23:59 ==
LOC: RAD 07:36
PROVIDERS: PCP Nurse Practitioner Family; Visit Provider Nurse Practitioner Family
DX: R07.2 Precordial pain (principal)
CPT/HCPCS: 78452; 93017; 93018; A9502; J2785

== ENCOUNTER 2023-06-27 21:12 | Emergency (ER) | payer MEDICARE, MEDICAID, SELFPAY ==
[2023-06-27 21:14] VITALS: BP 151/76; PULSE 85; RESP 18; TEMP 36.8; O2SAT 95; BMI 35.5
--- NOTE | 2023-06-27 21:16 | ED_ITS ---
<Statement entered by Britney Lopez MD - 06/27/23 22:41> I was consulted by the CASSANDRA, and we discussed the complexity of the problems being addressed. I approved the treatment and management plan for this patient's care in the emergency department, thus performing a substantive portion of the medical decision making. Britney Lopez MD, [place], FACEP Discharge Plan Disposition Patient Disposition: Home, Self-Care Condition: Good Prescriptions Prescriptions: New hydrocodone-acetaminophen 5-325 mg tablet 1 tab PO Q6H PRN (Reason: pain) 3 Days Qty: 12 0RF No Action montelukast 10 mg tablet 10 mg PO DAILY omeprazole 40 mg capsule,delayed release(DR/EC) 40 mg PO DAILY estradiol 1 mg tablet 1 mg PO DAILY aspirin 81 mg Tablet,Delayed Release (Dr/Ec) 81 mg PO DAILY 30 Days Qty: 30 0RF Referrals Follow up/Referrals: Soraida Coughlin APRN [Primary Care Provider] - See instructions Isadora Lindsay DPM [Staff Physician] - See instructions Clinical Impressions Clinical Impression: Closed nondisplaced fracture of first right metatarsal bone Qualifiers: Encounter type: initial encounter Qualified Code(s): S92.314A - Nondisplaced fracture of first metatarsal bone, right foot, initial encounter for closed fracture Discharge ED Provider: Britney Lopez General Adult HPI General Chief complaint: Extremity Injury, Lower Stated complaint: [id number]@1330 RT ankle inj Time Seen by Provider: 06/27/23 21:16 History of Present Illness HPI narrative: Patient presents for evaluation of right ankle and foot pain. Patient reports that she was chasing her child to avoid her running to a pack of dogs that she was not familiar with. She does not recall that she actually injured her foot however she woke up from a nap fairly shortly after and was unable to bear we ight without pain. Related Data Home Medications Medication Instructions Recorded Confirmed estradiol 1 mg tablet 1 mg PO DAILY HORMONE REPLACEMENT 04/24/23 05/23/23 omeprazole 40 mg capsule,delayed 40 mg PO DAILY GERD 04/24/23 05/23/23 release montelukast 10 mg tablet 10 mg PO DAILY 06/16/23 06/16/23 Previous Rx's Medication Instructions Recorded aspirin 81 mg tablet,delayed 81 mg PO DAILY 30 days #30 tabs 05/24/23 release hydrocodone 5 mg-acetaminophen 325 1 tab PO Q6H PRN pain 3 days #12 06/27/23 mg tablet tabs Allergies Allergy/AdvReac Type Severity Reaction Status Date / Time No Known Allergies Allergy Verified 06/27/23 21:27 [facility] Disclaimer: The information contained in this section may have been updated after the patient was seen, as this information can be updated by other users. Medical History (Updated 06/27/23 @ 22:17 by CHASITY Mock) Abnormal nuclear cardiac imaging test History of anemia Depression Anxiety Cancer Palpitations Angina, class III Ex-smoker HLD (hyperlipidemia) Family history of coronary artery disease Edema Dizziness SOB (shortness of breath) HTN (hypertension) Abnormal stress test Surgical History History of cholecystectomy Social History Smoking Status: Current every day smoker second hand exposure: No alcohol intake: never substance use type: denies use current occupational status: employed Travel in the last 8 weeks: None household members: family housing: house current occupational exposures/hazards: No caffeine: No ROS Obtained: Yes Systems reviewed as appropriate & no additional complaints except as documented Physical Exam General General appearance: alert and in no apparent distress Respiratory Respiratory exam: Present normal lung sounds bilaterally; Absent respiratory distress Cardiovascular Cardiovascular exam: Present regular rate and normal rhythm Neurological Exam Neurological exam: Present alert and oriented X3 Other Other exam information: 3 unaffected remedies are intact also to exam with full range of motion. The right lower extremity is tender to palpation at the medial and lateral malleolus without obvious deformity, tenderness to palpation across the instep and bridge of the foot again without deformity noted, and tender to palpation on the p lantar surface of the arch again without evidence of bony deformity. There is no evidence of ecchymosis edema or erythema currently. Patient is neurovascularly intact distally. Medical Decision Making Medical Records Medical records reviewed: Yes I reviewed the patient's medical records. Tam Inquiry Pt receiving controlled substance: No Vital Signs: 06/27/23 21:14 06/27/23 21:19 06/27/23 21:30 Temperature 98.3 F Temperature Source Oral Pulse Rate 78 78 Pulse Rate [Left Radial] 85 Respiratory Rate 18 Blood Pressure 151/76 H 137/85 Blood Pressure [Right Arm] 151/76 H Blood Pressure Mean 105 110 Blood Pressure Mean [Right Arm] 101 Blood Pressure Source [Right Arm] Automatic Cuff Blood Pressure Position [Right Arm] Sitting 02 Sat by Pulse Oximetry 95 95 95 Oxygen Delivery Method Room Air Orders (Tests/Meds): ED MEDICATIONS Discontinued Medications Generic Name Dose Route Start Last Admin Trade Name Danii PRN Reason Stop Dose Admin Acetaminophen 1,000 mg 06/27/23 21:27 06/27/23 21:44 Acetaminophen 500mg Tab PO 06/27/23 21:28 1,000 mg ONCE ONE Administration Ketorolac Tromethamine 30 mg 06/27/23 21:27 06/27/23 21:44 Ketorolac 30mg/Ml Vial IM 06/27/23 21:28 30 mg ONCE ONE Administration Lidocaine/Epinephrine 5 ml 06/27/23 21:59 Lidocaine 1% W/Epi 1:100,000 20ml Vial SQ 06/27/23 22:00 ONCE ONE ORDERS Category Date Time Status Ankle XR -Right minimum 3 Views [XR ankle RT min 3V] Exams 06/27/23 21:27 Taken Stat Foot XR right 2 views [XR foot RT 2V] Stat Exams 06/27/23 21:27 Taken Foot XR right minimum 3 views [XR foot RT min 3V] Stat Exams 06/27/23 22:23 Ordered Medical Decision Narrative: In summary patient is a 62-year-old female who presents to the emergency department for evaluation of right ankle and foot pain. Patient is hemodynamically stable upon arrival, and afebrile. Physical exam is remarkable for tender ankle and forefoot of the right lower extremity without evidence of obvious edema erythema or deformity noted. Patient is neurovascular intact distally.. Differential diagnosis includes sprain versus fracture of the right foot versus ankle. Initial workup will be conducted with plain film x-rays.. Initial interventions include acetaminophen and Toradol. Initial workup reviewed by me shows a distal right first metatarsal fracture that appears to be angulated and displaced. Radiologist read pending. Discussed patient management initially with orthopedics who recommended reduction posterior splint and referral to podiatry.. Patient post in a posterior splint and x-rays taken after reduction showed good alignment. Subsequently patient is appropriate for discharge with close follow-up with podiatry and nonweightbearing till evaluated. Critical Care Critical Care Time Critical Care Time: No
[2023-06-27 21:19] VITALS: BP 151/76; PULSE 78; O2SAT 95
--- NOTE | 2023-06-27 21:27 | XR_ITS ---
PROCEDURE INFORMATION: Exam: XR Right Ankle Exam date and time: 06/27/2023 9:28 PM Age: 62 years old Clinical indication: Pain; Ankle; Right; Additional info: Pain with walking, trauma TECHNIQUE: Imaging protocol: Radiologic exam of the right ankle. Views: 3 or more views. COMPARISON: CR XR FOOT RT 2V 06/27/2023 9:25 PM FINDINGS: Bones/joints: No acute fracture or malalignment. Mild chronic avulsive changes to the medial malleolus. Minimal calcaneal enthesopathy. Soft tissues: Normal. IMPRESSION: No acute osseous findings.
--- NOTE | 2023-06-27 21:27 | XR_ITS ---
PROCEDURE INFORMATION: Exam: XR Right Foot Exam date and time: 06/27/2023 9:25 PM Age: 62 years old Clinical indication: Pain; Foot; Right; Additional info: Pain with walking, trauma TECHNIQUE: Imaging protocol: Radiologic exam of the right foot. Views: 1 or 2 views. COMPARISON: CR XR KNEE RT 3V 06/23/2021 3:57 PM FINDINGS: Bones/joints: Postsurgical changes of bunionectomy and tailor's bunion surgery. No acute fracture malalignment. Minimal calcaneal enthesopathy. Soft tissues: Normal. IMPRESSION: No acute osseous findings.
[2023-06-27 21:30] VITALS: BP 137/85; PULSE 78; O2SAT 95
[2023-06-27] MEDS: KETOROLAC 30MG/ML VIAL 30 MG IM (21:44)
[2023-06-27] MEDS: ACETAMINOPHEN 500MG TAB 1000 MG PO (21:44)
[2023-06-27] MEDS: LIDOCAINE 1% W/EPI 1:100,000 20ML VIAL 5 ML SQ (22:10)
--- NOTE | 2023-06-27 22:23 | XR_ITS ---
PROCEDURE INFORMATION: Exam: XR Right Foot Exam date and time: 06/27/2023 10:24 PM Age: 62 years old Clinical indication: Abnormal findings; Abnormal imaging study; Post reduction; Additional info: Post fracture reduction TECHNIQUE: Imaging protocol: Radiologic exam of the right foot. Views: 3 or more views. COMPARISON: CR XR FOOT RT 2V 06/27/2023 9:25 PM FINDINGS: Bones/joints: Interval splinting of the right foot. No definable acute fracture or malalignment. Soft tissues: Normal. IMPRESSION: Interval splinting of the right foot. No identifiable acute osseous findings.
[2023-06-27] MEDS: OXYCODONE 5MG IMMEDIATE RELEASE TABLET 5 MG PO (22:28)
[2023-06-27 22:48] VITALS: BP 146/74; PULSE 78; RESP 18; TEMP 36.7; O2SAT 98
== END 2023-06-27 22:49 | disposition home or self-care (01) ==
PROVIDERS: Emergency Provider Student in an Organized Health Care Education/Training Program; PCP Nurse Practitioner Family
DX: S92.314A Nondisplaced fracture of first metatarsal bone, right foot, initial encounter for closed fracture (principal); M25.571 Pain in right ankle and joints of right foot; F17.210 Nicotine dependence, cigarettes, uncomplicated; I10 Essential (primary) hypertension; E78.5 Hyperlipidemia, unspecified; I20.9 Angina pectoris, unspecified; X50.1XXA Overexertion from prolonged static or awkward postures, initial encounter
CPT/HCPCS: 29515; 73610; 73620; 73630; 96372; 99284

== ENCOUNTER 2023-07-02 09:06 | Outpatient (CLI) | payer MEDICARE, MEDICAID, SELFPAY ==
--- NOTE | 2023-07-02 09:07 | CT_ITS ---
APPROVED REPORT Manager Civil: CLINICAL INDICATION Transient ischemic dilatation (TID) on nuclear stress testing TECHNIQUE Image Acquisition: A 128 slice MDCT scanner (Zirtuala View) was used for data acquisition. A noncontrast coronary calcium scan was performed. A CT attenuation threshold of 130 Hounsfield units (HU) was used for the detection of calcium in contiguous voxels of 1 sq mm in area to be counted as individual lesions. Bolus tracking in the ascending aorta with a threshold of 180 HU was performed. Immediately afterwards, ECG synchronized cardiac CT was then performed from the cardiac base to apex using retrospective gating with ECG tube current modulation. A total of 85 mL of Isovue 370 mg/mL contrast medium was administered at 5 mL/sec followed by a saline flush using a biphasic injection protocol. A tube voltage of 120 KVp was used. The patient received the following medications prior to the cardiac CT. 75 mg of oral metoprolol 15 mg of oral ivabradine The average heart rate at the time of acquisition was 51 bpm and regular. Image Reconstruction Transaxial images were reconstructed at 0.67 mm slide thickness. Data was reviewed interactively on an advanced workstation capable of 2 and 3-dimensional displays in all conventional reconstruction formats, including multiplanar reformations, maximum intensity projections, curved multiplanar reformations, and volume rendered reconstructions. When applicable, selected routine images describing the relevant coronary anatomy and pathology were saved and sent to PACS. Complications None Technical Quality Overall image quality was good. Coronary artery opacification was adequate. Total DLP (Dose-Length Product) is 1239.4 mGy-cm. The reported value represents the total of one or more individual components during the CT acquisition of this date and at this time, and as such, the same value may appear in more than one CT report depending on the interpreting/reporting physicians. COMPARISON None FINDINGS CT Coronary Calcium Scoring LMA (Left Main Artery) = 12 LAD (Left Anterior Descending) = 23 LCX (Left Coronary Circumflex) = 0 RCA (Right Coronary Artery) = 0 Total Calcium Score = 35 using the AJ-130 method. The observed calcium score of 35 is at 79th percentile for subjects of the same age, sex, and race/ethnicity. The interpretation of the calcium heart score is based on the following continuum*: 0 = no calcified plaque detected (risk of coronary artery disease is very low ??? less than 5%) 1-10 = calcium detected in extremely minimal levels (risk of coronary diseases is still low ??? less than 10%) 11-100 = mild levels of plaque detected with certainty (mild or minimal narrowing of heart arteries is likely) 101-400 = definite,at least moderate levels of plaque detected (relatively high risk of a heart attack within 3-5 years) >401-999 = extensive levels of plaque detected (high risk of heart attack, high levels of vascular disease are present, high likelihood of at least one significant coronary narrowing) *The calcium heart score quantifies the burden of coronary calcification/plaque in the coronary arteries. The calcium heart score is not able to evaluate the presence or burden of non-calcified (i.e. soft) plaque. There is also identifiable calcification in the in the ascending and descending thoracic aorta. Coronary CT Angiography The coronary arterial system is right dominant. Quantitative Stenosis Grading: Left Main (LM): The left main originates normally from the left sinus of Valsalva. The LM bifurcates into the left anterior descending artery and left circumflex artery. There is calcified plaque in the LM, but without luminal stenosis. Left Anterior Descending (LAD) and Diagonal Branches: The LAD gives off 2 diagonal branches. There is calcified plaque in the proximal LAD, with < 25% luminal stenosis. There is no evidence of LAD-myocardial bridge. Left Circumflex (LCX) and Obtuse Marginals (OM): The LCX gives off 1 Obtuse Marginal (OM) branch. The LCX and its branches are patent with no evidence of atherosclerosis. Right Coronary Artery (RCA): The RCA originates normally from the right sinus of Valsalva. The RCA gives off a posterior descending artery (PDA) and posterolateral (PL) branches. There are mild noncalcified luminal irregularities with < 25% stenosis. Non-Coronary Cardiac Findings: Analysis of the left ventricular (LV) structure and function was performed after 3-D reconstruction of the LV from axial images, with user-corrected automatic contouring for assessment of LV volumes and user-defined reconstruction from oblique planes for measurement of 3-D cardiac structure and function. -The left ventricle systolic function is normal. -There is no left atrial appendage filling defect. Two right pulmonary veins and two left pulmonary veins drain normally into the left atrium. -No pericardial thickening or calcification. -Central and branch pulmonary arteries in the [id number] are unremarkable. -Thoracic aorta within the visualized thoracic aortic-branches in the [id number] is unremarkable. Extracardiac Structures No significant extra-cardiac findings. Note, however, that this study is focused on the cardiac findings. IMPRESSION -Mild coronary calcification with an Agatston score = 35 using the AJ-130 method. -The observed calcium score of 35 is at 79th percentile for subjects of the same age, sex, and race/ethnicity. -No evidence of significant flow-limiting atherosclerosis of the coronary arteries. No evidence of significant multivessel disease. -CAD-RADS 1. Management recommendations per ACC/AHA guidelines*, as clinically appropriate. *Recommendations: CAD RADS 0: Reassurance. Consider non-atherosclerotic causes of chest pain. CAD RADS 1: Consider non-atherosclerotic causes of chest pain. Consider preventive therapy and risk factor modification. CAD RADS 2: Consider non-atherosclerotic causes of chest pain. Consider preventive therapy and risk factor modification, particularly for patients with nonobstructive plaque in multiple segments. CAD RADS 3: Consider further functional testing. Consider symptom-guided anti-ischemic and preventive pharmacotherapy as well as risk factor modification per published guideline statements. CAD RADS 4A: Consider further functional testing or invasive coronary angiography with revascularization per published guideline statements. Consider symptom-guided anti-ischemic and preventive pharmacotherapy as well as risk factor modification per published guideline statements. CAD RADS 4B: Invasive coronary angiography recommended with revascularization per published guideline statements. Consider symptom-guided anti-ischemic and preventive pharmacotherapy as well as risk factor modification per published guideline statements. CAD RADS 5: Consider invasive angiography and/or viability assessment with revascularization per published guideline statements. Consider symptom-guided anti-ischemic and preventive pharmacotherapy as well as risk factor modification per published guideline statements. CRITICAL RESULT None COMMUNICATION Per this written report The coronary and cardiac findings of this CCTA were reviewed, reported, and signed by Loc Perez MD (Quality Control Lab Tech) Conclusion Electronically signed by : Ricarda Perez MD 07/07/2023 16:06:43
[2023-07-02 09:32] VITALS: BMI 36.3
[2023-07-02] MEDS: IVABRADINE HCL 7.5MG TABLET PO (09:44)
[2023-07-02] MEDS: METOPROLOL TARTRATE 50MG TABLET PO (09:44)
[2023-07-02 10:53] VITALS: BP 90/64; PULSE 56; RESP 16; O2SAT 98
[2023-07-02 10:56] VITALS: BP 118/55; PULSE 56; RESP 16; O2SAT 99
[2023-07-02 10:59] VITALS: BP 127/68; PULSE 56; RESP 16; O2SAT 99
[2023-07-02] MEDS: SODIUM CHLORIDE 0.9% 10ML SYR (RAD ONLY) 10 ML IV (10:59)
[2023-07-02 11:02] VITALS: BP 125/69; PULSE 57; RESP 16; O2SAT 99
[2023-07-02] MEDS: 0.9 % SODIUM CHLORIDE 50 ML VIAL IV (11:03)
[2023-07-02] MEDS: IOPAMIDOL-370 (76%);100ML BOTTLE 85 ML IV (11:03)
[2023-07-02 11:09] VITALS: BP 140/56; PULSE 68; RESP 16; O2SAT 98
== END 2023-07-02 11:10 | disposition home or self-care (01) ==
PROVIDERS: PCP Nurse Practitioner; Visit Provider Nurse Practitioner
DX: R07.9 Chest pain, unspecified (principal)
CPT/HCPCS: 75571; 75574; Q9967

== ENCOUNTER 2023-07-08 09:40 | Outpatient (POV) | payer MEDICARE, MEDICAID, SELFPAY | END 2023-07-08 23:59 | disposition home or self-care (01) | LOC: SC 09:41 | PROVIDERS: Visit Provider Specialist/Technologist | DX: Z00.00 Encounter for general adult medical examination without abnormal findings (principal) ==

== ENCOUNTER 2023-10-12 09:48 | Emergency (ER) | payer MEDICARE, MEDICAID, SELFPAY ==
[2023-10-12 10:00] VITALS: BP 145/68; PULSE 75; RESP 19; TEMP 36.6; O2SAT 96; BMI 20.9
[2023-10-12] MEDS: DEXAMETHASONE 4MG/ML 1ML VIAL 8 MG IM (10:16)
--- NOTE | 2023-10-12 10:31 | ED_ITS ---
Discharge Plan Disposition Patient Disposition: Home, Self-Care Condition: Good Prescriptions Prescriptions: New azithromycin [Zithromax] 250 mg tablet 250 mg PO UD DOSE PK Qty: 6 0RF Rx Instructions: Take two (2) tablets today, then one (1) tablet days #2 thru #5 benzonatate 100 mg capsule 100 mg PO TIDP PRN (Reason: Cough) Qty: 30 0RF methylprednisolone 4 mg Tablets,Dose Pack 4 mg PO DIRECTED 6 Days Qty: 21 0RF Rx Instructions: Take 1 pack as directed for 6 days No Action montelukast 10 mg tablet 10 mg PO DAILY celecoxib [Celebrex] 50 mg capsule 200 mg PO BID omeprazole 40 mg capsule,delayed release(DR/EC) 40 mg PO DAILY estradiol 1 mg tablet 1 mg PO DAILY Referrals Follow up/Referrals: Soraida Coughlin APRN [Primary Care Provider] - See instructions Activity Restrictions/Add. Instructions Additional Instructions/Restrictions: Drink plenty of fluids. Take tylenol or ibuprofen for pain or fever. Take the medications as directed. Follow up with your regular doctor. GO TO THE ER FOR ANY WORSENING SYMPTOMS Don't start the oral steroids (medrol dose pack) until tomorrow since you had the shot her Clinical Impressions Clinical Impression: Sinusitis, Bronchitis, Acute viral syndrome Instructions Patient Instructions: Sinusitis, DI for Sinusitis, Dexamethasone Injection Discharge ED Provider: Carlo Veloz [facility] [place] HPI General Stated complaint: head congestion, cough Mode of Arrival: Ambulatory Source of Information: Patient Limitations: No Limitations Time Seen by Provider: 10/12/23 10:30 Description of Symptoms (Recalled from Triage Doc. by RN): PATIENT C/O COUGH AND HEAD/CHEST CONGESTION X 5 DAYS HEENT Symptoms (Recalled from RN notes): Yes Resp Symptoms (Recalled from RN notes): Yes Skin Symptoms (Recalled from RN notes): No MS Symptoms (Recalled from RN notes): No Functional Status (Recalled from RN notes): WNL Related Data Home Medications Medication Instructions Recorded Confirmed estradiol 1 mg tablet 1 mg PO DAILY HORMONE REPLACEMENT 04/24/23 10/12/23 omeprazole 40 mg capsule,delayed 40 mg PO DAILY GERD 04/24/23 10/12/23 release montelukast 10 mg tablet 10 mg PO DAILY 06/16/23 10/12/23 celecoxib 50 mg capsule (Celebrex) 200 mg PO BID 07/15/23 10/12/23 Previous Rx's Medication Instructions Recorded azithromycin 250 mg tablet 250 mg PO UD DOSE PK #6 tabs 10/12/23 (Zithromax) benzonatate 100 mg capsule 100 mg PO TIDP PRN Cough #30 caps 10/12/23 methylprednisolone 4 mg tablets in 4 mg PO DIRECTED 6 days #21 tabs 10/12/23 a dose pack Allergies Allergy/AdvReac Type Severity Reaction Status Date / Time No Known Allergies Allergy Verified 10/12/23 09:28 Worker's Comp Is this a Worker's Comp case?: No [facility] Disclaimer: The information contained in this section may have been updated after the patient was seen, as this information can be updated by other users. Medical History Tinnitus left>right SNHL (sensorineural hearing loss) Coronary artery disease Abnormal nuclear cardiac imaging test History of anemia Depression Anxiety Cancer Palpitations Angina, class III Ex-smoker HLD (hyperlipidemia) Family history of coronary artery disease Edema Dizziness SOB (shortness of breath) HTN (hypertension) Abnormal stress test Surgical History H/O: hysterectomy History of neck surgery History of cholecystectomy Social History Smoking Status: Current every day smoker second hand exposure: No alcohol intake: never substance use type: denies use current occupational status: employed Travel in the last 8 weeks: None household members: family housing: house current occupational exposures/hazards: No caffeine: No ROS Obtained: Yes All systems reviewed & no additional complaints except as documented Constitutional Constitutional: Reports chills and Reports fever(s) Eyes Eyes: Denies eye discharge ENT Ears, Nose, Mouth, and Throat: Reports as per HPI Cardiovascular Cardiovascular: Denies chest pain Respiratory Respiratory: Denies chest congestion and Reports cough Gastrointestinal Gastrointestingal: Reports nausea; Denies abdominal pain, constipation, cramping, diarrhea or vomiting Musculoskeletal Musculoskeletal: Denies arthralgias Integumentary/Breasts Skin/Breast: Denies rash Neurologic Neurologic: Denies paresthesias Physical Exam General General appearance: alert and in no apparent distress Head Head exam: atraumatic, normocephalic and normal inspection Eye Eye exam: Present normal appearance, PERRL and EOMI ENT ENT exam: Present mucous membranes moist and normal external ear exam Expanded ENT Exam TM/Canal exam: Bilateral TM: erythema and bulging Nose exam: Absent sinus tenderness Mouth exam: Present normal external inspection; Absent drooling Teeth exam: Present normal inspection Throat exam: Present tonsillar erythema, tonsillomegaly and tonsillar exudate Neck Neck exam: Present normal inspection, full ROM and trachea midline; Absent tenderness, meningismus or lymphadenopathy Chest Chest inspection: Present normal inspection and symmetric chest wall rise; Absent tenderness Respiratory Respiratory exam: Present normal lung sounds bilaterally; Absent respiratory distress, wheezes or stridor Cardiovascular Cardiovascular exam: Present regular rate and normal rhythm; Absent systolic murmur or diastolic murmur Abdominal Exam Abdominal exam: Present soft and normal bowel sounds; Absent distention, tenderness, guarding, rebound or rigidity Extremities Exam Extremities exam: Present normal inspection and normal capillary refill; Absent calf tenderness Back Exam Back exam: Present normal inspection and full ROM; Absent tenderness, CVA tenderness (R) or CVA tenderness (L) Neurological Exam Neurological exam: Present alert, oriented X3 and CN II-XII intact Psychiatric Psychiatric exam: Present normal affect and normal mood Skin Skin exam: Present warm, dry, intact and normal color Medical Decision Making Medical Records Medical records reviewed: No I reviewed the patient's medical records. Tam Inquiry Pt receiving controlled substance: No Vital Signs: 10/12/23 10:00 Temperature 97.9 F Temperature Source Oral Pulse Rate [Left Brachial] 75 Respiratory Rate 19 Blood Pressure [Left Arm] 145/68 H Blood Pressure Mean [Left Arm] 93 Blood Pressure Source [Left Arm] Automatic Cuff Blood Pressure Position [Left Arm] Sitting 02 Sat by Pulse Oximetry 96 Oxygen Delivery Method Room Air Lab Data Lab results reviewed: Yes I reviewed the patient's lab results. Orders (Tests/Meds): ED MEDICATIONS Discontinued Medications Generic Name Dose Route Start Last Admin Trade Name Danii PRN Reason Stop Dose Admin Dexamethasone Sodium Phosphate 8 mg 10/12/23 10:10 10/12/23 10:16 Dexamethasone 4mg/Ml 1ml Vial IM 10/12/23 10:11 8 mg ONCE ONE Administration
[2023-10-12 10:35] VITALS: BP 145/68; PULSE 75; RESP 19; TEMP 36.6; O2SAT 96
== END 2023-10-12 10:38 | disposition home or self-care (01) ==
PROVIDERS: Emergency Provider Nurse Practitioner Family; PCP Nurse Practitioner Family
DX: J20.9 Acute bronchitis, unspecified (principal); J01.90 Acute sinusitis, unspecified; B34.9 Viral infection, unspecified
CPT/HCPCS: 96372; 99212; 99214; G0463; J1100

== ENCOUNTER 2023-11-09 13:19 | Outpatient (CLI) | payer MEDICARE, MEDICAID, SELFPAY ==
--- NOTE | 2023-11-09 13:23 | CA_ITS ---
FINAL REPORT TECHNIQUE: Multiple transverse and longitudinal images were performed of the right femoral-popliteal deep venous system with augmentation and compression maneuvers. CLINICAL HISTORY: EDEMA/PAIN RLE S/P RT KNEE REPLACEMENT 2 WKS AGO, BRUISING CALF AND THIGH,PT ON ASA COMPARISON: None FINDINGS: Right lower extremity duplex ultrasound demonstrates normal flow in the deep venous system. There is no abnormal echogenicity to suggest thrombus. There is normal compression and augmentation. There is a 3.2 cm popliteal cyst. IMPRESSION: No evidence of right DVT. Popliteal cyst. Reviewed, Interpreted and Dictated by Leo Cross MD Transcribed by Arti Phillips Authenticated and . [facility]
== END 2023-11-09 23:59 | disposition home or self-care (01) ==
LOC: RT 13:19
PROVIDERS: PCP Nurse Practitioner Family; Visit Provider Nurse Practitioner Family
DX: M79.604 Pain in right leg (principal); R60.9 Edema, unspecified; I82.401 Acute embolism and thrombosis of unspecified deep veins of right lower extremity
CPT/HCPCS: 93971

== ENCOUNTER 2024-02-27 15:23 | Emergency (ER) | payer MEDICARE, MEDICAID, SELFPAY ==
[2024-02-27 16:00] VITALS: BP 131/77; PULSE 80; RESP 19; TEMP 37.1; O2SAT 98; BMI 37.9
[2024-02-27 16:18] LABS: UTC Influenza A Antigen Negative (Negative); UTC Influenza B Antigen Negative (Negative)
--- NOTE | 2024-02-27 16:23 | EXP.UTC ---
Discharge Plan Disposition Patient Disposition: Home, Self-Care Condition: Good Prescriptions Prescriptions: No Action celecoxib [Celebrex] 50 mg capsule 200 mg PO BID metoprolol succinate 25 mg tablet extended release 24 hr 25 mg PO DAILY omeprazole 40 mg capsule,delayed release(DR/EC) 40 mg PO DAILY estradiol 1 mg tablet 1 mg PO DAILY Referrals Follow up/Referrals: Soraida Coughlin APRN [Primary Care Provider] - See instructions Activity Restrictions/Add. Instructions Additional Instructions/Restrictions: No sign of a bacterial infection. Likely viral. Viruses can take 7-14 days to run their course. Nasal saline and bulb syringe or nose Tatyana to remove nasal drainage to help with nasal congestion. Hard to eat, drink, sleep with nasal congestion so important to keep this cleaned out. Monitor temp. Tylenol or Motrin as needed for pain or fever Encourage fluids, water, Gatorade, Powerade, Pedialyte if /toddler/child Warm salt water gargles Warm fluids Sore throat lozenges Sleep elevated Humidifier/vaporizer Follow-up immediately for new or worsening symptoms or no noticeable improvement over the next 48-72 hours. Clinical Impressions Clinical Impression: Upper respiratory infection, viral, Close exposure to COVID-19 virus Instructions Patient Instructions: DI for Viral Upper Respiratory Infection -- Adult, DI for COVID-19 (Suspected or Confirmed ) Print Language Print Language: Panamanian Discharge ED Provider: Quinten ([facility] [place] HPI General Stated complaint: congestion,dizzy,fever,headache Mode of Arrival: Ambulatory Source of Information: Patient Limitations: No Limitations Time Seen by Provider: 02/27/24 16:23 Description of Symptoms (Recalled from Triage Doc. by RN): PATIENT C/O HEADACHE, BODY ACHES, CONGESTION, AND FEELING TIRED SINCE THIS MORNING HEENT Symptoms (Recalled from RN notes): Yes Resp Symptoms (Recalled from RN notes): No Skin Symptoms (Recalled from RN notes): No MS Symptoms (Recalled from RN notes): No Functional Status (Recalled from RN notes): WNL History of Present Illness Provider Complaint: 63-year-old female presents with complaints of headache, body ache, congestion, and feeling tired that started this morning. Patient states her daughter was diagnosed with COVID Related Data Home Medications ?Medication ?Instructions ?Recorded ?Confirmed estradiol 1 mg tablet 1 mg PO DAILY HORMONE REPLACEMENT 04/24/23 02/27/24 omeprazole 40 mg capsule,delayed 40 mg PO DAILY GERD 04/24/23 02/27/24 release celecoxib 50 mg capsule (Celebrex) 200 mg PO BID 07/15/23 02/27/24 metoprolol succinate 25 mg 25 mg PO DAILY 10/19/23 02/27/24 tablet,extended release 24 hr Allergies Allergy/AdvReac Type Severity Reaction Status Date / Time No Known Allergies Allergy Verified 10/19/23 10:01 Worker's Comp Is this a Worker's Comp case?: No PFSH [facility] Disclaimer: The information contained in this section may have been updated after the patient was seen, as this information can be updated by other users. Medical History , DRAFTER ASSISTANT) Tinnitus SNHL (sensorineural hearing loss) Coronary artery disease Abnormal nuclear cardiac imaging test History of anemia Depression Anxiety Cancer Palpitations Angina, class III Ex-smoker HLD (hyperlipidemia) Family history of coronary artery disease Edema Dizziness SOB (shortness of breath) HTN (hypertension) Abnormal stress test Surgical History , DRAFTER ASSISTANT) H/O: hysterectomy History of neck surgery History of cholecystectomy Social History , DRAFTER ASSISTANT) Smoking Status: Current every day smoker second hand exposure: No alcohol intake: never substance use type: denies use current occupational status: employed Travel in the last 8 weeks: None household members: family housing: house current occupational exposures/hazards: No caffeine: No ROS Obtained: Yes Systems reviewed as appropriate & no additional complaints except as documented Physical Exam General General appearance: alert and in no apparent distress ENT ENT exam: Present normal exam Respiratory Respiratory exam: Present normal lung sounds bilaterally Cardiovascular Cardiovascular exam: Present regular rate and normal rhythm Neurological Exam Neurological exam: Present alert and oriented X3 Skin Skin exam: Present warm and intact Medical Decision Making Medical Records Medical records reviewed: Yes I reviewed the patient's medical records. Screening: Per USPSTF and CDC recommendations, given the prevalence of disease in our region, it is our hospital?s policy to screen for HIV and viral Hepatitis for all patients aged 18 and over and those with ongoing risk factors. Tam Inquiry Pt receiving controlled substance: No Tam was queried for this patient: No Vital Signs: 02/27/24 16:00 Temperature 98.7 F Temperature Source Oral Pulse Rate [Left Brachial] 80 Respiratory Rate 19 Blood Pressure [Left Arm] 131/77 Blood Pressure Mean [Left Arm] 95 Blood Pressure Source [Left Arm] Automatic Cuff Blood Pressure Position [Left Arm] Sitting 02 Sat by Pulse Oximetry 98 Oxygen Delivery Method Room Air Lab Data Lab results reviewed: Yes I reviewed the patient's lab results. Lab Results 02/27/24 16:06: Influenza Type A Ag Negative, Influenza Type B Ag Negative
[2024-02-27 16:39] VITALS: BP 131/77; PULSE 80; RESP 19; TEMP 37.1; O2SAT 98
[2024-02-27 17:10] LABS: Influenza A, PCR Not Detected (NotDetected); Influenza B, PCR Not Detected (NotDetected)
[2024-02-27 17:40] LABS: Coronavirus 19, PCR Detected (NotDetected)
== END 2024-02-27 16:43 | disposition home or self-care (01) ==
PROVIDERS: Emergency Provider Nurse Practitioner Family; PCP Nurse Practitioner Family
DX: J06.9 Acute upper respiratory infection, unspecified (principal)
CPT/HCPCS: 87636; 87804; 99213; G0381

== ENCOUNTER 2024-05-22 15:43 | Outpatient (CLI) | payer MEDICARE, MEDICAID, SELFPAY ==
[2024-05-22 16:44] LABS: Basophils # 0.1 K/mm3 (0-0.2); Eosinophils # 0.2 K/mm3 (0.0-0.4); Eosinophils % 3.6 % (0.1-12.0); Hematocrit 38.8 % (37.0-47.0); Hemoglobin 12.5 g/dL (12.2-16.2); Lymphocytes # 1.1 K/mm3 (0.7-4.5); Lymphocytes % 22.5 % (10-50); Mean Corpuscular HGB Conc 32.2 g/dL (31.8-35.4); Mean Corpuscular Hemoglobin 29.6 pg (27.0-31.2); Mean Corpuscular Volume 91.7 fl (81-99); Monocytes # 0.3 K/mm3 (0.1-1.0); Monocytes % 6.2 % (1.7-9.3); Neutrophils # 3.3 K/mm3 (1.8-7.8); Neutrophils % 66.5 % (37.0-80.0); Platelet Count 242 K/mm3 (142-424); Red Blood Count 4.23 M/mm3 (4.20-5.40); Red Cell Distribution Width 13.7 % (11.5-17.5)
[2024-05-22 18:23] LABS: Albumin Level 4.2 g/dl (3.5-5.0); Chloride 104 mmol/L (98-107); Potassium 3.6 mmoL/L (3.5-5.1); Sodium 140 mmol/L (136-145)
[2024-05-22 18:25] LABS: Blood Urea Nitrogen 13 mg/dl (7-17); Estimated Glomerular Filt Rate 85 ml/min (>60); GFR (African American) 103 ML/MIN (>60)
[2024-05-22 18:26] LABS: Alanine Aminotransferase 18 U/L (12-78); Alkaline Phosphatase 78 U/L (38-126); Aspartate Amino Transferase 28 U/L (14-36); Bilirubin,Direct 0.2 mg/dl (0.0-0.4); Bilirubin,Total 0.2 mg/dl (0.2-1.3); Cholesterol 226 mg/dl (140-200); Glucose 144 mg/dl (74-100); Magnesium 2.2 mg/dl (1.6-2.3); Total Protein,Serum 6.9 g/dl (6.3-8.2); Triglycerides 122 mg/dl (30-150); VLDL Cholesterol 24 mg/dL (0-40)
[2024-05-22 18:27] LABS: Chol/HDL Ratio 3.6 (1-3.5); HDL Cholesterol 62 mg/dl (40-60)
[2024-05-22 18:37] LABS: Direct LDL Cholesterol 113.27 mg/dL (100-129)
[2024-05-22 18:51] LABS: Free T4 (Free Thyroxine) 1.09 ng/dl (0.78-2.19)
[2024-05-22 18:56] LABS: Thyroid Stimulating Hormone 0.66 uIU/mL (0.465-4.68)
[2024-05-22 18:57] LABS: Anion Gap 10.6 mEq/L (5-15); Carbon Dioxide 29 mmol/L (22.0-30.0)
== END 2024-05-22 23:59 | disposition home or self-care (01) ==
LOC: LAB 15:44
PROVIDERS: PCP Nurse Practitioner Family; Visit Provider Physician Assistant
DX: I25.10 Atherosclerotic heart disease of native coronary artery without angina pectoris (principal); I10 Essential (primary) hypertension; E78.2 Mixed hyperlipidemia; Z82.49 Family history of ischemic heart disease and other diseases of the circulatory system
CPT/HCPCS: 36415; 80048; 80061; 80076; 83735; 84439; 84443; 85025

== ENCOUNTER 2024-05-25 11:33 | Outpatient (CLI) | payer MEDICARE, MEDICAID, SELFPAY | END 2024-05-25 23:59 | disposition home or self-care (01) | LOC: RT 11:33 | PROVIDERS: PCP Internal Medicine Adolescent Medicine; Visit Provider Physician Assistant | DX: R00.2 Palpitations (principal); R42 Dizziness and giddiness | CPT/HCPCS: 93270 ==

== ENCOUNTER 2024-05-30 13:13 | Outpatient (CLI) | payer MEDICARE, SELFPAY ==
--- NOTE | 2024-05-30 13:17 | CA_ITS ---
FINAL REPORT TECHNIQUE: Color Doppler, duplex Doppler and calles scale sonography of the bilateral neck vasculature was performed. Velocities were measured in the carotid arteries. Stenosis evaluation based on velocity criteria. CLINICAL HISTORY: syncope, Dizziness COMPARISON: None FINDINGS: The peak systolic velocity of the right common carotid artery is 102 cm/sec and internal carotid artery 140 cm/sec. The diastolic velocity in the internal carotid artery is 40 cm/sec. The ICA/CCA ratio is 1.4. Visually, a small amount of plaque is seen. These findings are consistent with less than 50% stenosis. The external carotid artery is patent. The right vertebral artery is patent with antegrade flow. The peak systolic velocity of the left common carotid artery is 114 cm/sec and internal carotid artery 150 cm/sec. The diastolic velocity in the internal carotid artery is 46 cm/sec. The ICA/CCA ratio is 1.7. Visually, a small amount of plaque is seen. These findings are consistent with less than 50% stenosis. The external carotid artery is patent. The left vertebral artery is patent with antegrade flow. IMPRESSION: No evidence of significant carotid stenosis. Bilateral patent vertebral arteries. If indicated, CTA or MRA could further evaluate. Reviewed, Interpreted and Dictated by Leo Cross MD Transcribed by Tara Escalante Authenticated and [facility]
== END 2024-05-30 23:59 | disposition home or self-care (01) ==
LOC: RT 13:13
PROVIDERS: PCP Internal Medicine Adolescent Medicine; Visit Provider Physician Assistant
DX: R00.2 Palpitations (principal); R42 Dizziness and giddiness
CPT/HCPCS: 93880

== ENCOUNTER 2024-08-24 13:33 | Outpatient (CLI) | payer MEDICARE, SELFPAY ==
--- OUTSIDE RECORDS SUMMARY | 2024-08-24 13:35 | XMS_ITS | Data Portability ---
Author Organization [facility] [employer] [facility] ADMIN Address [address] [place] [id number] Assessment Encounter Date Assessment Date Assessment LastModified by Organization Details LastModified Time 12/11/2021 12/11/2021 61-year-old female with: 1) Hepatitis B: Surface Ag negative, DNA quant undetected, HBV surface AB positive, normal LFTs as of 06/2021. I suspect is no longer infected. Will obtain labs per below to assess for active infection and HBE AB seroconversion. If no evidence of ongoing infection, she will be instructed to discontinue Entacavir. She will have repeat labs in 3 months as well. 2) History of colon polyps: Repeat surveillance colonoscopy due 07/2026 3) Left sided abdominal cramping: Acute. Likely functional in nature. Will prescribe short course of dicyclomine. [email or web address] Not available 12/11/2021 17:18:29 04/02/2022 04/02/2022 61-year-old female with: 1) Hepatitis B: Most likely acute infection that has resolved. She was started on treatment in the acute phase of infection due to rapidly rising hepatic function labs. These started to decrease same day she started Entecavir. She has been off Entecavir since 01/02/22 following evidence of seroconversion. Labs performed 1 month after stopping entecavir show no concerns for active infection. Will repeat labs now per below. If unremarkable, she will f/u in 6 months to repeat. If negative at that time, she will not likely require further f/u. 2) History of colon polyps: Repeat surveillance colonoscopy due 07/2026 3) Left sided abdominal cramping: Resolved. This was previously improved with dicyclomine. 4) Gastric intestinal metaplasia: No known family history of gastric cancer. No surveillance recommended at this time. [email or web address] Not available 04/02/2022 13:49:47 09/30/2022 09/30/2022 61-year-old female with: 1) Hepatitis B: I suspect she had acute infection that has resolved. She was started on treatment in the acute phase of infection due to rapidly rising hepatic function labs. These started to decrease same day she started Entecavir. She has been off Entecavir since 01/02/22 following evidence of seroconversion. Labs performed since that time have show no concerns for active infection. Will repeat labs now per below. Will determine the need for further follow-up thereafter. 2) History of colon polyps: Repeat surveillance colonoscopy due 07/2026 3) Left sided abdominal cramping: Resolved. This was previously improved with dicyclomine. 4) Gastric intestinal metaplasia: No known family history of gastric cancer. No surveillance recommended at this time. [email or web address] Not available 09/30/2022 15:37:49 05/21/2023 05/21/2023 61-year-old female with: 1) Hepatitis B: I suspect she had acute infection that has resolved. She was started on treatment in the acute phase of infection due to rapidly rising hepatic function labs. These started to decrease same day she started Entecavir. She has been off Entecavir since 01/02/22 following evidence of seroconversion. Labs performed since that time have show no concerns for active infection. - Will recheck labs per below to ensure hepatitis-B is still in remission 2) History of colon polyps: Repeat surveillance colonoscopy due 07/2026 3) Left sided abdominal cramping: Resolved. This was previously improved with dicyclomine. 4) Gastric intestinal metaplasia: No known family history of gastric cancer. No surveillance recommended at this time. [email or web address] Not available 05/21/2023 11:19:19 Plan of Treatment Reminders Order Date Submit Date Provider Last Modified By Organization Details Last Modified Time Details Appointments None recorded. Lab Hepatitis B virus, DNA, quant, viral load, PCR, serum or plasma 2023 024 [facility] [facility], [address], [address], [place], [address], 03/03/202 4 07:08:04 HBsAg (hepatitis B surface Ag), EIA, serum 2023 024 [facility], [address], [address], [place], [address], 4 07:08:05 hepatic function panel, serum 2023 024 [facility], [address], [address], [place], [address], 4 07:08:02 CBC w/ auto diff 2023 024 [facility], [address], [address], [place], [address], 4 07:08:01 hepatitis B DNA, quantitativ e, serum [address] (Registration ), [address] [place], [address], 3 10:19:19 HBsAg (hepatitis B surface Ag), serum [address] (Registration ), [address] [place], [address], 3 10:19:19 CMP, serum or plasma 2022 023 [facility] (Registration ), [address] [place], [address], 3 16:00:32 CBC [address] (Registration ), [address] [place], [address], 3 10:19:19 hepatitis B surface Ab, quantitativ e, serum [address] (Registration ), [address], [place], [address], 3 10:19:19 hepatitis B core IgM Ab, qual, serum or plasma [address] (Registration ), [address], [place], [address], 3 10:19:19 PT/INR [address] (Registration ), [address], [place], [address], 3 10:19:19 hepatitis B DNA, quantitativ e, serum [address] (Registration ), [address], [place], [address], 3 10:43:32 HBsAg (hepatitis B surface Ag), serum [address] (Registration ), [address], [place], [address], 3 10:43:32 CMP, serum or plasma 2022 023 [facility] (Registration ), [address], [place], [address], 3 14:51:43 CBC [address] (Registration ), [address], [place], [address], 3 10:43:33 hepatitis B DNA, quantitativ e, serum [address] (Registration ), [address], [place], [address], 2 17:38:52 HBsAg (hepatitis B surface Ag), serum [address] (Registration ), [address] [place] [address], [place], [address], 2 17:38:52 hbeag (hepatitis B envelope Ag), serum [address] (Registration ), [address] [place] [address], [place], [address], 2 17:38:52 hbeab (hepatitis B envelope Ab), serum [address] (Registration ), [address] [place], [address], 2 17:38:52 hepatitis B surface Ab, qualitative , serum [address] (Registration ), [address] [place], [address], 2 17:38:52 CMP, serum or plasma 2021 [facility] (Registration ), [address] [place] [address], [place], [address], 2 15:44:50 CBC [address] (Registration ), [address] [place], [address], 2 17:38:53 Referral None recorded. Procedures None recorded. Surgeries None recorded. Imaging None recorded. Medication Orders dicyclomine 20 mg tablet 2021 [facility], [address] [place] [address], [address], [place], [address], 13:52:37 Patient TargetsNo targets recorded. Patient InstructionsNo instructions recorded. Reason for Referral None Reported. Results Created Date Observation Date Name Description Value Unit Range Abnormal Flag Note LastModifiedBy Organization Detail LastModifiedTime 12/12/19 22 12/11/2021 CBC AUTO NO DIFF (HEMO GRAM) WBC 6.7 K/uL 4.0-10 .5 Not Available [facility] ([facility]) [address] [place] , [place], [address], 12/11/2021 15:24:19 12/12/19 22 12/11/2021 CBC AUTO NO DIFF (HEMO GRAM) RBC 4.2 M/mm3 4.2-6. 4 Not Available [facility] ([facility]) [address] [place] , [place], [address], 12/11/2021 15:24:12/12/19 22 12/11/2021 CBC AUTO NO DIFF (HEMO GRAM) HGB 12.6 gm/dL 12.5-1 6.0 Not Available [facility] ([facility]) [address] [place] , [place], [address], 12/11/2021 15:24:12/12/19 22 12/11/2021 CBC AUTO NO DIFF (HEMO GRAM) HCT 39.1 % 37.0-4 7.0 Not Available [facility] ([facility]) [address] [place], [address], 12/11/2021 15:24:19 12/12/19 22 12/11/2021 CBC AUTO NO DIFF (HEMO GRAM) MCV 93.5 fL 78-100 Not Available [facility] ([facility]) [address] [place], [address], 12/11/2021 15:24:19 12/12/19 22 12/11/2021 CBC AUTO NO DIFF (HEMO GRAM) MCH 30.1 pg 27-31 Not Available [facility] ([facility]) [address] [place], [address], 12/11/2021 15:24:19 12/12/19 22 12/11/2021 CBC AUTO NO DIFF (HEMO GRAM) MCHC 32.2 g/dL 32-36 Not Available [facility] ([facility]) [address] , [place], [address], 12/11/2021 15:24:19 12/12/19 22 12/11/2021 CBC AUTO NO DIFF (HEMO GRAM) RDW 13.6 % 11.5-1 4.0 Not Available [facility] ([facility]) [address] [place] [address], [place], [address], 12/11/2021 15:24:19 12/12/19 22 12/11/2021 CBC AUTO NO DIFF (HEMO GRAM) platelet count 231 K/uL 150-45 0 Not Available [facility] ([facility]) [address] [place] [address], [place], [address], 12/11/2021 15:24:19 12/12/19 22 12/11/2021 CBC AUTO NO DIFF (HEMO GRAM) manual differential NO Not Available [facility] ([facility]) [address] [place] [address], [place], [address], 12/11/2021 15:24:19 12/12/19 22 12/11/2021 COMP METAB OLIC PANEL sodium 139 mmol/ L 136-14 5 Not Available [facility] ([facility]) [address] [place] [address], [place], [address], 12/11/2021 15:44:49 12/12/19 22 12/11/2021 COMP METAB OLIC PANEL potassium 3.7 mmol/ L 3.6-5. 0 Not Available [facility] ([facility]) [address] [place] [address], [place], [address], 12/11/2021 15:44:49 12/12/19 22 12/11/2021 COMP METAB OLIC PANEL chloride 103 mmol/ L 98-107 Not Available [facility] ([facility]) [address] , [place], [address], 12/11/2021 15:44:49 12/12/19 22 12/11/2021 COMP METAB OLIC PANEL carbon dioxide 27.5 mmol/ L 21.0-3 2.0 Not Available [facility] ([facility]) [address] , [place], [address], 12/11/2021 15:44:49 12/12/19 22 12/11/2021 COMP METAB OLIC PANEL anion gap 12.2 Not Available [facility] ([facility]) [address] , [place], [address], 12/11/2021 15:44:49 12/12/19 22 12/11/2021 COMP METAB OLIC PANEL glucose 87 mg/dL 70-120 Not Available [facility] ([facility]) [address] , [place], [address], 12/11/2021 15:44:49 12/12/19 22 12/11/2021 COMP METAB OLIC PANEL BUN 16 mg/dL 7-18 Not Available [facility] ([facility]) [address] , [place], [address], 12/11/2021 15:44:49 12/12/19 22 12/11/2021 COMP METAB OLIC PANEL creatinine 0.6 mg/dL 0.6-1. 3 Not Available [facility] ([facility]) [address] , [place], [address], 12/11/2021 15:44:49 12/12/19 22 12/11/2021 COMP METAB OLIC PANEL glomerular filtration rate >60 mlper min 60- Not Available [facility] ([facility]) [address] , [place], [address], 12/11/2021 15:44:49 12/12/1911 1212/11/2021 COMP METAB OLIC PANEL total protein 7.4 g/dL 6.4-8. 2 Not Available [facility] ([facility]) [address] , [place], [address], 12/11/2021 15:44:49 12/12/19 22 12/11/2021 COMP METAB OLIC PANEL albumin 3.6 g/dL 3.4-5. 0 Not Available [facility] ([facility]) [address] , [place], [address], 12/11/2021 15:44:49 12/12/19 22 12/11/2021 COMP METAB OLIC PANEL globulin 3.8 Not Available [facility] ([facility]) [address], [place], [address], 12/11/2021 15:44:49 12/12/19 22 12/11/2021 COMP METAB OLIC PANEL alb/glob ratio 0.9 0.7-2 Not Available [facility] ([facility]) [address] [place] [address], [place], [address], 12/11/2021 15:44:49 12/12/19 22 12/11/2021 COMP METAB OLIC PANEL calcium 8.6 mg/dL 8.5-10 .5 Not Available [facility] ([facility]) [address] [place] [address], [place], [address], 12/11/2021 15:44:49 12/12/19 22 12/11/2021 COMP METAB OLIC PANEL bilirubin total 0.33 mg/dL 0.10-1 .00 Not Available [facility] ([facility]) [address] [place], [address], 12/11/2021 15:44:49 12/12/19 22 12/11/2021 COMP METAB OLIC PANEL AST (SGOT) 10 U/L 0-37 Not Available [facility] ([facility]) [address] [place], [address], 12/11/2021 15:44:49 12/12/19 22 12/11/2021 COMP METAB OLIC PANEL ALT (SGPT) 18 U/L 0-65 Not Available [facility] ([facility]) [address], [place], [address], 12/11/2021 15:44:49 12/12/19 22 12/11/2021 COMP METAB OLIC PANEL alk phosphatase 82 U/L 46-116 Not Available [facility] ([facility]) [address], [place], [address], 12/11/2021 15:44:49 12/12/19 22 12/12/2021 HEPAT ITIS B SURFA CE AG EIA HBsAg screen Negati ve negati ve Perfo rmed at: [facility] [address] [facility] [address] [place] [address] Lab Direc tor: Jorge lubin PhD, Phone : [phone] Not Available [facility] ([facility]) [address] [facility], [place], [address], 12/12/2021 08:19:15 12/12/19 22 12/12/2021 HEPAT ITIS BE ANTIG EN hepatitis BE Ag Negati ve negati ve Perfo rmed at: [facility] [address] [place] [address] Lab Direc tor: Jorge lubin PhD, Phone : [phone] Not Available [facility] ([facility]) [address] [facility], [place], [address], 12/12/2021 11:17:46 12/12/19 22 12/12/2021 HEPAT ITIS BE AB hep BE Ab Positi ve negati ve delta Perfo rmed at: - [facility] [address] [employer] [facility], [place] [address] Lab Direc tor: Jorge lubin PhD, Phone : [phone] Not Available [facility] ([facility]) [address] , [place], [address], 12/12/2021 11:17:47 04/02/19 23 04/02/2022 CBC AUTO NO DIFF (HEMO GRAM) WBC 5.5 K/uL 4.0-10 .5 Not Available [facility] ([facility]) [address], [place], [address], 04/02/2022 14:15:45 04/02/19 23 04/02/2022 CBC AUTO NO DIFF (HEMO GRAM) RBC 4.6 M/mm3 4.2-6. 4 Not Available [facility] ([facility]) [address], [place], [address], 04/02/2022 14:15:45 04/02/19 23 04/02/2022 CBC AUTO NO DIFF (HEMO GRAM) HGB 13.0 gm/dL 12.5-1 6.0 Not Available [facility] ([facility]) [address], [place], [address], 04/02/2022 14:15:45 04/02/19 23 04/02/2022 CBC AUTO NO DIFF (HEMO GRAM) HCT 41.6 % 37.0-4 7.0 Not Available [facility] ([facility]) [address], [place], [address], 04/02/2022 14:15:45 04/02/19 23 04/02/2022 CBC AUTO NO DIFF (HEMO GRAM) MCV 91.4 fL 78-100 Not Available [facility] ([facility]) [address] [place], [address], 04/02/2022 14:15:45 04/02/19 23 04/02/2022 CBC AUTO NO DIFF (HEMO GRAM) MCH 28.6 pg 27-31 Not Available [facility] ([facility]) [address] [place], [address], 04/02/2022 14:15:45 04/02/19 23 04/02/2022 CBC AUTO NO DIFF (HEMO GRAM) MCHC 31.3 g/dL 32-36 low Not Available [facility] ([facility]) [address], [place], [address], 04/02/2022 14:15:45 04/02/19 23 04/02/2022 CBC AUTO NO DIFF (HEMO GRAM) RDW 14.1 % 11.5-1 4.0 high Not Available [facility] ([facility]) [address], [place], [address], 04/02/2022 14:15:45 04/02/19 23 04/02/2022 CBC AUTO NO DIFF (HEMO GRAM) platelet count 245 K/uL 150-45 0 Not Available [facility] ([facility]) [address], [place], [address], 04/02/2022 14:15:45 04/02/19 23 04/02/2022 CBC AUTO NO DIFF (HEMO GRAM) manual differential NO Not Available [facility] ([facility]) [address], [place], [address], 04/02/2022 14:15:45 04/02/19 23 04/02/2022 COMP METAB OLIC PANEL sodium 138 mmol/ L 136-14 5 Not Available [facility] ([facility]) [address], [place], [address], 04/02/2022 14:51:43 04/02/19 23 04/02/2022 COMP METAB OLIC PANEL potassium 3.8 mmol/ L 3.6-5. 0 Not Available [facility] ([facility]) [address], [place], [address], 04/02/2022 14:51:43 04/02/19 23 04/02/2022 COMP METAB OLIC PANEL chloride 102 mmol/ L 98-107 Not Available [facility] ([facility]) [address], [place], [address], 04/02/2022 14:51:43 04/02/19 23 04/02/2022 COMP METAB OLIC PANEL carbon dioxide 31.1 mmol/ L 21.0-3 2.0 Not Available [facility] ([facility]) [address], [place], [address], 04/02/2022 14:51:43 04/02/19 23 04/02/2022 COMP METAB OLIC PANEL anion gap 8.7 Not Available [facility] ([facility]) [address], [place], [address], 04/02/2022 14:51:43 04/02/19 23 04/02/2022 COMP METAB OLIC PANEL glucose 91 mg/dL 70-120 Not Available [facility] ([facility]) [address] , [place], [address], 04/02/2022 14:51:43 04/02/19 23 04/02/2022 COMP METAB OLIC PANEL BUN 16 mg/dL 7-18 Not Available [facility] ([facility]) [address] , [place], [address], 04/02/2022 14:51:43 04/02/19 23 04/02/2022 COMP METAB OLIC PANEL creatinine 0.7 mg/dL 0.6-1. 3 Not Available [facility] ([facility]) [address] , [place], [address], 04/02/2022 14:51:43 04/02/19 23 04/02/2022 COMP METAB OLIC PANEL glomerular filtration rate >60 mlper min 60- Not Available [facility] ([facility]) [address] , [place], [address], 04/02/2022 14:51:43 04/02/19 23 04/02/2022 COMP METAB OLIC PANEL total protein 7.4 g/dL 6.4-8. 2 Not Available [facility] ([facility]) [address], [place], [address], 04/02/2022 14:51:43 04/02/19 23 04/02/2022 COMP METAB OLIC PANEL albumin 3.2 g/dL 3.4-5. 0 low Not Available [facility] ([facility]) [address], [place], [address], 04/02/2022 14:51:43 04/02/19 23 04/02/2022 COMP METAB OLIC PANEL globulin 4.2 Not Available [facility] ([facility]) [address] , [place], [address], 04/02/2022 14:51:43 04/02/19 23 04/02/2022 COMP METAB OLIC PANEL alb/glob ratio 0.8 0.7-2 Not Available [facility] ([facility]) [address] , [place], [address], 04/02/2022 14:51:43 04/02/19 23 04/02/2022 COMP METAB OLIC PANEL calcium 8.8 mg/dL 8.5-10 .5 Not Available [facility] ([facility]) [address] , [place], [address], 04/02/2022 14:51:43 04/02/19 23 04/02/2022 COMP METAB OLIC PANEL bilirubin total 0.22 mg/dL 0.10-1 .00 Not Available [facility] ([facility]) [address] , [place], [address], 04/02/2022 14:51:43 04/02/19 23 04/02/2022 COMP METAB OLIC PANEL AST (SGOT) 15 U/L 0-37 Not Available [facility] ([facility]) [address], [place], [address], 04/02/2022 14:51:43 04/02/19 23 04/02/2022 COMP METAB OLIC PANEL ALT (SGPT) 16 U/L 0-65 Not Available [facility] ([facility]) [address] , [place], [address], 04/02/2022 14:51:43 04/02/19 23 04/02/2022 COMP METAB OLIC PANEL alk phosphatase 81 U/L 46-116 Not Available [facility] ([facility]) [address] , [place], [address], 04/02/2022 14:51:43 04/02/19 23 04/03/2022 HEPAT ITIS B DNA QUANT HBV IU/mL <10 IU/mL HBV DNA detec ramon Not Available [facility] ([facility]) [address], [place], [address], 04/03/2022 19:11:08 04/02/19 23 04/03/2022 HEPAT ITIS B DNA QUANT HBV IU/mL TNP log10 _IU/m L Unabl e to calcu late resul t since non-n umeri c resul t obtai elba for compo nent test. Not Available [facility] ([facility]) [address] , [place], [address], 04/03/2022 19:11:08 04/02/19 23 04/03/2022 HEPAT ITIS B DNA QUANT test information Commen t . The repor table range for this assay is 10 IU/mL to 1 rakesh on IU/mL . Perfo rmed at: [facility] [address] [place] [address] Lab Direc tor: Kenzie cardona MD, Phone : [phone] Not Available [facility] ([facility]) [address] , [place], [address], 04/03/2022 19:11:08 04/02/19 23 04/03/2022 HEPAT ITIS B SURFA CE AG EIA HBsAg screen Negati ve negati ve Perfo rmed at: [facility] [address] [facility], [place] [id number] Lab Direc tor: Jorge lubin PhD, Phone : [phone] Not Available [facility] ([facility]) [address] [facility], [place], [address], 04/03/2022 19:11:09 10/01/19 23 09/30/2022 CBC AUTO NO DIFF (HEMO GRAM) WBC 8.9 K/uL 4.0-10 .5 Not Available [facility] ([facility]) [address] [facility], [place], [address], 09/30/2022 15:23:40 10/01/19 23 09/30/2022 CBC AUTO NO DIFF (HEMO GRAM) RBC 4.4 M/mm3 4.2-6. 4 Not Available [facility] ([facility]) [address] [facility], [place], [address], 09/30/2022 15:23:40 10/01/19 23 09/30/2022 CBC AUTO NO DIFF (HEMO GRAM) HGB 13.3 gm/dL 12.5-1 6.0 Not Available [facility] ([facility]) [address] [facility], [place], [address], 09/30/2022 15:23:40 10/01/19 23 09/30/2022 CBC AUTO NO DIFF (HEMO GRAM) HCT 40.6 % 37.0-4 7.0 Not Available [facility] ([facility]) [address] [facility], [place], [address], 09/30/2022 15:23:40 10/01/19 23 09/30/2022 CBC AUTO NO DIFF (HEMO GRAM) MCV 92.1 fL 78-100 Not Available [facility] ([facility]) [address] , [place], [address], 09/30/2022 15:23:40 10/01/19 23 09/30/2022 CBC AUTO NO DIFF (HEMO GRAM) MCH 30.2 pg 27-31 Not Available [facility] ([facility]) [address], [place], [address], 09/30/2022 15:23:40 10/01/19 23 09/30/2022 CBC AUTO NO DIFF (HEMO GRAM) MCHC 32.8 g/dL 32-36 Not Available [facility] ([facility]) [address], [place], [address], 09/30/2022 15:23:40 10/01/19 23 09/30/2022 CBC AUTO NO DIFF (HEMO GRAM) RDW 14.1 % 11.5-1 4.0 high Not Available [facility] ([facility]) [address], [place], [address], 09/30/2022 15:23:40 10/01/19 23 09/30/2022 CBC AUTO NO DIFF (HEMO GRAM) platelet count 224 K/uL 150-45 0 Not Available [facility] ([facility]) [address], [place], [address], 09/30/2022 15:23:40 10/01/19 23 09/30/2022 CBC AUTO NO DIFF (HEMO GRAM) manual differential NO Not Available [facility] ([facility]) [address], [place], [address], 09/30/2022 15:23:40 10/01/19 23 09/30/2022 PT (PROT HROMB IN TIME) W INR prothrombin time 9.3 secon ds 9.3-11 .4 Not Available [facility] ([facility]) [address], [place], [address], 09/30/2022 15:42:04 10/01/19 23 09/30/2022 PT (PROT HROMB IN TIME) W INR INR 0.9 ratio 0.97-1 .05 low INR is inten ded to be used ONLY for patie nts on stabl e oral antic oagul ant thera py. Thera peuti c Range s: 2.0-3 .0 Usual Thera peuti c Range 2.5-3 .5 For patie nts with histo ry of Multi ple Deep Vein Throm bus or Mecha nical Heart Valve s Not Available [facility] ([facility]) [address] [facility], [place], [address], 09/30/2022 15:42:04 10/01/19 23 09/30/2022 COMP METAB OLIC PANEL sodium 141 mmol/ L 136-14 5 Not Available [facility] ([facility]) [address] [facility], [place], [address], 09/30/2022 16:00:32 10/01/19 23 09/30/2022 COMP METAB OLIC PANEL potassium 3.6 mmol/ L 3.6-5. 0 Not Available [facility] ([facility]) [address], [place], [address], 09/30/2022 16:00:32 10/01/19 23 09/30/2022 COMP METAB OLIC PANEL chloride 105 mmol/ L 98-107 Not Available [facility] ([facility]) [address] [place], [address], 09/30/2022 16:00:32 10/01/19 23 09/30/2022 COMP METAB OLIC PANEL carbon dioxide 28.8 mmol/ L 21.0-3 2.0 Not Available [facility] ([facility]) [address], [place], [address], 09/30/2022 16:00:32 10/01/19 23 09/30/2022 COMP METAB OLIC PANEL anion gap 10.8 Not Available [facility] ([facility]) [address], [place], [address], 09/30/2022 16:00:32 10/01/19 23 09/30/2022 COMP METAB OLIC PANEL glucose 98 mg/dL 70-120 Not Available [facility] ([facility]) [address], [place], [address], 09/30/2022 16:00:32 10/01/19 23 09/30/2022 COMP METAB OLIC PANEL BUN 18 mg/dL 7-18 Not Available [facility] ([facility]) [address] , [place], [address], 09/30/2022 16:00:32 10/01/19 23 09/30/2022 COMP METAB OLIC PANEL creatinine 0.7 mg/dL 0.6-1. 3 Not Available [facility] ([facility]) [address] , [place], [address], 09/30/2022 16:00:32 10/01/19 23 09/30/2022 COMP METAB OLIC PANEL glomerular filtration rate >60 mlper min 60- Not Available [facility] ([facility]) [address], [place], [address], 09/30/2022 16:00:32 10/01/19 23 09/30/2022 COMP METAB OLIC PANEL total protein 7.0 g/dL 6.4-8. 2 Not Available [facility] ([facility]) [address] , [place], [address], 09/30/2022 16:00:32 10/01/19 23 09/30/2022 COMP METAB OLIC PANEL albumin 3.2 g/dL 3.4-5. 0 low Not Available [facility] ([facility]) [address] , [place], [address], 09/30/2022 16:00:32 10/01/19 23 09/30/2022 COMP METAB OLIC PANEL globulin 3.8 Not Available [facility] ([facility]) [address] , [place], [address], 09/30/2022 16:00:32 10/01/19 23 09/30/2022 COMP METAB OLIC PANEL alb/glob ratio 0.8 0.7-2 Not Available [facility] ([facility]) [address] , [place], [address], 09/30/2022 16:00:32 10/01/19 23 09/30/2022 COMP METAB OLIC PANEL calcium 8.6 mg/dL 8.5-10 .5 Not Available [facility] ([facility]) [address] , [place], [address], 09/30/2022 16:00:32 10/01/19 23 09/30/2022 COMP METAB OLIC PANEL bilirubin total 0.30 mg/dL 0.10-1 .00 Not Available [facility] ([facility]) [address] , [place], [address], 09/30/2022 16:00:32 10/01/19 23 09/30/2022 COMP METAB OLIC PANEL AST (SGOT) 19 U/L 0-37 Not Available [facility] ([facility]) [address] , [place], [address], 09/30/2022 16:00:32 10/01/19 23 09/30/2022 COMP METAB OLIC PANEL ALT (SGPT) 22 U/L 0-65 Not Available [facility] ([facility]) [address], [place], [address], 09/30/2022 16:00:32 10/01/19 23 09/30/2022 COMP METAB OLIC PANEL alk phosphatase 84 U/L 46-116 Not Available [facility] ([facility]) [address] , [place], [address], 09/30/2022 16:00:32 10/01/19 23 10/03/2022 HEPAT ITIS B DNA QUANT [id number] HBV DNA not detect ed IU/mL Not Available [facility] ([facility]) [address], [place], [address], 10/03/2022 06:15:08 10/01/19 23 10/03/2022 HEPAT ITIS B DNA QUANT HBV IU/mL TNP log10 _IU/m L Unabl e to calcu late resul t since non-n umeri c resul t obtai elba for compo nent test. Not Available [facility] ([facility]) [address], [place], [address], 10/03/2022 06:15:08 10/01/19 23 10/03/2022 HEPAT ITIS B DNA QUANT test information Commen t . The repor table range for this assay is 10 IU/mL to 1 rakesh on IU/mL . [facility] at: [facility] [place] [address] , [place] [address] Lab Direc tor: Kenzie cardona MD, Phone : [phone] Not Available [facility] ([facility]) [address] , [place], [address], 10/03/2022 06:15:08 10/01/19 23 10/03/2022 HEP B S AB YERFI hep B surface Ab 35.9 mIU/m L immuni ty>9.9 Statu s of Immun ity Anti- HBs Level ----- ----- ----- --- ----- ----- ---- Incon siste nt with Immun ity 0.0 - 9.9 Consi stent with Immun ity >9.9 Perfo rmed at: CB - [facility] Jeremiah darden [address], [place] [address] Lab Direc tor: Jorge lubin PhD, Phone : [phone] Not Available [facility] ([facility]) [address], [place], [address], 10/03/2022 06:15:09 10/01/19 23 10/03/2022 HEPAT ITIS B SURFA CE AG EIA HBsAg screen Negati ve negati ve Perfo rmed at: [facility] [address] [place] [address] 12[address] Lab Dire tor: Jorge lubin PhD, Phone : [phone] Not Available [facility] ([facility]) [address], [place], [address], 10/03/2022 06:15:10 10/01/19 23 10/03/2022 HEP B CORE AB IGM QUAL hep B core Ab, IgM Negati ve negati ve Perfo rmed at: [place] [id number] [place] [address] Lab [facility] tor: Jorge lubin PhD, Phone : [phone] Not Available [facility] ([facility]) [address], [place], [address], 10/03/2022 06:15:11 05/21/19 24 05/22/2023 CBC WITH DIFFE RENTI AL/PL ATELE T WBC 9.5 x10e3 /uL 3.4-10 .8 Not Available [facility] ([facility]) [address] [place], [address], 05/23/2023 07:08:01 05/21/19 24 05/22/2023 CBC WITH DIFFE RENTI AL/PL ATELE T RBC 4.80 x10e6 /uL 3.77-5 .28 Not Available [facility] ([facility]) [address] [facility], [place], [address], 05/23/2023 07:08:01 05/21/19 24 05/22/2023 CBC WITH DIFFE RENTI AL/PL ATELE T hemoglobin 13.6 g/dL 11.1-1 5.9 Not Available [facility] ([facility]) [address] [facility], [place], [address], 05/23/2023 07:08:01 05/21/19 24 05/22/2023 CBC WITH DIFFE RENTI AL/PL ATELE T hematocrit 41.5 % 34.0-4 6.6 Not Available [facility] ([facility]) [address] [facility], [place], [address], 05/23/2023 07:08:01 05/21/19 24 05/22/2023 CBC WITH DIFFE RENTI AL/PL ATELE T MCV 87 fL 79-97 Not Available [facility] ([facility]) [address] [facility], [place], [address], 05/23/2023 07:08:01 05/21/19 24 05/22/2023 CBC WITH DIFFE RENTI AL/PL ATELE T MCH 28.3 pg 26.6-3 3.0 Not Available [facility] ([facility]) [address] [place], [address], 05/23/2023 07:08:01 05/21/19 24 05/22/2023 CBC WITH DIFFE RENTI AL/PL ATELE T MCHC 32.8 g/dL 31.5-3 5.7 Not Available [facility] ([facility]) [address] [place], [address], 05/23/2023 07:08:01 05/21/19 24 05/22/2023 CBC WITH DIFFE RENTI AL/PL ATELE T RDW 13.0 % 11.7-1 5.4 Not Available [facility] ([facility]) [address] [place], [address], 05/23/2023 07:08:01 05/21/19 24 05/22/2023 CBC WITH DIFFE RENTI AL/PL ATELE T platelets 268 x10e3 /uL 150-45 0 Not Available [facility] ([facility]) [address] [facility], [place], [address], 05/23/2023 07:08:01 05/21/19 24 05/22/2023 CBC WITH DIFFE RENTI AL/PL ATELE T neutrophils 67 % not estab. Not Available [facility] ([facility]) [address] [facility], [place], [address], 05/23/2023 07:08:01 05/21/19 24 05/22/2023 CBC WITH DIFFE RENTI AL/PL ATELE T lymphs 23 % not estab. Not Available [facility] ([facility]) [address] [facility], [place], [address], 05/23/2023 07:08:01 05/21/19 24 05/22/2023 CBC WITH DIFFE RENTI AL/PL ATELE T monocytes 8 % not estab. Not Available [facility] ([facility]) [address] [facility], [place], [address], 05/23/2023 07:08:01 05/21/19 24 05/22/2023 CBC WITH DIFFE RENTI AL/PL ATELE T eos 1 % not estab. Not Available [facility] ([facility]) [address] [facility], [place], [address], 05/23/2023 07:08:01 05/21/19 24 05/22/2023 CBC WITH DIFFE RENTI AL/PL ATELE T basos 0 % not estab. Not Available [facility] (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) [address] [facility], [place], [address], 05/23/2023 07:08:01 05/21/19 24 05/22/2023 CBC WITH DIFFE RENTI AL/PL ATELE T neutrophils (absolute) 6.5 x10e3 /uL 1.4-7. 0 Not Available [facility] ([facility]) [address] [facility], [place], [address], 05/23/2023 07:08:01 05/21/19 24 05/22/2023 CBC WITH DIFFE RENTI AL/PL ATELE T lymphs (absolute) 2.1 x10e3 /uL 0.7-3. 1 Not Available [facility] ([facility]) [address] [facility], [place], [address], 05/23/2023 07:08:01 05/21/19 24 05/22/2023 CBC WITH DIFFE RENTI AL/PL ATELE T monocytes(ab solute) 0.8 x10e3 /uL 0.1-0. 9 Not Available [facility] ([facility]) [address] [facility], [place], [address], 05/23/2023 07:08:01 05/21/19 24 05/22/2023 CBC WITH DIFFE RENTI AL/PL ATELE T eos (absolute) 0.1 x10e3 /uL 0.0-0. 4 Not Available [facility] ([facility]) [address] [facility], [place], [address], 05/23/2023 07:08:01 05/21/19 24 05/22/2023 CBC WITH DIFFE RENTI AL/PL ATELE T baso (absolute) 0.0 x10e3 /uL 0.0-0. 2 Not Available [facility] ([facility]) [address] [place], [address], 05/23/2023 07:08:01 05/21/19 24 05/22/2023 CBC WITH DIFFE RENTI AL/PL ATELE T immature granulocytes 1 % not estab. Not Available [facility] ([facility]) [address] [facility], [place], [address], 05/23/2023 07:08:01 05/21/19 24 05/22/2023 CBC WITH DIFFE RENTI AL/PL ATELE T immature grans (abs) 0.1 x10e3 /uL 0.0-0. 1 Not Available [facility] (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) [address] [facility], [place], [address], 05/23/2023 07:08:01 05/21/19 24 05/22/2023 CBC WITH DIFFE RENTI AL/PL ATELE T hematology comments: CELLULAR EQUIPMENT INSTALLER Not Available [facility] ([facility]) [address] [facility], [place], [address], 05/23/2023 07:08:01 05/21/19 24 05/22/2023 HEPAT IC FUNCT ION PANEL (7) protein, total 6.7 g/dL 6.0-8. 5 Not Available [facility] ([facility]) [address] [facility] [place], [address], 05/23/2023 07:08:02 05/21/19 24 05/22/2023 HEPAT IC FUNCT ION PANEL (7) albumin 4.1 g/dL 3.9-4. 9 Not Available [facility] ([facility]) [address] [facility] [place], [address], 05/23/2023 07:08:02 05/21/19 24 05/22/2023 HEPAT IC FUNCT ION PANEL (7) bilirubin, total 0.3 mg/dL 0.0-1. 2 Not Available [facility] ([facility]) [address] [place], [address], 05/23/2023 07:08:02 05/21/19 24 05/22/2023 HEPAT IC FUNCT ION PANEL (7) bilirubin, direct 0.10 mg/dL 0.00-0 .40 Not Available [facility] ([facility]) [address] [facility] [place], [address], 05/23/2023 07:08:02 05/21/19 24 05/22/2023 HEPAT IC FUNCT ION PANEL (7) alkaline phosphatase 78 IU/L 44-121 Not Available [facility] ([facility]) [address] [facility] [place], [address], 05/23/2023 07:08:02 05/21/19 24 05/22/2023 HEPAT IC FUNCT ION PANEL (7) AST (SGOT) 14 IU/L 0-40 Not Available [facility] ([facility]) [address] [facility] [place], [address], 05/23/2023 07:08:02 05/21/19 24 05/22/2023 HEPAT IC FUNCT ION PANEL (7) ALT (SGPT) 11 IU/L 0-32 Not Available [facility] ([facility]) [address] [facility] [place], [address], 05/23/2023 07:08:02 05/21/19 24 05/21/2023 HBV REAL- TIME PCR, QUANT test information: COMMEN T The repor table range for this assay is 10 IU/mL to 1 rakesh on IU/mL . Not Available [facility] ([facility]) [address] [facility] [place], [address], 05/23/2023 07:08:03 05/21/19 24 05/22/2023 HBV REAL- TIME PCR, QUANT HBV IU/mL HBV DNA NOT DETECT ED IU/mL Not Available [facility] ([facility]) [address] [place], [address], 05/23/2023 07:08:03 05/21/19 24 05/22/2023 HBV REAL- TIME PCR, QUANT log10 HBV IU/mL COMMEN T log10 _IU/m L Unabl e to calcu late resul t since non-n umeri c resul t obtai elba for compo nent test. Not Available [facility] ([facility]) [address] [facility], [place], [address], 05/23/2023 07:08:03 05/21/19 24 05/22/2023 HBSAG SCREE N HBsAg screen NEGATI VE negati ve Not Available [facility] ([facility]) [address] [facility], [place], [address], 05/23/2023 07:08:04 05/21/19 24 05/21/2023 PLEAS E NOTE please note Commen t The date and/o r time of colle ction was not indic ated on the requi sitio n as requi red by state and [place]i al law. The date of recei pt of the speci men was used as the colle ction date if not suppl ied. Not Available [facility] ([facility]) [address] [facility], [place], [address], 05/23/2023 07:08:05 Result Notes None recorded. Problems Name Problem SNOMED Code Status Onset Date Resolution Date Notes Provider Name and Address Organization Details Recorded Time Type B viral hepatitis 82500918 Active [address], [place], [address] , [facility] & [place] 2 13:46:47 Gastric intestinal metaplasia 85607010 Active [address], [place], [address] , [place] - [facility] & [place] 2 13:47:13 Reactive gastropathy 265635569 Active [address], [place], [address] , [facility] & [place] 2 13:47:19 Left sided abdominal pain 693436417 Active 2021 Killian Escalante PA-C [address] , [place], [address] , [facility] & [place] 2 13:47:45 Problem Notes None recorded. Procedures Surgical History Date Name Laterality Status Provider Name and Address Organization Details Recorded Time 2 Date of Last Colonoscopy completed Margret Kuo [facility] & [place] 04/02/2022 13:23:57 Imaging Results None recorded. Procedure Notes None recorded. Medical Equipment None Reported. Allergies Allergen ID Allergen Name Allergen Category Reaction Reaction Severity Criticality Documentation Date Start Date Code Code System Note Provider Name and Address Organization Details Recorded Time 92879 acetamino phen / oxycodone medicatio n Not available Not available Not available 12/11/2021 01112 3 RxNorm Margret Kuo [facility] & [place] 2 13:49:49 Medications Name Sig Start Date Stop Date Status Note LastModified by Organization Details LastModified Time celecoxib 200 mg capsule TAKE 1 CAPSULE BY MOUTH ONCE DAILY active Not Available Not Available No t Available azithromycin 250 mg tablet 04/02 completed Not Available Not Available Not Available prednisone 20 mg tablet active Not Available Not Available Not Available metronidazol e 500 mg tablet active Not Available Not Available Not Available omeprazole 40 mg capsule,chetna yed release active Not Available Not Available Not Available amoxicillin 875 mg tablet active Not Available Not Available Not Available estradiol 1 mg tablet active Not Available Not Available No t Available dicyclomine 20 mg tablet Take 1 tablet 4 times a day by oral route for 14 days. active Not Available Not Available No t Available cephalexin 500 mg capsule active Not Available Not Available Not Available montelukast 10 mg tablet active Not Available Not Available Not Available azelastine 137 mcg (0.1 %) nasal spray active Not Available Not Available Not Available methylpredni solone 4 mg tablets in a dose pack active Not Available Not Available No t Available cefdinir 300 mg capsule 04/02 completed Not Available Not Available Not Available amoxicillin 875 mg-potassium clavulanate 125 mg tablet 09/30 completed Not Available Not Available Not Available oxycodone 5 mg tablet active Not Available Not Available No t Available hydrochlorot hiazide 12.5 mg tablet active Not Available Not Available No t Available diclofenac 1 % topical gel active Not Available Not Available Not Available Vitals Date Recorded Body weight Systolic blood pressure Diastolic blood pressure Provider Name and Address Organization Details Last Updated DateTime 04/02/2022 39556.77 g 122 mm[Hg] 84 mm[Hg] Margret Stock [facility] & [place] 04/02/2022 13:23:46 Date Recorded Body height Body mass index (BMI) Body weight Body temperature Oxygen saturation Oxygen saturation in Arterial blood by Pulse oximetry Heart rate Heart rate Systolic blood pressure Diastolic blood pressure Provider Name and Address Organization Details Last Updated DateTime 4 167.64 cm 37.9 kg/m2 578621. 49 g 97.8 [degF] 96 % 96 % 72 /min 71 /min 157 mm[Hg] 80 mm[Hg] Ramesh Ramirez [facility] & [place] 4 10:16:19 Date Recorded Body weight Body mass index (BMI) Body height Body temperature Heart rate Oxygen saturation Oxygen saturation in Arterial blood by Pulse oximetry Systolic blood pressure Diastolic blood pressure Provider Name and Address Organization Details Last Updated DateTime 3 438065. 07 g 35.8 kg/m2 167.64 cm 97.7 [degF] 85 /min 94 % 94 % 147 mm[Hg] 75 mm[Hg] Michelle Stock [facility] & [place] 3 14:23:50 Date Recorded Body weight Heart rate Systolic blood pressure Diastolic blood pressure Provider Name and Address Organization Details Last Updated DateTime 12/11/2021 29894.81 g 76 /min 131 mm[Hg] 71 mm[Hg] [facility] [place] 12/11/2021 13:49:29 Social History Question Answer Notes LastModified by Organizat ion Details LastModified Time Tobacco Smoking Status Never Smoker MALOU Veliz [facility] & [place] 09/30/2022 14:24:45 What Is Your Level Of Caffeine Consumption? Moderate Information not available 09/30/2022 Sex: Unknown Functional Status Question Answer Note LastModified by Organizat ion Details LastModified Time Do you use any illicit or recreational drugs? No [email or web address] Information not available 09/30/2022 Do you or have you ever used any other forms of tobacco or nicotine? No [email or web address] Information not available 09/30/2022 What is your level of alcohol consumption? None [email or web address] Information not available 09/30/2022 Mental Status None recorded. Family History Relationship Description Onset Age of this Age Resolved Age Notes LastModified by Organization Details LastModified Time Father Hearing loss pt. added direct ly (05/18) [email or web address] Not available 05/18/2023 10:43:12 Father Heart disease pt. added direct ly (05/18) [email or web address] Not available 05/18/2023 10:43:31 Medical History No medical history recorded. Gynecological History Statement/Question Response Menses Monthly N Abnormal Pap N Date of Last Colonoscopy 07/07/2021 Sexually Active? Y Obstetrics History GPAL:G 0 P 0 0 0 0 Past Encounters Encounter ID Performer Location Encounter Start Date Encounter Closed Date Diagnosis/Indication Diagnosis SNOMED-CT Code Diagnosis ICD10 Code Diagnosis Note [id number] Killian Escalante PA-C [facility] [address] [address] 12/11/2021 13:15:19 12/11/2021 14:14:12 Type B viral hepatitis 65727046 B19.10 History of polyp of colon 544354823 Z86.010 Repeat surveillan ce colonoscop y due 07/2026 Gastric in testinal metaplasia 99598929 K31.A0 Reactive gastropathy 399 980108 K31.9 Left sided abdominal pain 926834899 R10.9 [id number] Killian Escalante PA-C [facility] [address] [address] 04/02/2022 13:13:06 04/02/2022 13:40:17 Type B viral hepatitis 38193966 B19.10 History of polyp of colon 591054417 Z86.010 Repeat surveillan ce colonoscop y due 07/2026 Gastric in testinal metaplasia 19030250 K31.A0 Reactive gastropathy 399 571616 K31.9 Left sided abdominal pain 451713325 R10.9 [id number] Killian Escalante PA-C [facility] [address] [address] 09/30/2022 14:15:04 09/30/2022 14:46:00 Type B viral hepatitis 93871444 B19.10 History of polyp of colon 673464030 Z86.010 Repeat surveillan ce colonoscop y due 07/2026 Gastric in testinal metaplasia 69653424 K31.A0 Reactive gastropathy 399 456246 K31.9 Left sided abdominal pain 005214382 R10.9 [id number] Gibson Bautista MD [facility] [address] [address] 05/21/2023 09:43:02 05/21/2023 11:01:53 Type B viral hepatitis 54950296 B19.10 History of polyp of colon 403962095 Z86.010 Gastric in testinal metaplasia 29448813 K31.A0 Reactive gastropathy 399 460192 K31.9 Left sided abdominal pain 722101193 R10.9 Health Concerns Section Related Observation LastModified by Organization Detai ls LastModified Time None Recorded Concern Status LastModified by Organization Details LastModified Time None Recorded Advance Directives Directive None Recorded Payers Insurance Date Sequence Insurance Name Policy Number Policy Fabian Covered Member ID Fabian Member ID Guarantor Name 09/30/2022 1 [employer] (MEDICARE REPLACEMENT/A DVANTAGE - HMO) Emelia Castro [id number] Emelia Castro 05/21/2023 1 [facility] (MEDICARE REPLACEMENT/A DVANTAGE - HMO) SAM Castro [id number] Emelia Castro 12/11/2021 1 [employer] (MEDICARE REPLACEMENT/A DVANTAGE - HMO) Emelia Castro [id number] Emelia Castro Notes Date Note Type Note Provider Name and Address Organization Details Recorded Time 12/11/2021 text/html Very pleasant 61-year-old female with history of hepatitis B infection, on treatment with Entecavir since 01/2021. She was started on treatment due to rapidly increasing transaminases during the acute phase of infection. Labs performed in June 2021 indicated a negative hepatitis B surgace Ag, positive hepatitis B surface AB, normal CMP, and hepatitis B DNA PCR that was undetectable. She has continued treatment with Entecavir. Currently, she feels well overall but has had some left sided abdominal cramping for the past 2 days. She denies nausea, vomiting, change in bowel habits, melena, or hematochezia. EGD and colonoscopy performed earlier this year showed gastric intestinal metaplasia on gastric biopsy, but were otherwise unremarkable. Killian Escalante PA-C [id number], [place], [address], [facility] & [place] 12/11/2021 17:19:21 04/02/2022 text/html PREVIOUS ( 2): Very pleasant 61-year-old female with history of hepatitis B infection, on treatment with Entecavir since 01/2021. She was started on treatment due to rapidly increasing transaminases during the acute phase of infection. Labs performed in June 2021 indicated a negative hepatitis B surgace Ag, positive hepatitis B surface AB, normal CMP, and hepatitis B DNA PCR that was undetectable. She has continued treatment with Entecavir. Currently, she feels well overall but has had some left sided abdominal cramping for the past 2 days. She denies nausea, vomiting, change in bowel habits, melena, or hematochezia. EGD and colonoscopy performed earlier this year showed gastric intestinal metaplasia on gastric biopsy, but were otherwise unremarkable. CURRENT: Ms. Castro returns to the office today for follow-up of previous acute hepatitis B infection. She stopped Entecavir 01/02/2022 after she was noted to have evidence of seroconversion, negative hep BE Ag, and positive hep BE Ab. Labs performed on 02/03/22 showed a negative hepatitis B surf Ag, undetectable HBV DNA, negative hepatitis B Core AB IgM, and unremarkable CMP. She is feeling very well currently and is without physical complaint at this time. She denies jaundice, scleral icterus, pruritis, or abdominal pain. Killian Escalante PA-C [address], [place], [address], [place] - [facility] - [place] & [place] 04/02/2022 13:50:19 09/30/2022 text/html PREVIOUS ( 2): Very pleasant 61-year-old female with history of hepatitis B infection, on treatment with Entecavir since 01/2021. She was started on treatment due to rapidly increasing transaminases during the acute phase of infection. Labs performed in June 2021 indicated a negative hepatitis B surgace Ag, positive hepatitis B surface AB, normal CMP, and hepatitis B DNA PCR that was undetectable. She has continued treatment with Entecavir. Currently, she feels well overall but has had some left sided abdominal cramping for the past 2 days. She denies nausea, vomiting, change in bowel habits, melena, or hematochezia. EGD and colonoscopy performed earlier this year showed gastric intestinal metaplasia on gastric biopsy, but were otherwise unremarkable. PREVIOUS (04/02/22): Ms. Castro returns to the office today for follow-up of previous acute hepatitis B infection. She stopped Entecavir 01/02/2022 after she was noted to have evidence of seroconversion, negative hep BE Ag, and positive hep BE Ab. Labs performed on 02/03/22 showed a negative hepatitis B surf Ag, undetectable HBV DNA, negative hepatitis B Core AB IgM, and unremarkable CMP. She is feeling very well currently and is without physical complaint at this time. She denies jaundice, scleral icterus, pruritis, or abdominal pain. CURRENT (09/30/22): Ms. Castro presents to the office today for follow-up of viral hepatitis B infection. Entecavir was stopped last December as she was no longer felt to have active infection. Labs performed 04/02/22 showed a negative hepatitis B surface antigen, normal LFTs, and hepatitis B DNA quant that was <10. She has been feeling well and is without physical complaint at this time. Her daughter is also a patient at our clinic who has established care regarding hepatitis B infection. Killian Escalante PA-C [address], [place], [address], [place] - [place] & [place] 09/30/2022 15:38:04 05/21/2023 text/html PREVIOUS (9/22/2 2): Very pleasant 61-year-old female with history of hepatitis B infection, on treatment with Entecavir since 01/2021. She was started on treatment due to rapidly increasing transaminases during the acute phase of infection. Labs performed in June 2021 indicated a negative hepatitis B surgace Ag, positive hepatitis B surface AB, normal CMP, and hepatitis B DNA PCR that was undetectable. She has continued treatment with Entecavir. Currently, she feels well overall but has had some left sided abdominal cramping for the past 2 days. She denies nausea, vomiting, change in bowel habits, melena, or hematochezia. EGD and colonoscopy performed earlier this year showed gastric intestinal metaplasia on gastric biopsy, but were otherwise unremarkable. PREVIOUS (04/02/22): Ms. Castro returns to the office today for follow-up of previous acute hepatitis B infection. She stopped Entecavir 01/02/2022 after she was noted to have evidence of seroconversion, negative hep BE Ag, and positive hep BE Ab. Labs performed on 02/03/22 showed a negative hepatitis B surf Ag, undetectable HBV DNA, negative hepatitis B Core AB IgM, and unremarkable CMP. She is feeling very well currently and is without physical complaint at this time. She denies jaundice, scleral icterus, pruritis, or abdominal pain. PREVIOUS (09/30/22 Iliana Escalante): Ms. Castro presents to the office today for follow-up of viral hepatitis B infection. Entecavir was stopped last December as she was no longer felt to have active infection. Labs performed 04/02/22 showed a negative hepatitis B surface antigen, normal LFTs, and hepatitis B DNA quant that was <10. She has been feeling well and is without physical complaint at this time. Her daughter is also a patient at our clinic who has established care regarding hepatitis B infection. CURRENT (05/21/23 Keon Michel): Ms. Castro presents to the clinic today complaining of abdominal pain and bloating followed by lightheadedness and dizziness. She then feels very hot and weak. She reports this is how she felt when she had hepatitis-B. She states it could also be related to anxiety due to stress and recent deaths within her family. She would like to be checked today for hepatitis-B to ensure that she is still in remission. She denies hematemesis, hematochezia or melena. STEVIE MICHEL MSN, OPERATIONS PROGRAM MANAGER, BREAKFAST SUPERVISOR-C [address] [facility], [place], [address], [facility] - [place] & [place] 05/21/2023 11:20:29 OBGyn Episode No OBEpisode recorded.
--- NOTE | 2024-08-24 13:36 | XR_ITS ---
FINAL REPORT CLINICAL HISTORY: LEFT MID FOOT PAIN AND SWELLING ON THE MEDIAL SIDE MORE TOWARDS THE DORSAL SURFACE COMPARISON: None FINDINGS: AP, oblique and lateral views of the left foot were obtained. There is no acute fracture or dislocation. The patient has undergone prior hallux valgus repair, and there are postoperative changes in the head of the fifth metatarsal as well. Mild degenerative joint disease is present. Soft tissues are unremarkable. IMPRESSION: Postoperative changes of the left foot as described. Mild degenerative joint disease without acute bony abnormality. Reviewed, Interpreted and Dictated by Lauryn Conway MD Transcribed by Tara Escalante Authenticated and [facility]
== END 2024-08-24 23:59 | disposition home or self-care (01) ==
LOC: RAD 13:33
PROVIDERS: PCP Nurse Practitioner Family; Visit Provider Physician Assistant
DX: M19.072 Primary osteoarthritis, left ankle and foot (principal); Z98.890 Other specified postprocedural states
CPT/HCPCS: 73630

== ENCOUNTER 2024-12-12 11:51 | Outpatient (CLI) | payer MEDICARE, SELFPAY ==
--- OUTSIDE RECORDS SUMMARY | 2024-12-12 11:53 | XMS_ITS | Clinical Summary ---
Author Organization [facility] Address [address] [place] [address] Care Team Providers Care Home Care Liaison Name Role Phone Sebas Campbell MD Primary Care Provider [phone] Allergies No known active allergies Medications Multiple Vitamin (MULTI-VITAMIN DAILY PO) Take by mouth. 07/10/2013 Active atorvastatin (Lipitor) 10 MG tablet Take by mouth. 10/11/2017 Active busPIRone (Buspar) 10 MG tablet Take by mouth. 10/11/2017 Active diazePAM (Valium) 5 MG tablet Take by mouth. 10/11/2017 Active estradiol (Estrace) 1 MG tablet Take by mouth. 06/09/2013 Active furosemide (Lasix) 40 MG tablet Take by mouth. 07/10/2013 Active HYDROcodone-acet aminophen (Lucan) 10-325 MG tablet Take by mouth. 06/09/2013 Active meloxicam (Mobic) 15 MG tablet Take by mouth. 10/11/2017 Active montelukast (Singulair) 10 MG tablet Take by mouth. 10/11/2017 Active omeprazole (PriLOSEC) [address] capsule Take by mouth. 06/09/2013 Active propranolol (Inderal) 10 MG tablet Take by mouth. 10/11/2017 Active TRIAMTERENE-HCTZ PO Take by mouth. 10/11/2017 Active Resolved Problems Problem Noted Date Diagnosed Date Resolved Date S/P arthroscopy of right shoulder 10/25/2020 12/10/2024 Family History Medical History Relation Name Comments Cardiac disorder Father Uterine cancer Mother Relation Name Status Comments Father Mother Social History Tobacco Use Types Packs/Day Years Used Date Smoking Tobacco: Former Smokeless Tobacco: Never Alcohol Use Standard Drinks/Week Comments No 0 (1 standard drink = 0.6 oz pur e alcohol) Comments Unknown Sex and Gender Information Value Date Recorded Sex Assigned at Not on file Legal Sex Female 8:55 PM EDT Gender Identity Not on file Sexual Orientation Not on file Last Filed Vital Signs Vital Sign Reading Time Taken Comments Blood Pressure 142/73 12/10/2020 10:36 AM EDT Pulse 72 12/10/2020 10:36 AM EDT Temperature 36.7 C (98 F) 12/10/2020 10:36 AM EDT Respiratory Rate - - Oxygen Saturation 98% 12/10/2020 10:36 AM EDT Inhaled Oxygen Concentration - - Weight 79.8 kg (176 lb) 12/10/2020 10:36 AM EDT Height 166.4 cm (5' 5.5 ) 12/10/2020 10:36 AM ED T Body Mass Index 28.84 12/10/2020 10:36 AM EDT Plan of Treatment Health Maintenance Due Date Last Done Comments [facility]-Depression Screening 1961 [facility]-Infant/Child/Adol SDOH Screenings 1961 [facility]- SDOH Screenings 11/11/1979 [facility]-Adult SDOH Screenings 11/11/1979 [facility]-DTaP,Tdap,and Td Vaccines (1 - Tdap) 1980 [facility]-Pap Smear 1982 [facility]-Cervical Cancer Screening 11/11/1991 [facility]-HPV/Cotest 11/11/1991 CT Colonography 2006 Colonoscopy 2006 FIT-DNA 2006 FIT 2006 FOBT 2006 Sigmoidoscopy 2006 [facility]-Colorectal Cancer Screening 2006 [facility]-Pneumococcal Vaccine: 50+ Years (1 of 1 - PCV) 11/11/2011 [facility]-Zoster Vaccines (1 of 2) 11/11/2011 [id number] Vaccine (1 - 2023- season) 2024 [facility]-Influenza Vaccine (#1) 11/20/202412/13, 03/02/2019, 11/29/2017, Additional history exists [facility]-RSV Vaccine: 60+ Years or (1 - 1-dose 75+ series) 2036 HPV Vaccines Aged Out No longer eligi ble based on patient's age to complete this topic [facility]-HIB Vaccines Aged Out No longer e ligible based on patient's age to complete this topic [facility]-Hepatitis A Vaccines Aged Out No longer eligible based on patient's age to complete this topic [facility]-IPV Vaccines Aged Out No longer e ligible based on patient's age to complete this topic [facility]-Rotavirus Vaccines Aged Out No lo nger eligible based on patient's age to complete this topic Insurance [employer] Care Teams Home Care Liaison Relationship Specialty Start Date End Date Sebas Campbell MD [address] [place] [id number] PCP - General 08/02/20
--- OUTSIDE RECORDS SUMMARY | 2024-12-12 11:53 | XMS_ITS | Clinical Summary ---
Author Organization [facility] Address [address] [place] [address] Care Team Providers Care Tower Loader Operator Name Role Phone Sebas Campbell MD Primary Care Provider [phone] Allergies No known active allergies Medications HYDROcodone-rea taminophen (NORCO) 10-325 MG per tablet Take 1 tablet by mouth Every 6 (Six) Hours As Needed for Moderate Pain . Active busPIRone (BUSPAR) 10 MG tablet Take 10 mg by mouth 3 (Three) Times a Day. Active desvenlafaxine (PRISTIQ) 50 MG 24 hr tablet Take 50 mg by mouth Daily. Active estradiol (ESTRACE) 1 MG tablet Take 1 mg by mouth Daily. Active omeprazole (priLOSEC) 40 MG capsule Take 40 mg by mouth Daily. Active montelukast (SINGULAIR) 10 MG tablet Take 10 mg by mouth Every Night. Active atorvastatin (LIPITOR) 10 MG tablet Take 10 mg by mouth Daily. Active furosemide (LASIX) 40 MG tablet Take 40 mg by mouth 2 (Two) Times a Day. Active losartan (COZAAR) 100 MG tablet Take 100 mg by mouth Daily. 10/31/2019 Active potassium chloride (K-DUR,KLOR-CON ) 20 MEQ CR tablet Take 20 mEq by mouth Daily. 10/31/2019 Active meloxicam (MOBIC) 15 MG tablet Take 15 mg by mouth Daily. Active Active Problems Problem Noted Date Diagnosed Date HTN (hypertension) HLD (hyperlipidemia) Shortness of breath Morbid obesity with BMI of 40.0-44.9, adult Superficial thrombosis of leg Overview (11/15/2019): Not DVT, wore compression stockings Lower extremity edema Acid reflux Overview (11/15/2019): remote EGD with benign polyps and hiatal hernia, controlled on omeprazole, S/P cholecystectomy Overview (11/15/2019): sludge IBS (irritable bowel syndrome) Overview (11/15/2019): diarrhea and constipation Back pain Arthritis Overview (11/15/2019): hips, neck and back- takes meloxicam daily, has had injections in knee and back in the past Anxiety Migraines Overview (11/15/2019): excedrine prn Former smoker Chronic narcotic use Family History Medical History Relation Name Comments Cancer Father Leukemia Cancer Mother Colon Cancer Paternal Grandfather Lung Cancer Paternal Grandmother Brain Relation Name Status Comments Father Alive Mother Paternal Grandfather Paternal Grandmother Social History Tobacco Use Types Packs/Day Years Used Date Smoking Tobacco: Former Cigarettes 1 10 2004 Smokeless Tobacco: Never Alcohol Use Standard Drinks/Week Comments Never 0 (1 standard drink = 0.6 oz pur e alcohol) AUDIT-C Answer Date Recorded Q1: How often do you have a drink containing alc ohol? Never 10/03/2019 Average Number of Drinks Not on file 020 Frequency of Binge Drinking Not on file 09/19 Abuse Screen Answer Date Recorded Unsafe at Home or Work/School Not on file Feels Threatened by Someone? Not on file 02/2023 Does Anyone Keep You from Co ntacting Others or Doint Things Outside the Home? Not on file 12/31/2022 Physical Sign of Abuse Present Not on file 1 Housing Stability Answer Date Recorded Current Living Arrangements Not on file 12/20 Potentially Unsafe Housing Conditions Not on girma e 12/31/2022 Family and Community Support Answer Abdullahi e Recorded Help with Day-to-Day Activities Not on file 12/31/2022 Lonely or Isolated Not on file 12/31/2022 Employment Answer Date Recorded Do you want help finding or keeping work or a elise b? Not on file 12/31/2022 Disabilities Answer Date Recorded Concentrating, Remembering, or Making Decisions Difficulty Not on file 12/31/2022 Doing Errands Independently Difficulty Not on fi le 12/31/2022 Education Answer Date Recorded Help with school or training? Not on file Preferred Language Not on file 12/31/2022 Comments Unknown Sex and Gender Information Value Date Recorded Sex Assigned at Not on file Legal Sex Female 7:15 AM EDT Gender Identity Not on file Sexual Orientation Not on file Last Filed Vital Signs Vital Sign Reading Time Taken Comments Blood Pressure 112/58 11/15/2019 11:45 AM EDT Pulse 72 11/15/2019 11:45 AM EDT Temperature 36.7 C (98 F) 11/15/2019 11:45 AM EDT Respiratory Rate 18 11/15/2019 11:45 AM EDT Oxygen Saturation 99% 11/15/2019 11:45 AM EDT Inhaled Oxygen Concentration - - Weight 124 kg (274 lb) 11/15/2019 11:45 AM EDT Height 166.4 cm (5' 5.5 ) 11/15/2019 11:45 AM ED T Body Mass Index 44.9 11/15/2019 11:45 AM EDT Plan of Treatment Health Maintenance Due Date Last Done Comments Annual Gynecologic Pelvic and Breast Exam 1961 TDAP/TD VACCINES (1 - Tdap) 1980 MAMMOGRAM 2001 COLOGUARD 2006 COLON CANCER SCREENING 5 YEAR SIGMOIDOSCOPY 2006 COLONOSCOPY 2006 COL[address]AL CANCER SCREENING 2006 CT COLONOGRAPHY 2006 FECAL OCCULT BLOOD TEST 2006 FIT Testing (1 year) 2006 Pneumococcal Vaccine 50+ (1 of 1 - PCV) 11/11/2011 ZOSTER VACCINE (1 of 2) 11/11/2011 ANNUAL PHYSICAL 10/03/2019 HEPATITIS C SCREENING 10/03/2019 LIPID PANEL 11/19/2020 11/20/2019 INFLUENZA VACCINE 10/20/2024 Procedures Procedure Name Priority Date/Time Associated Diagnosis Comments LIPID PANEL Routine 11/20/2019 Hypertension, unspecified type Hyperlipidemia, unspecified hyperlipidemia type Superficial thrombosis of lower extremity, unspecified laterality Migraine without status migrainosus, not intractable, unspecified migraine type Shortness of breath Morbid obesity with BMI of 40.0-44.9, adult Gastroesophageal reflux disease, esophagitis presence not specified Irritable bowel syndrome, unspecified type Back pain, unspecified back location, unspecified back pain laterality, unspecified chronicity Arthritis Lower extremity edema S/P cholecystectomy Anxiety Former smoker from Last 3 Months or Most Recently Relevant to Health Maintenance Results * Lipid Panel (11/20/2019) Blood us Kyaleen Holden PA-C LAB BLOOD ORDERABLES Final Result [facility] [address] [place] [id number], from Last 3 Months or Most Recently Relevant to Health Maintenance Insurance [facility] MEDICARE ADVANTAGE Care Teams Tower Loader Operator Relationship Specialty Start Date End Date Sebas Campbell MD [address] [facility] [address] [place] [id number] PCP - General Adolescent Medicine 09/19/19
[2024-12-12 12:17] LABS: Hematocrit 38.7 % (37.0-47.0); Hemoglobin 12.6 g/dL (12.2-16.2); Immature Granulocytes % 0.2 %; Mean Corpuscular HGB Conc 32.6 g/dL (31.8-35.4); Mean Corpuscular Hemoglobin 29.7 pg (27.0-31.2); Mean Corpuscular Volume 91.3 fl (81-99); Nucleated Red Blood Cells % 0 %; Platelet Count 222 K/mm3 (142-424); Red Blood Count 4.24 M/mm3 (4.20-5.40); Red Cell Distribution Width-SD 44.8 fL; White Blood Count 6.1 K/mm3 (4.8-10.8)
[2024-12-12 12:49] LABS: Albumin Level 4.2 g/dl (3.5-5.0); Chloride 102 mmol/L (98-107); Potassium 4.4 mmoL/L (3.5-5.1); Sodium 138 mmol/L (136-145)
[2024-12-12 12:52] LABS: Alanine Aminotransferase 11 U/L (12-78); Albumin/Globulin Ratio 1.7 (1.1-1.8); Alkaline Phosphatase 84 U/L (38-126); Anion Gap 9.4 mEq/L (5-15); Aspartate Amino Transferase 25 U/L (14-36); Bilirubin,Total 0.6 mg/dl (0.2-1.3); Blood Urea Nitrogen 12 mg/dl (7-17); Calcium 9.3 mg/dl (8.4-10.2); Carbon Dioxide 31 mmol/L (22.0-30.0); Cholesterol 217 mg/dl (140-200); Creatinine,Serum 0.60 mg/dl (0.52-1.04); Estimated Glomerular Filt Rate 101 ml/min (>60); GFR (African American) 122 ML/MIN (>60); Globulin 2.5 g/dL (1.3-3.2); Glucose 99 mg/dl (74-100); HDL Cholesterol 61 mg/dl (40-60); Total Protein,Serum 6.7 g/dl (6.3-8.2); Triglycerides 123 mg/dl (30-150)
[2024-12-12 13:22] LABS: Thyroid Stimulating Hormone 0.86 uIU/mL (0.465-4.68)
[2024-12-12 13:42] LABS: Vitamin B12 300 pg/mL (239-931)
[2024-12-12 18:37] LABS: Hemoglobin A1C 5.7 % (4.0-6.0)
== END 2024-12-12 23:59 | disposition home or self-care (01) ==
LOC: LAB 11:52
PROVIDERS: PCP Nurse Practitioner Family; Visit Provider Nurse Practitioner Family
DX: Z00.00 Encounter for general adult medical examination without abnormal findings (principal); R40.0 Somnolence
CPT/HCPCS: 36415; 80053; 80061; 82607; 83036; 84443; 85025

== ENCOUNTER 2025-01-08 12:11 | Outpatient (CLI) | payer MEDICARE, SELFPAY ==
--- NOTE | 2025-01-08 12:18 | XR_ITS ---
FINAL REPORT CLINICAL HISTORY: PERSISTENT COUGH COMPARISON: 12/25/2022 FINDINGS: 2 views of the chest were obtained . The heart is normal in size. The mediastinum is within normal limits. The lungs are clear. There is no pneumothorax. Osseous structures are unremarkable. IMPRESSION: No acute cardiopulmonary process. Reviewed, Interpreted and Dictated by Amanda Guerrero MD Transcribed by Iraida Oliver Authenticated and . [facility]
== END 2025-01-08 23:59 | disposition home or self-care (01) ==
LOC: RAD 12:13
PROVIDERS: PCP Nurse Practitioner Family; Visit Provider Nurse Practitioner Family
DX: R05.3 Chronic cough (principal)
CPT/HCPCS: 71046

== ENCOUNTER 2025-02-05 11:13 | Outpatient (CLI) | payer MEDICARE, SELFPAY ==
--- NOTE | 2025-02-05 11:19 | MM_ITS ---
PROCEDURE INFORMATION: Exam: MG Bilateral Screening 3D Mammography Exam date and time: 02/05/2025 11:19 AM Age: 64 years old Clinical indication: Screening examination. Her maternal aunt and maternal cousin had breast cancer. TECHNIQUE: Imaging protocol: Bilateral Screening tomosynthesis and 2D mammography including computer-aided detection (CAD) when performed. COMPARISON: 1. MG MM DIG SCREENING MAMM BI W/CAD 01/17/2020 8:40 AM 2. MG DMSB DIG MAMM-SCREEN NIKOLAS W/CAD 10/16/2016 9:15 AM 3. MG DMDXUR DIG MAMM-DX UNI-RT 05/31/2015 3:08 PM 4. MG DMSB DIG MAMM-SCREEN NIKOLAS 05/10/2015 9:21 AM FINDINGS: MAMMOGRAPHY: Breast composition: There are scattered areas of fibroglandular density. Mass: Question two masses/circumscribed asymmetries in the left central breast posteriorly measuring up to 0.5 cm, 9-10 cm from the nipple, and in the left breast medially measuring up to 0.3 cm, that is 7 cm from the nipple, CC view only. Architectural distortion: None. Calcifications: No suspicious calcifications. Asymmetric density: None. Skin thickening: None. Axillary adenopathy: None. IMPRESSION: Patient will be recalled for left diagnostic mammography with spot compression CC, full field lateral left sonography for further evaluation of questionable asymmetries. ASSESSMENT: BI-RADS Category 0: Incomplete: Need Additional Imaging Evaluation.
--- NOTE | 2025-02-05 11:25 | CT_ITS ---
FINAL REPORT CLINICAL HISTORY: RECURRENT SINUSITIES COMPARISON: None FINDINGS: The paranasal sinuses are well aerated. There is no fracture. There are no air-fluid levels. The right mastoid air cells are hypoplastic. IMPRESSION: Hypoplastic right mastoid air cells are present, without air-fluid levels noted in the paranasal sinuses. Reviewed, Interpreted and Dictated by Leo Cross MD Transcribed by Tara Escalante Authenticated and [facility]
--- NOTE | 2025-02-05 11:30 | XR_ITS ---
FINAL REPORT CLINICAL HISTORY: SCREENING COMPARISON: None FINDINGS: Using L1-4, the bone mineral density of the spine is 1.087 g/cm2, corresponding to T-score of 0.4. Using the left hip, the bone mineral density of the femoral neck is 0.981 g/cm2, corresponding to a T-score of 0.3. Using the right hip, the bone mineral density of the femoral neck is 0.829 g/cm2, corresponding to a T-score of -0.2. NOTE: T-score: Standard deviation compared with peak bone mass of young adult mean. *Following the recommendations of the International Society of Bone densitometry, classification of hip BMD is based on the lower of two T-scores; total hip or femoral neck. IMPRESSION: Normal bone mineral density of the bilateral hips and lumbar spine. Reviewed, Interpreted and Dictated by Leo Cross MD Transcribed by Tara Escalante Authenticated and [facility]
--- OUTSIDE RECORDS SUMMARY | 2025-02-05 16:44 | XMS_ITS | Clinical Summary ---
Author Organization [facility] Address [address] [place] [address] Care Team Providers Care Social Science Manager Name Role Phone Sebas Campbell MD Primary Care Provider [phone] Allergies No known active allergies Medications Multiple [...] Take by mouth. 07/10/2013 Active HYDROcodone-acet aminophen (Muir) 10-325 MG tablet Take by mouth. 06/09/2013 [...] Date Last Done Comments [facility]-Depression Screening 1961 [facility]-/Child/Adol SDOH Screenings 1961 [facility]- SDOH Screenings 11/11/1979 [facility]-Adult SDOH Screenings 11/11/1979 [facility]-DTaP,Tdap,and Td Vaccines (1 - Tdap) 1980 [facility]-Pap Smear 1982 [facility]-Cervical Cancer Screening 11/11/1991 [facility]-HPV/Cotest 11/11/1991 CT Colonography 2006 Colonoscopy 2006 FIT-DNA 2006 FIT 2006 FOBT 2006 Sigmoidoscopy 2006 [facility]-Colorectal Cancer Screening 2006 [facility]-Pneumococcal Vaccine: 50+ Years (1 of 1 - PCV) 11/11/2011 [facility]-Zoster Vaccines (1 of 2) 11/11/2011 [id number] Vaccine (1 - 2024- season) 2024 [facility]-Influenza Vaccine (#1) 11/20/202412/13, 03/02/2019, [...] this topic Insurance [employer] Care Teams Social Science Manager Relationship Specialty Start Date End Date Sebas Campbell MD [address] [place] [id number] PCP - General 08/02/20
--- OUTSIDE RECORDS SUMMARY | 2025-02-05 16:45 | XMS_ITS | Clinical Summary ---
Author Organization [employer] ([place], [place], [place], [place], [place]) Address [address] [place] [address] Care Team Providers Care Anode Worker Name Role Phone Unavailable Primary Care Provider Unavailabl e Social History Tobacco Use Types Packs/Day Years Used Date Smoking Tobacco: Never Assessed Comments Unknown Sex and Gender Information Value Date Recorded Sex Assigned at Female 09/16/2021 4:17 PM CDT Legal Sex Female 4:17 PM CDT Gender Identity Female 09/16/2021 4:17 PM CDT Sexual Orientation Not on file Plan of Treatment Not on file
--- OUTSIDE RECORDS SUMMARY | 2025-02-05 16:45 | XMS_ITS | Referral Summary ---
Author Organization [employer] ([place], [place], [place], [place], [place]) Address [address] [place] [address] Care Team Providers Care Mill Manager Name Role Phone Unavailable Primary Care Provider [...]
--- OUTSIDE RECORDS SUMMARY | 2025-02-05 16:45 | XMS_ITS | Encounter Summary ---
Author Organization [employer] ([place], [place], [place], [place], [place]) Address [address] [place] [address] Care Team Providers Care Advanced Practice Nurse Psychotherapist Name Role Phone Unavailable Primary Care Provider Unavailabl e Encounter Details Date Type Department Care Team (Late st Contact Info) Description 02/04/2021 Transcribed Document [facility] [place] [address] ProviderDane MD [address] [place] [address] Social History Tobacco Use Types Packs/Day Years Used Date Smoking Tobacco: Never Assessed Comments Unknown Sex and Gender Information Value Date Recorded Sex Assigned at Female 09/16/2021 4:17 PM CDT Legal Sex Female 4:17 PM CDT Gender Identity Female 09/16/2021 4:17 PM CDT Sexual Orientation Not on file documented as of this encounter Miscellaneous Notes * Cerner Conversion Note - Historical ProviderMD - 02/04/2021 8:58 AM JUICE WEIGHER CR Chest 2 Vws Ordered: 02/03/2021 Auth (Verified) Reason for Exam: pain 02/03/2021 23:08 02/04/2021 08:58 (MELINDA ANDERSON, CHASITY) Reviewed by Provider, No further action required X1 - no acute Electronically signed by Fran Gomez Conversion Research And Development Scientist Cerner at 07/07/2022 10:48 AM CDT documented in this encounter Plan of Treatment Not on file documented as of this encounter Visit Diagnoses Not on filedocumented in this encounter
--- OUTSIDE RECORDS SUMMARY | 2025-02-05 16:46 | XMS_ITS | Encounter Summary ---
Author Organization [employer] ([place], [place], [place], [place], [place]) Address [address] [place] [address] Care Team Providers Care Velocity Shooter Name Role Phone Unavailable Primary Care Provider Unavailabl e Encounter Details Date Type Department Care Team (Late st Contact Info) Description 02/03/2021 Transcribed Document [facility] [place] Medicine [facility] [place] [address] ProviderDane MD [address] [place] [address] Social History Tobacco Use Types [...] Cerner Conversion Note - Historical ProviderMD - 02/03/2021 7:53 PM ADVISORY SERVICES ASSOCIATE Pain Assessment Entered On: 02/03/2021 21:34 EST Performed On: 02/03/2021 20:26 EST by Michelle Singh NON EMP RN Intervention Information: HYDROmorphone Performed by Michelle Singh NON EMP RN on 02/03/2021 19:56:00 EST HYDROmorphone,1mg IV Push,Peripheral Line 1 Pain Assessment Pain Assessment : Follow-up assessment Pain Scale Used : 0-10 Scale Michelle Singh NON EMP RN - 02/03/2021 21:34 EST Pain Scale Intensity : 3 Michelle Singh NON EMP RN - 02/03/2021 21:34 EST Image 4 - Images currently included in the form version of this document have not been included in the text rendition version of the form. Electronically signed by Tin oGmez Conversion Ornamental Metal Worker Apprentice Cerner at 07/07/2022 10:58 AM CDT documented in this encounter Plan of Treatment Not on file documented as of this encounter Visit Diagnoses Not on filedocumented in this encounter
--- OUTSIDE RECORDS SUMMARY | 2025-02-05 16:47 | XMS_ITS | Encounter Summary ---
Author Organization [employer] ([place], [place], [place], [place], [place]) Address [address] [place] [address] Care Team Providers Care Employee Relations Assistant Name Role Phone Unavailable Primary Care Provider Unavailabl e Encounter Details Date Type Department Care Team (Late st Contact Info) Description 02/03/2021 Transcribed Document [facility] [address] [place] [address] ProviderDane MD [address] [place] [address] Social History Tobacco Use Types [...] Conversion Note - Historical ProviderMD - 02/03/2021 4:02 PM COTTON TIPPER [place] Suicide Severity Rating Scale (C-SSRS) Entered On: 02/03/2021 17:30 EST Performed On: 02/03/2021 17:29 EST by SUNNY PRICE RN [place] Suicide Severity Rating Scale (C-SSRS) CSSRS Past Month Wish to be : No CSSRS Past Month Suicidal Thoughts : No CSSRS Lifetime Suicide Behavior : No Suicide Severity Rating Score : 0 Suicide Severity Rating : No Additional Care Required at this time SUNNY PRICE RN - 02/03/2021 17:29 EST Electronically signed by [facility] Conversion Applied Biology Professor Cerner at 07/07/2022 10:55 AM CDT documented in this encounter Plan of Treatment Not on file documented as of this encounter Visit Diagnoses Not on filedocumented in this encounter
--- OUTSIDE RECORDS SUMMARY | 2025-02-05 16:47 | XMS_ITS | Encounter Summary ---
Author Organization [employer] ([place], [place], [place], [place], [place]) Address [address] [place] [address] Care Team Providers Care Registrar Museum Name Role Phone Unavailable Primary Care Provider Unavailabl e Encounter Details Date Type Department Care Team (Late st Contact Info) Description 02/03/2021 Transcribed Document [facility] [place] [address] ProviderDane MD [address] [place] [address] Social History Tobacco Use Types [...] Conversion Note - Historical ProviderMD - 02/03/2021 8:39 PM BASIC ACOUSTIC ANALYST Electronically signed by Jason [facility] Conversion Alberene Stone Setter Cerner at 07/07/2022 10:44 AM CDT documented in this encounter Plan of Treatment Not on file documented as of this encounter Visit Diagnoses Not on filedocumented in this encounter
--- OUTSIDE RECORDS SUMMARY | 2025-02-05 16:47 | XMS_ITS | Encounter Summary ---
Author Organization [employer] ([place], [place], [place], [place], [place]) Address [address] [place] [address] Care Team Providers Care Pool Hand Name Role Phone Unavailable Primary Care Provider Unavailabl e Encounter Details Date Type Department Care Team (Late st Contact Info) Description 02/03/2021 Transcribed Document [facility] – [place] Family Medicine [facility] [place] [address] ProviderDane MD [address] [place] [address] Social History Tobacco Use Types Packs/Day Years Used Date Smoking Tobacco: Never Assessed Comments Unknown Sex and Gender Information Value Date Recorded Sex Assigned at Female 09/16/2021 4:17 PM CDT Legal Sex Female 4:17 PM CDT Gender Identity Female 09/16/2021 4:17 PM CDT Sexual Orientation Not on file documented as of this encounter Miscellaneous Notes * Cerner Conversion Note - Dane Agustin MD - 02/03/2021 9:35 PM [employer] [facility] [place] [address] AMILCAR ATKINSON :1960 Visit Time:02/03/2021 Your Visit Summary Your Care Team Primary Provider: BERNICE HATHAWAY Secondary Provider: Your Diagnosis Abdominal pain Abnormal laboratory findings Encounter for medical screening examination Hepatitis Medical screening exam Nausea Vomiting Medical Information You may obtain a copy of your Emergency Department visit from Medical Records by calling the hospital phone number listed above and asking to be directed to the Medical Records Department. If you had special tests, such as EKG???s or X-rays, the interpretation of your tests given to you by the Emergency Department Physician is a preliminary report. Some fractures and illnesses fail to show up on preliminary tests. These will be reviewed again and we will call you if there are any new suggestions. If your symptoms continue notify your physician. After you leave, you should follow the instructions provided. What to do next Follow-Up Appointments Follow Up with Return to Emergency Department When Within As needed Follow Up with Follow up with specialist When Within 2 to 3 days Follow Up with Follow up with primary care provider When Within 2 to 3 days Follow Up with NO PRIM DR MCCARTHY When Within 2 to 3 days Allergies No Known Allergies Immunizations This Visit No Immunizations Found Medications What How Much When Instructions Next Dose acetaminophen-hydrocodone ([place] 10 mg-325 mg oral tablet) 1 Tablet(s) Oral Every 6 Hours as needed for for pain diazepam (Valium 10 mg oral tablet) 1 Tablet(s) Oral Three Times A Day estradiol (estradiol 1 mg oral tablet) 1 Tablet(s) Oral Every Day meloxicam (meloxicam 15 mg oral tablet) 1 Tablet(s) Oral Every Day omeprazole (omeprazole 20 mg oral delayed release capsule) 1 Capsule(s) Oral Every Day The home medications listed are only as accurate as the information you provided. Please continue taking all of your medications prescribed by your Primary Care Provider unless specifically told to change or discontinue the medication. Please direct any questions regarding your home medications to your Primary Care Provider. Take your medications faithfully. Do NOT skip medication. Do NOT stop taking medications without the direction of a physician. Carry a list of your medications with you at all times, and take this medication list with you to your first follow up visit. Report any side effects. Avoid herbal remedies unless discussed with your physician. As part of your treatment plan, your physician may have prescribed a limited course of a controlled substance. This medication may be given to help people with moderate or severe pain or for other medical conditions, but there are risks involved with treatment. Common side effects may include nausea, constipation, drowsiness, sweating, itching, dry mouth, and rash. More serious side effects may include cognitive and motor impairment, like problems with thinking, concentrating, alertness, and movement (e.g. slowed reflexes), and driving and operating heavy machinery can be dangerous. It is important for you to talk to your physician if you have these side effects or questions. These controlled substances can produce physical dependence and be habit-forming if taken for an extended period of time, which means that the body has gotten used to them and may experience withdrawal symptoms if they are abruptly stopped. Withdrawal symptoms can include runny nose, sweating, goose bumps, diarrhea, abdominal cramping, rapid heartbeat, difficulty sleeping, and nervousness. Please dispose of unused and medications per pharmacy guidance. Test Results Laboratory or Other Results This Visit (last charted value for your 02/03/2021 visit) Hematology 02/03/2021 4:48 PM WBC: 7.4 K/uL -- Normal range between ( 4.5 and 10.5 ) RBC: 4.05 Million/uL -- Normal range between ( 3.93 and 5.22 ) Hct: 34.2 % -- Normal range between ( 34.1 and 44.9 ) Hgb: 11.8 g/dL -- Normal range between ( 11.2 and 15.7 ) Platelet Count: 214 K/uL -- Normal range between ( 163 and 369 ) MCH: 29.1 pg -- Normal range between ( 25.6 and 32.2 ) MCHC: 34.5 Gram/dL -- Normal range between ( 32.2 and 36.5 ) MCV: 84.4 fL -- Normal range between ( 79.0 and 94.8 ) Slide Review: Technologist Eos %: 1.1 % -- Normal range between ( 0.0 and 7.0 ) Target Cells: 1+ Hughes #: 0.67 K/uL -- Normal range between ( 0.16 and 1.00 ) Eos #: 0.08 x10(3)/uL -- Normal range between ( 0.00 and 0.80 ) Hughes %: 9.1 % -- Normal range between ( 3.0 and 9.0 ) Baso %: 0.7 % -- Normal range between ( 0.0 and 1.5 ) RBC Morphology: Abnormal Baso #: 0.05 x10(3)/uL -- Normal range between ( 0.00 and 0.20 ) RDW: 22.3 % -- Normal range between ( 11.7 and 14.9 ) Neut %: 75.5 % -- Normal range between ( 34.0 and 71.0 ) Ovalocytes: 1+ Neut #: 5.59 K/uL -- Normal range between ( 1.56 and 6.13 ) Anisocytosis: 2+ Lymph %: 13.1 % -- Normal range between ( 19.3 and 53.1 ) Platelet Ct Estimate: Adequate Lymph #: 0.97 x10(3)/uL -- Normal range between ( 1.00 and 3.90 ) MPV: 12.3 fL -- Normal range between ( 9.4 and 12.4 ) IG#: 0.04 x10(3)/uL -- Normal range between ( 0.00 and 0.05 ) IG%: 0.50 % -- Normal range between ( 0.00 and 0.60 ) Urinalysis 02/03/2021 4:48 PM Ur RBC: 0-2 /HPF Urine Nitrite: Negative Urine Leukocyte Esterase: Small Urine Appearance: Turbid Urine Glucose Dipstick: Negative Urine Blood Dipstick: Negative Urine Urobilinogen Dipstick: 1.0 EU/dL Urine Protein Dipstick: Negative Ur Bacteria: 2+ Ur Squamous Epithelial Cells: 2-5 /HPF Urine Color: [place] Ur WBC: 5-10 /HPF Urine Ketones Dipstick: Trace Ur Mucous: 3+ Urine pH Dipstick: 6.0 -- Normal range between ( 6.0 and 8.0 ) Urine Bilirubin Dipstick: Large Urine Specific [place]: 1.016 -- Normal range between ( 1.005 and 1.030 ) Urine Type.: U CleanCatch Urine Culture if Indicated: Not Indicated General Chemistry 02/03/2021 7:37 PM Lactic Acid Level: 0.4 mmol/L -- Normal range between ( 0.4 and 2.0 ) 02/03/2021 4:48 PM Creatinine Level: 0.80 mg/dL -- Normal range between ( 0.55 and 1.02 ) Sodium Level: 134 mmol/L -- Normal range between ( 136 and 146 ) Potassium Level: 4.3 mmol/L -- Normal range between ( 3.5 and 5.1 ) Chloride Level: 101 mmol/L -- Normal range between ( 102 and 112 ) Carbon Dioxide Level: 26 mmol/L -- Normal range between ( 21 and 32 ) Anion Gap: 11 -- Normal range between ( 9 and 20 ) Bilirubin Total: 16.3 mg/dL -- Normal range between ( 0.2 and 1.2 ) A/G Ratio: 0.5 -- Normal range between ( 1.1 and 2.5 ) ALT: 633 Units/Liter -- Normal range between ( 13 and 56 ) AST: 934 Units/Liter -- Normal range between ( 5 and 37 ) Globulin: 4.4 Gram/dL -- Normal range between ( 1.5 and 4.5 ) Alk Phos: 180 Units/Liter -- Normal range between ( 27 and 136 ) Bun/Creatinine: 8.8 -- Normal range between ( 8.0 and 20.0 ) Calcium Level: 8.4 mg/dL -- Normal range between ( 8.4 and 10.1 ) eGFR : >60 mL/min/1.73m2 eGFR NonAfrican: >60 mL/min/1.73m2 Glucose Level: 121 mg/dL -- Normal range between ( 74 and 106 ) Blood Urea Nitrogen: 7 mg/dL -- Normal range between ( 7 and 22 ) Protein Total: 6.6 Gram/dL -- Normal range between ( 6.4 and 8.2 ) Albumin Level: 2.2 Gram/dL -- Normal range between ( 3.4 and 5.0 ) Education Materials Nausea and Vomiting, Adult Nausea is the feeling that you have an upset stomach or that you are about to vomit. Vomiting is when stomach contents are thrown up and out of the mouth as a result of nausea. Vomiting can make you feel weak and cause you to become dehydrated. Dehydration can make you feel tired and thirsty, cause you to have a dry mouth, and decrease how often you urinate. Older adults and people with other diseases or a weak disease-fighting system (immune system) are at higher risk for dehydration. It is important to treat your nausea and vomiting as told by your health care provider. Follow these instructions at home: Watch your symptoms for any changes. Tell your health care provider about them. Follow these instructions to care for yourself at home. Eating and drinking ??? Take an oral rehydration solution (ORS). This is a drink that is sold at pharmacies and retail stores. ??? Drink clear fluids slowly and in small amounts as you are able. Clear fluids include water, ice chips, low-calorie sports drinks, and fruit juice that has water added (diluted fruit juice). ??? Eat bland, obxd-fo-zyhauq foods in small amounts as you are able. These foods include bananas, applesauce, rice, lean meats, toast, and crackers. ??? Avoid fluids that contain a lot of sugar or caffeine, such as energy drinks, sports drinks, and soda. ??? Avoid alcohol. ??? Avoid spicy or fatty foods. General instructions ??? Take iocr-jgr-bjipkti and prescription medicines only as told by your health care provider. ??? Drink enough fluid to keep your urine pale yellow. ??? Wash your hands often using soap and water. If soap and water are not available, use hand production manager. ??? Make sure that all people in your household wash their hands well and often. ??? Rest at home while you recover. ??? Watch your condition for any changes. ??? Breathe slowly and deeply when you feel nauseated. ??? Keep all follow-up visits as told by your health care provider. This is important. Contact a health care provider if: ??? Your symptoms get worse. ??? You have new symptoms. ??? You have a fever. ??? You cannot drink fluids without vomiting. ??? Your nausea does not go away after 2 days. ??? You feel light-headed or dizzy. ??? You have a headache. ??? You have muscle cramps. ??? You have a rash. ??? You have pain while urinating. Get help right away if: ??? You have pain in your chest, neck, arm, or jaw. ??? You feel extremely weak or you faint. ??? You have persistent vomiting. ??? You have vomit that is bright red or looks like black coffee grounds. ??? You have bloody or black stools or stools that look like tar. ??? You have a severe headache, a stiff neck, or both. ??? You have severe pain, cramping, or bloating in your abdomen. ??? You have difficulty breathing, or you are breathing very quickly. ??? Your heart is beating very quickly. ??? Your skin feels cold and clammy. ??? You feel confused. ??? You have signs of dehydration, such as: ? Dark urine, very little urine, or no urine. ? Cracked lips. ? Dry mouth. ? Sunken eyes. ? Sleepiness. ? Weakness. These symptoms may represent a serious problem that is an emergency. Do not wait to see if the symptoms will go away. Get medical help right away. Call your local emergency services (911 in the [place] Do not drive yourself to the hospital. Summary ??? Nausea is the feeling that you have an upset stomach or that you are about to vomit. As nausea gets worse, it can lead to vomiting. Vomiting can make you feel weak and cause you to become dehydrated. ??? Follow instructions from your health care provider about eating and drinking to prevent dehydration. ??? Take klux-oxm-hwnopcr and prescription medicines only as told by your health care provider. ??? Contact your health care provider if your symptoms get worse, or you have new symptoms. ??? Keep all follow-up visits as told by your health care provider. This is important. This information is not intended to replace advice given to you by your health care provider. Make sure you discuss any questions you have with your health care provider. Document Revised: 06/30/2019 Document Reviewed: 08/16/2018 [employer] Patient Education ?? 2020 [employer]. Hepatitis B Hepatitis B is a liver infection that is caused by the hepatitis B virus (HBV). HBV causes inflammation in the liver. There are two kinds of hepatitis B: ??? Acute hepatitis B. This lasts for 6 months or less. ??? Long-term (chronic) hepatitis B. This lasts for more than 6 months. Chronic hepatitis B can lead to: ? A condition where the liver cannot work anymore (liver failure). ? Scarring of the liver (cirrhosis). ? Liver cancer. Most adults with acute hepatitis B do not develop chronic hepatitis B. Babies and young children who get hepatitis B are more likely to develop chronic hepatitis B than adults. The HBV vaccine can prevent this infection. What are the causes? This condition is caused by HBV. The virus may spread from person to person (is contagious) through: ??? Contact with the body fluids of an infected person. This includes blood, breast milk, tears, saliva, semen, and vaginal fluids. ??? Childbirth. A woman who has hepatitis B can pass it to her baby during . What increases the risk? The following factors may make you more likely to develop this condition: ??? Having contact with needles or syringes that have HBV on them (are contaminated). Contact may happen while: ? Receiving acupuncture. ? Getting a tattoo. ? Getting a body piercing. ? Injecting drugs. ??? Having sex with someone who is infected and not using a condom. The virus can be passed through vaginal, anal, or oral sex. ??? Living with or having close contact with a person who has hepatitis B. ??? Working in a job that involves contact with blood or body fluids, such as in health care. ??? Traveling to a country where hepatitis B is common. ??? Receiving treatment to filter your blood (kidney dialysis). ??? Having a history of: ? Blood transfusion. This is receiving donated blood. ? Organ transplantation. This is receiving a donated body organ from another person. What are the signs or symptoms? Symptoms of this condition may include: ??? Loss of appetite. ??? Tiredness (fatigue). ??? Nausea or vomiting. ??? Stomach pain. ??? Dark yellow urine. ??? Your skin or the white parts of your eyes turning yellow (jaundice). ??? A fever. ??? Light-colored or cotton stool. ??? Joint pain. Often, hepatitis B causes no symptoms. How is this diagnosed? This condition is diagnosed based on: ??? A physical exam. ??? Your medical history. ??? Blood tests. How is this treated? Treatment for chronic hepatitis B may include antiviral medicine. This medicine may help: ??? Lower your risk of liver failure, cirrhosis, or liver cancer. ??? Lower your ability to pass HBV to others. You will need to avoid taking certain medicines that can be hard for the liver to break down (metabolize). This helps prevent further damage to your liver. Follow these instructions at home: Medicines ??? Take lpfc-zoc-frpwapq and prescription medicines only as told by your health care provider. ??? If you were prescribed an antiviral medicine, take it as told by your health care provider. Do not stop using the antiviral even if you start to feel better. ??? Do not take any: ? Lbdd-cwa-slhepnq medicines that contain acetaminophen. ? New medicines, including efbj-iwg-dhyzmio medicines or supplements, unless approved by your health care provider. Activity ??? Rest as needed. ??? Do not have sex unless approved by your health care provider. ??? Return to your normal activities as told by your health care provider. Ask your health care provider what activities are safe for you. ??? Avoid swimming and using hot tubs until your health care provider approves. ??? Ask your health care provider when you may return to school or work. Eating and drinking ??? Eat a balanced diet with plenty of fruits and vegetables, whole grains, and lean meats or non-meat proteins (such as beans or tofu). ??? Drink enough fluids to keep your urine pale yellow. ??? Do not drink alcohol. General instructions ??? Do not share toothbrushes, nail clippers, or razors. ??? Wash your hands often with soap and water for at least 20 seconds. If soap and water are not available, use hand production manager. ??? Tell your health care provider about all the people you live with or with whom you have close contact. Your health care provider may recommend that they receive the HBV vaccine. ??? Cover any cuts or open sores on your skin to prevent spreading HBV. ??? Follow other instructions from your health care provider about how to avoid spreading HBV. ??? Keep all follow-up visits as told by your health care provider. This is important. How is this prevented? Get the HBV vaccine. This helps prevent the hepatitis B infection. ??? If you have been recently exposed to HBV, your health care provider may recommend that you get one of the following to help prevent infection: ? Human immunoglobulin. This is a blood protein that fights germs in the body. ? The HBV vaccine. Even if you got this vaccine as a child, a booster shot may help. ??? Wash your hands often with soap and water for at least 20 seconds. ??? Use a condom every time you have vaginal, oral, or anal sex. Be sure to use it correctly each time. ? Both females and males should wear condoms. ? Condoms should be kept in place from the beginning to the end of sexual activity. ? Latex condoms should be used, if possible. These offer the best protection. ??? Do not share needles or syringes. ??? Avoid handling blood or other body fluids without gloves or other protection. ??? Avoid getting tattoos or piercings in shops and other places that are not clean. Where to find more information ??? Centers for Disease Control and Prevention: www.cdc.gov/hepatitis Contact a health care provider if you: ??? Develop a rash. ??? Develop jaundice, or your chronic jaundice is more severe. ??? Have a fever. Get help right away if you: ??? Are unable to eat or drink. ??? Have a fever as well as nausea and vomiting. ??? Feel confused. ??? Have trouble breathing. ??? Have swelling of your skin, throat, mouth, or face. ??? Have a seizure. ??? Become very sleepy or have trouble waking up. ??? Have a swollen stomach. Summary ??? Hepatitis B is a liver infection that is caused by the hepatitis B virus (HBV). There are two kinds of hepatitis B, acute and chronic. ??? HBV may spread from person to person (is contagious). ??? Do not take any new medicines, including qujr-gpk-vavkbix medicines or supplements, unless approved by your health care provider. ??? To help prevent hepatitis B, wash your hands often with soap and water for at least 20 seconds. If soap and water are not available, use hand production manager. This information is not intended to replace advice given to you by your health care provider. Make sure you discuss any questions you have with your health care provider. Document Revised: 12/12/2019 Document Reviewed: 11/06/2019 [employer] Patient Education ?? 2020 [employer] Emergency Awareness and Preventative Care STROKE is an EMERGENCY Every Minute Counts Act FAST and Check for these signs: FACE Does the face look uneven? ARM Does one arm drift down? SPEECH Does their speech sound strange? TIME Call at any sign of stroke Stroke Risk Factors Atrial Fibrillation (irregular heartbeat) Diabetes Family history of stroke Heart Disease Heavy alcohol use High Blood Pressure High Cholesterol Physical inactivity and obesity Smoking Cigarette Smoking The facts are clear, cigarette smoking will shorten your life. Smoking can cause many illnesses along the way. As a healthcare provider, we recommend that you stop smoking. Assistance with quitting is available by contacting 4-023-TQUY-NOW. This is a free resource providing counseling, support, and referral. Or you may contact your personal physician. National Suicide Prevention Lifeline: The National Suicide Prevention Lifeline is a national network of local crisis centers that provides free and confidential emotional support to people in suicidal crisis or emotional distress 24 hours a day, 7 days a week. Don't Wait! Stop a Heart Attack Before it Starts What is a heart attack? A heart attack is damage or to a part of the heart from severely decreased or lack of blood flow to the heart. Over time, arteries can become narrow from the buildup of fat and cholesterol, which is called plaque. The plaque can rupture causing a blood clot to form. When the blood clot forms, the artery can become severely narrowed or completely blocked, causing a heart attack. Heart attack is the leading cause of in the [place]. 85% of muscle damage occurs within the first 2 hours. Delay in the recognition of heart attack symptoms increases the chances of . Know the early symptoms of a heart attack: Nausea Feeling of fullness in chest Jaw Pain Pain that travels down one or both arms Fatigue/being tired Anxiety Back Pain Chest pressure, squeezing, or discomfort Shortness of breath Sweating, or a cold sweat Feeling of impending doom There are unusual signs of a heart attack, too! Women, the elderly, and diabetics may present with atypical symptoms: Fainting/dizziness Weakness Confusion Risk Factors for a Heart Attack Some heart disease risk factors, such as age and family history, cannot be changed. Others, like smoking and lack of exercise, can be changed. Smoking High Cholesterol High Blood Pressure Family History Obesity Age Gender (Males are at higher risk) Lack of Exercise Diabetes Diet Stress Excessive Alcohol Intake If you or someone you know is experiencing the signs and symptoms of a heart attack, DON???T DELAY. Call immediately and seek help. If someone collapses, perform CPR! Do not attempt to drive if you are having symptoms of heart attack. Hands-Only CPR Why Hands-Only CPR? Hands-Only CPR has been shown to be as effective as conventional CPR for cardiac arrests that occur outside of a hospital. Survival depends on immediately receiving CPR from someone nearby. How do you perform Hands-Only CPR? There are two easy steps: Call if you see a teen or adult collapse Push hard and fast in the center of the chest at a beat of 100 beats per minute. Save a life! 4 WAYS TO GET AHEAD OF SEPSIS SEPSIS is a MEDICAL EMERGENCY. Time matters! Infections put you and your family at risk for a life-threatening condition called sepsis. Sepsis is the body's extreme response to an infection. It is life-threatening, and without timely treatment, sepsis can rapidly lead to tissue damage, organ failure, and . Sepsis happens when an infection you already have-in your skin, lungs, urinary tract or somewhere else-triggers a chain reaction throughout your body. 1 PREVENT INFECTIONS Take good care of chronic conditions. Talk to your doctor about getting the recommended vaccines. 2 PRACTICE GOOD HYGIENE Wash your hands frequently. Keep cuts or open sores clean and covered until they are healed. 3 KNOW THE SYMPTOMS Confusion or disorientation Shortness of breath High heart rate Fever, shivering, or feeling very cold Extreme pain or discomfort Clammy or sweaty skin 4 ACT FAST Get medical care IMMEDIATELY if you suspect sepsis or if you have an infection that is not getting better or is getting worse. To learn more about sepsis and how to prevent infections, visit www.cdc.gov/sepsis. The examination and treatment you have received in the Emergency Department has been done to provide an appropriate evaluation and stabilizing treatment on an emergency basis only. Given the limited resources, it is not meant to be a substitute for complete medical care. The follow-up doctor you named will receive a copy of your records and all test reports. IT IS IMPORTANT THAT YOU SCHEDULE A FOLLOW-UP APPOINTMENT AND ARE RE-EVALUATED. You should report any new complaints, symptoms, or remaining problems at that time. IT IS IMPOSSIBLE FOR THE EMERGENCY DEPARTMENT TO RECOGNIZE AND TREAT ALL ELEMENTS OF INJURY OR ILLNESS IN A SINGLE VISIT. If you have been referred to a specialist physician, it means that we believe you may have a condition that requires the expertise of a specialist. These physicians work in partnership with the hospital and have agreed to see referred patients in their office for further evaluation. KEEP IN MIND THAT THE SPECIALIST HAS HIS/HER OWN OFFICE POLICIES WHICH MAY REQUIRE PROPER INSURANCE OR PAYMENT UP FRONT BEFORE THE SPECIALIST WILL SEE YOU. It is your responsibility to call the specialist physician to make an appointment. We do not have the ability to refer patients to specialists/physicians that work with specific insurance companies. Please be advised that all financial charges or billing practices are determined by that practice, not the hospital. If your insurance company requires that you see a specialist from their approved list, it is your responsibility to contact your insurance company to make those arrangements. It is also your responsibility to follow any other requirements of your insurance company necessary to obtain coverage for claims submitted. We will bill your insurance; however, you are responsible today for any co-pay amounts. You will receive a separate bill for any services you may have received including: emergency, radiology, or pathology physicians. Patient Name:AMILCAR ATKINSON I have received this information and was given the opportunity to ask questions. Patient/Compliance Analyst Name: Patient/Compliance Analyst Signature: Relationship to Patient: Clinician/Hospital Compliance Analyst Signature: Please Provide a Telephone Number Where You Can Be Reached: Is it Permissible To Leave a Message? Date: documented in this encounter Plan of Treatment Not on file documented as of this encounter Visit Diagnoses Not on filedocumented in this encounter
--- OUTSIDE RECORDS SUMMARY | 2025-02-05 16:47 | XMS_ITS | Encounter Summary ---
Author Organization [employer] ([place], [place], [place], [place], [place]) Address [address] [place] [address] Care Team Providers Care Jack Strip Assembler Name Role Phone Unavailable Primary Care Provider Unavailabl e Encounter Details Date Type Department Care Team (Late st Contact Info) Description 02/03/[address] [facility] [place] On [facility] of [facility] [place] [address] ProviderDane MD [address] [place] [address] Social History Tobacco Use Types [...] Conversion Note - Historical ProviderMD - 02/03/2021 8:32 PM CORPORATE TRUST OFFICER Patient: AMILCAR ATKINSON Age: 60 years Sex: Female : 1960 Associated Diagnoses: Hepatitis; Nausea; Vomiting; Encounter for medical screening examination Author: BERNICE HATHAWAY APRN Basic Information Time seen: Immediately upon arrival. History source: Patient. Arrival mode: Private vehicle. History limitation: None. Additional information: Chief Complaint from Nursing Triage Note : Chief Complaint 02/03/2021 16:24 EST Chief Complaint Pt states sent by Dr. Bautista for admission r/t bilirubin 16. Hx hepatitis B. c/o RUQ abdominal pain 09/28. Discharged from [facility] 1 week ago for same. . History of Present Illness Patient presents to the ER for medical screening after having been told by her doctor to come to the ER for admission. Patient states that she had Covid in October and had continued to be sick. She states that they then found out that she had hepatitis B. Patient states that she has lost 60 pounds since being diagnosed. Patient states that she is able to eat small amounts of applesauce and drink small amounts but that is it. Patient states that her bilirubin was 11 last week and was told by her doctor that it was 16 today and that she needed to come to the hospital to be admitted. Patient states that she does feel like she is more jaundiced than normal. Patient is alert and in no acute distress. She denies any abdominal pain at this time. She states that she does take pain medicine at home. Patient is followed by Dr. Bautista, GI, in [place]. Review of Systems Constitutional symptoms: No fever, no chills. Skin symptoms: Jaundice. Respiratory symptoms: Negative except as documented in HPI. Cardiovascular symptoms: Negative except as documented in HPI. Gastrointestinal symptoms: Abdominal pain, nausea, vomiting, no diarrhea, no constipation. Genitourinary symptoms: Negative except as documented in HPI. Musculoskeletal symptoms: Negative except as documented in HPI. Neurologic symptoms: Negative except as documented in HPI. Psychiatric symptoms: Negative except as documented in HPI. Endocrine symptoms: Negative except as documented in HPI. Hematologic/Lymphatic symptoms: Negative except as documented in HPI. Allergy/immunologic symptoms: Negative except as documented in HPI. Health Status Allergies: Allergic Reactions (Selected) No Known Allergies. Medications: Per nurse's notes. Past Medical/ Family/ Social History Surgical history: colon polyps removed. neck surgery. blood vessel cyst removed from back of head., Reviewed as documented in chart. Family history: No family history items have been selected or recorded., Reviewed as documented in chart. Social history: Social & Psychosocial Habits Tobacco 02/08/2013 Tobacco Use Within Last Twelve Months No Smoking Status Former smoker Years of Tobacco Use 25 Packs/Tins Daily 1 Used Tobacco, but Quit Yes Month Tobacco Last Used quit in 2011 , Reviewed as documented in chart. Problem list: Active Problems (10) Arthritis Back pain CA - Cancer of ovary Deep vein thrombosis GERD - Gastro-esophageal reflux disease H/O: gallbladder disease H/O: hysterectomy Impaired vision Sinusitis Syncope , per nurse's notes. Physical Examination Vital Signs Vital Signs/Vital Measures 02/03/2021 19:42 EST Systolic Blood Pressure 136 mmHg Diastolic Blood Pressure 89 mmHg Peripheral Pulse Rate 61 bpm Respiratory Rate 18 Breaths/Min Oxygen Saturation 99 % 02/03/2021 17:43 EST Heart Rate Monitored 56 bpm LOW Oxygen Saturation 97 % Oxygen Therapy Mode Room air 02/03/2021 17:29 EST Oxygen Therapy Mode Room air 02/03/2021 16:24 EST Systolic Blood Pressure 139 mmHg Diastolic Blood Pressure 68 mmHg Temperature Source Oral Temperature Mode Fahrenheit Temperature, Fahrenheit 97.9 Deg F Clinical Temperature, C 36.6 Deg C Peripheral Pulse Rate 66 bpm Respiratory Rate 16 Breaths/Min Oxygen Saturation 99 % Oxygen Therapy Mode Room air . Measurements 02/03/2021 16:24 EST Height Source Stated Height Entry Format [place] Height/Length, VENEZUELAN (ft) 5 ft Height/Length VENE[place]UELAN 6 Inch CLINICALHEIGHT 167.64 cm [place] Body Weight 58.88 kg Weight Source, ED Critical estimated dosing weight Weight Entry Format [place] Weight Bel[place] lb 200 lb CLINICALWEIGHT 90.91 kg Body Surface Area (BSA) 2 m2 Body Mass Index 32.3 kg/m2 HI . Oxygen Saturation 02/03/2021 19:42 EST Oxygen Saturation 99 % 02/03/2021 17:43 EST Oxygen Saturation 97 % 02/03/2021 16:24 EST Oxygen Saturation 99 % . General: Alert, no acute distress. Skin: Warm, pink, intact. Cardiovascular: Regular rate and rhythm. Respiratory: Lungs are clear to auscultation, respirations are non-labored. Gastrointestinal: Soft, Non distended, Tenderness: Mild. Musculoskeletal: Normal ROM. Neurological: Alert and oriented to person, place, time, and situation. Lymphatics: No lymphadenopathy. Psychiatric: Cooperative. Medical Decision Making Differential Diagnosis: Abdominal pain, dehydration, electrolyte imbalance, urinary tract infection, viral syndrome, Hepatitis B. Orders Include Previous Orders (Selected) Inpatient Orders Ordered Cardiac Monitoring: Saline Lock Insert: Ordered (Exam Completed) CR Chest PA & Lat: Completed .Automated Differential: .RBC Morphology: .Urinalysis Microscopic: Broset Violence Assessment: CBC w/ Auto Diff: CMP Comprehensive Metabolic Panel: Dilaudid: 1 mg, IV Push, 1-Time ED Adult Fall Risk Assessment: ED Adult Triage: ED C-SSRS: ED Clinical Reconciliation: ED nursing assistant: EKG: Lactic Acid Level with Reflex if Indicated: Normal Saline Bolus: 1,000 mL, 1,000 mL/Hr, IV Piggyback, 1-Time Normal Saline Bolus: 500 mL, 500 mL/Hr, IV Piggyback, 1-Time Normal Saline Flush: 10 mL, IV Push, 1-Time Urinalysis UA Rflx Microscopic Cult if Ind: promethazine: 12.5 mg, IV Push, 1-Time, PRN: Nausea/Vomiting. Results review: Lab results : Lab Results 02/03/2021 19:37 EST Lactic Acid Level 0.4 mmol/L 02/03/2021 16:48 EST Sodium Level 134 mmol/L LOW Potassium Level 4.3 mmol/L Chloride Level 101 mmol/L LOW Carbon Dioxide Level 26 mmol/L Anion Gap 11 Glucose Level 121 mg/dL HI Blood Urea Nitrogen 7 mg/dL Creatinine Level 0.80 mg/dL eGFR >60 mL/min/1.73m2 eGFR NonAfrican >60 mL/min/1.73m2 Bun/Creatinine 8.8 Calcium Level 8.4 mg/dL Protein Total 6.6 Gram/dL Albumin Level 2.2 Gram/dL LOW Globulin 4.4 Gram/dL A/G Ratio 0.5 LOW Bilirubin Total 16.3 mg/dL HI Alk Phos 180 Units/Liter HI AST 934 Units/Liter HI ALT 633 Units/Liter HI WBC 7.4 K/uL RBC 4.05 Million/uL Hgb 11.8 g/dL Hct 34.2 % MCV 84.4 fL MCH 29.1 pg MCHC 34.5 Gram/dL Platelet Count 214 K/uL MPV 12.3 fL RDW 22.3 % HI Neut % 75.5 % HI Neut # 5.59 K/uL Lymph % 13.1 % LOW Lymph # 0.97 x10(3)/uL LOW Kings % 9.1 % HI Kings # 0.67 K/uL Eos % 1.1 % Eos # 0.08 x10(3)/uL Baso % 0.7 % Baso # 0.05 x10(3)/uL RBC Morphology Abnormal Anisocytosis 2+ Target Cells 1+ Ovalocytes 1+ Platelet Ct Estimate Adequate Slide Review Technologist IG# 0.04 x10(3)/uL IG% 0.50 % Urine Type. U CleanCatch Urine Color [place] Urine Appearance Turbid Urine Specific [place] 1.016 Urine pH Dipstick 6.0 Urine Leukocyte Esterase Small Urine Nitrite Negative Urine Protein Dipstick Negative Urine Glucose Dipstick Negative Urine Ketones Dipstick Trace Urine Urobilinogen Dipstick 1.0 EU/dL Urine Bilirubin Dipstick Large Urine Blood Dipstick Negative Ur RBC 0-2 /HPF Ur WBC 5-10 /HPF Ur Bacteria 2+ Ur Mucous 3+ Ur Squamous Epithelial Cells 2-5 /HPF Urine Culture if Indicated Not Indicated . Reexamination/ Reevaluation Time: 02/03/2021 20:37:00 . Vital signs per nurse's notes Course: improving. Pain status: decreased. Assessment: exam improved. Impression and Plan Diagnosis Hepatitis - Discharge, Emergency medicine, Medical Nausea - Discharge, Emergency medicine, Medical Vomiting - Discharge, Emergency medicine, Medical Encounter for medical screening examination - Discharge, Emergency medicine, Medical Calls-Consults - 02/03/2021 19:00:00 , MEMO MONSIVAIS MD-GAE, Okay for patient to go home and follow-up with her GI. Patient is stable at this time. Patient is not dehydrated or tachycardic. Patient can tolerate p.o. fluids. Plan Condition: Stable. Disposition: Discharged Admit/Transfer/Discharge: Discharge (Order): Start: 02/03/2021 20:38 EST, Discharge to: Home. Patient was given the following educational materials: Hepatitis B, Nausea and Vomiting, Adult. Follow up with: DAKOTA MCCARTHY Within 2 to 3 days; Follow up with primary care provider Within 2 to 3 days; Follow up with specialist Within 2 to 3 days; Return to Emergency Department Within As needed. Counseled: Patient, Regarding diagnosis, Regarding diagnostic results, Regarding treatment plan, Regarding prescription, Patient indicated understanding of instructions. documented in this encounter Plan of Treatment Not on file documented as of this encounter Visit Diagnoses Not on filedocumented in this encounter
--- OUTSIDE RECORDS SUMMARY | 2025-02-05 16:48 | XMS_ITS | Encounter Summary ---
Author Organization [employer] ([place], [place], [place], [place], [place]) Address [address] [place] [address] Care Team Providers Care Divorce Lawyer Name Role Phone Unavailable Primary Care Provider Unavailabl e Encounter Details Date Type Department Care Team (Late st Contact Info) Description 02/03/2021 Transcribed Document [facility] [place] [facility] [place] [address] ProviderDane MD [address] [place] [address] Social History Tobacco Use Types [...] - Historical ProviderMD - 02/03/2021 4:02 PM HEEL VARNISHER ED Assessment Entered On: 02/03/2021 17:30 EST Performed On: 02/03/2021 17:29 EST by SUNNY PRICE RN ED Quick Look Assessment Level of Consciousness : Alert, Awake Affect/Behavior : Appropriate, Calm, Cooperative Orientation : Oriented x 4 Skin Color : Jaundice Skin Temperature : Warm Skin Description : Dry SUNNY PRICE RN - 02/03/2021 17:29 EST ED General-Functional Assess Information Obtained From : Patient Communication Barrier : None Primary Language : Mohawk Any Spiritual/Cultural Needs or Requests : No Currently in Unsafe Situation : No SUNNY PRICE RN - 02/03/2021 17:29 EST Social Habits Smoking Status : Former smoker, quit more than 30 days ago Smokeless Tobacco Status : Never Desires Tobacco Cessation Calc : 0 SUNNY PRICE RN - 02/03/2021 17:29 EST Social History (As Of: 02/03/2021 17:30:51 EST) Tobacco: Use in Last 12 Months: No. Smoking Status Former smoker. Years of Use: 25. Packs/Tins Daily: 1. Used Tobacco, but Quit Yes. Last Used: quit in 2011. (Last Updated: 02/08/2013 07:58:54 EST by TALA AMANDA, RN) Cardiovascular ASMT, ED Cardiovascular Assessment WDL : WDL SUNNY PRICE RN - 02/03/2021 17:29 EST Respiratory Respiratory Assessment WDL : [facility] SUNNY PRICE RN 02/03/2021 17:29 EST Oxygen Therapy Oxygen Therapy Mode : Room air SUNNY PRICE RN - 02/03/2021 17:29 EST Gastrointestinal ED Gastrointestinal Assessment WDL : WD with exceptions (Comment: pt states her bilirubin is high per her PCP, pts skin is slightly jaundice, pt also states she has been feeling weak, pt has hep B [SUNNY PRICE RN - 02/03/2021 17:29 EST] ) SUNNY PRICE RN 02/03/2021 17:29 EST Neurologic ASMT, ED Neurologic Assessment WDL : [facility] SUNNY PRICE RN - 02/03/2021 17:29 EST Pain Assessment Pain Assessment : Initial assessment Pain Scale Used : 0-10 Scale SUNNY PRICE RN - 02/03/2021 17:29 EST Pain Scale Intensity : 7 SUNNY PRICE RN 02/03/2021 17:29 EST Image 4 - Images currently included in the form version of this document have not been included in the text rendition version of the form. documented in this encounter Plan of Treatment Not on file documented as of this encounter Visit Diagnoses Not on filedocumented in this encounter
--- OUTSIDE RECORDS SUMMARY | 2025-02-05 16:48 | XMS_ITS | Encounter Summary ---
Author Organization [employer] ([place], [place], [place], [place], [place]) Address [address] [place] [address] Care Team Providers Care Workers Compensation Coordinator Name Role Phone Unavailable Primary Care Provider Unavailabl e Encounter Details Date Type Department Care Team (Late st Contact Info) Description 02/03/2021 Transcribed Document [facility] [place] [address] [place] [address] ProviderDane MD [address] [place] [id number] Social History Tobacco Use Types Packs/Day Years [...] - Historical ProviderMD - 02/03/2021 4:02 PM ASSET PROTECTION REPRESENTATIVE Broset Violence Assessment Entered On: 02/03/2021 17:30 EST Performed On: 02/03/2021 17:29 EST by SUNNY PRICE RN Broset Violence Assessment Broset Violence Checklist of Symptoms : None Broset Violence Symptoms Subtotal : 0 Broset Violence Symptoms Indicator : Low risk (0) Broset Interventions : [place] precautions for safety used SUNNY PRICE RN - 02/03/2021 17:29 EST Electronically signed by Tin Gomez Conversion Certified Performance Technologist Marsha at 07/07/2022 11:11 AM CDT documented in this encounter Plan of Treatment Not on file documented as of this encounter Visit Diagnoses Not on filedocumented in this encounter
--- OUTSIDE RECORDS SUMMARY | 2025-02-05 16:48 | XMS_ITS | Encounter Summary ---
Author Organization [employer] ([place], [place], [place], [place], [place]) Address [address] [address] Care Team Providers Care News Reporter Name Role Phone Unavailable Primary Care Provider Unavailabl e Encounter Details Date Type Department Care Team (Late st Contact Info) Description 02/03/2021 Transcribed Document [facility] [place] [facility] [place] [address] ProviderDane MD [address] [place] [address] Social History Tobacco Use Types [...] - Historical ProviderMD - 02/03/2021 4:02 PM PROJECT COACH ED Triage Entered On: 02/03/2021 16:27 EST Performed On: 02/03/2021 16:24 EST by Pilar Saravia RN ED Triage Across the Room Chief Complaint : Pt states sent by Dr. Bautista for admission r/t bilirubin 16. Hx hepatitis B. c/o RUQ abdominal pain 09/28. Discharged from [facility] 1 week ago for same. Triage Date/Time : 02/03/2021 16:24 EST Pilar Saravia RN - 02/03/2021 16:24 EST DCP GENERIC CODE Tracking Acuity : 3 - Urgent Tracking Group : [facility] ED Pilar Saravia RN - 02/03/2021 16:24 EST Mode of Arrival : Ambulatory Transported to ED by : Private vehicle To Room Via : Ambulate Accompanied By : Significant other ED Vital Signs : Document Height & Weight : Document ED Allergies : Document ED Reason for Visit : Document Pilar Saravia RN - 02/03/2021 16:24 EST Infectious Disease History Does patient have symptoms of COVID-19? : No Has the Patient Been Tested for COVID-19 in the last 14 days? : Yes, Patient stated results Negative Does the Patient state known exposure to a COVID-19 positive case in the last 14 days? : No Patient Vaccinated for COVID-19 : Not vaccinated Does Patient want a COVID-19 Vaccine? : No Pilar Saravia RN - 02/03/2021 16:24 EST Infectious Disease Risk Screening Grid Cough < 2 wks of unknown origin : NO Cough > 2 weeks : NO Blood in Sputum : NO Fever or self-reported Fever : NO Rash of unknown origin : NO Headache : NO Stiff neck : NO Night Sweats : NO Unexplained Weight Loss : NO Diarrhea (3 episode per day) : NO Pilar Saravia RN - 02/03/2021 16:24 EST Physical contact outside [place] in the last 30 days : No Hospitalized in [place] : No Infectious Disease History : Measles, Mumps INF Disease TB Screening Calc : 0 INF Disease Recent Travel Calc : 0 Pilar Saravia RN - 02/03/2021 16:24 EST Vital Signs ED Temperature Source : Oral Temperature Mode : Fahrenheit Temperature, Fahrenheit : 97.9 Deg F ED Pain : Yes Clinical Temperature, C : 36.6 Deg C Oxygen Therapy Mode : Room air Peripheral Pulse Rate : 66 bpm Respiratory Rate : 16 Breaths/Min Systolic Blood Pressure : 139 mmHg Diastolic Blood Pressure : 68 mmHg Oxygen Saturation : 99 % Pilar Saravia RN - 02/03/2021 16:24 EST Allergy (As Of: 02/03/2021 16:27:33 EST) Allergies (Active) No Known Allergies Estimated Onset Date: Unspecified ; Created By: TALA AMANDA RN; Reaction Status: Active ; Substance: No Known Allergies ; Type: Allergy Diagnosis Control ED (As Of: 02/03/2021 16:27:33 EST) Problems(Active) Arthritis (SNOMED CT :3239960 ) Name of Problem: Arthritis ; Recorder: TALA AMANDA, RN; Confirmation: Confirmed ; Classification: Patient Stated ; Code: [id number] ; Contributor System: PowerChart ; Last Updated: 08/31/2013 19:26 EDT ; Life Cycle Date: 02/08/2013 ; Life Cycle Status: Active ; Vocabulary: SNOMED CT Back pain (PNED :[id number] ) Name of Problem: Back pain ; Recorder: TALA AMANDA RN; Confirmation: Confirmed ; Classification: Patient Stated ; Code: [id number] ; Contributor System: PowerChart ; Last Updated: 09/05/2013 10:52 EDT ; Life Cycle Date: 02/08/2013 ; Life Cycle Status: Active ; Vocabulary: PNED CA - Cancer of ovary (SNOMED CT :2541178461 ) Name of Problem: CA - Cancer of ovary ; Recorder: TALA AMANDA RN; Confirmation: Confirmed ; Classification: Patient Stated ; Code: [id number] ; Contributor System: PowerChart ; Last Updated: 02/08/2013 7:54 EST ; Life Cycle Date: 02/08/2013 ; Life Cycle Status: Active ; Vocabulary: SNOMED CT Deep vein thrombosis (SNOMED CT :6915382715 ) Name of Problem: Deep vein thrombosis ; Recorder: TALA AMANDA RN; Confirmation: Confirmed ; Classification: Patient Stated ; Code: [id number] ; Contributor System: [employer] Data TechnologiesChart ; Last Updated: 08/31/2013 19:26 EDT ; Life Cycle Date: 02/08/2013 ; Life Cycle Status: Active ; Vocabulary: SNOMED CT GERD - Gastro-esophageal reflux disease (SNOMED CT :6332472144 ) Name of Problem: GERD - Gastro-esophageal reflux disease ; Recorder: TALA AMANDA RN; Confirmation: Confirmed ; Classification: Patient Stated ; Code: [id number] ; Contributor System: PowerChart ; Last Updated: 09/05/2013 10:51 EDT ; Life Cycle Date: 02/08/2013 ; Life Cycle Status: Active ; Vocabulary: SNOMED CT H/O: gallbladder disease (SNOMED CT :610805907 ) Name of Problem: H/O: gallbladder disease ; Recorder: TALA AMANDA RN; Confirmation: Confirmed ; Classification: Patient Stated ; Code: [id number] ; Contributor System: [employer] Data [employer]Chart ; Last Updated: 02/08/2013 7:48 EST ; Life Cycle Date: 02/08/2013 ; Life Cycle Status: Active ; Vocabulary: SNOMED CT H/O: hysterectomy (SNOMED CT :147357625 ) Name of Problem: H/O: hysterectomy ; Recorder: TALA AMANDA RN; Confirmation: Confirmed ; Classification: Patient Stated ; Code: [id number] ; Contributor System: [employer] Data [employer]Chart ; Last Updated: 08/31/2013 19:26 EDT ; Life Cycle Date: 02/08/2013 ; Life Cycle Status: Active ; Vocabulary: SNOMED CT Impaired vision (SNOMED CT :25288750 ) Name of Problem: Impaired vision ; Recorder: TALA AMANDA RN; Confirmation: Confirmed ; Classification: Patient Stated ; Code: 81003167 ; Contributor System: [employer] ; Last Updated: 08/31/2013 19:26 EDT ; Life Cycle Date: 02/08/2013 ; Life Cycle Status: Active ; Vocabulary: SNOMED CT Sinusitis (SNOMED CT :54293033 ) Name of Problem: Sinusitis ; Recorder: TALA AMANDA RN; Confirmation: Confirmed ; Classification: Patient Stated ; Code: 48352494 ; Contributor System: [employer] Data [employer]Chart ; Last Updated: 08/31/2013 19:26 EDT ; Life Cycle Date: 02/08/2013 ; Life Cycle Status: Active ; Vocabulary: SNOMED CT Syncope (SNOMED CT :601296719 ) Name of Problem: Syncope ; Recorder: TALA AMANDA RN; Confirmation: Confirmed ; Classification: Patient Stated ; Code: 794254460 ; Contributor System: [employer] Data [employer]Chart ; Last Updated: 08/31/2013 19:26 EDT ; Life Cycle Date: 02/08/2013 ; Life Cycle Status: Active ; Vocabulary: SNOMED CT Diagnoses(Active) Abdominal pain Date: 02/03/2021 ; Diagnosis Type: Reason For Visit ; Confirmation: Complaint of ; Clinical Dx: Abdominal pain ; Classification: Medical ; Clinical Service: Non-Specified ; Code: PNED ; Probability: 0 ; Diagnosis Code: [id number] Abnormal laboratory findings Date: 02/03/2021 ; Diagnosis Type: Reason For Visit ; Confirmation: Complaint of ; Clinical Dx: Abnormal laboratory findings ; Classification: Medical ; Clinical Service: Non-Specified ; Code: PNED ; Probability: 0 ; Diagnosis Code: [id number] ED Height and Weight Height Source : Stated Height Entry Format : [place] Height, Feet : 5 ft(Converted to: 152 cm, 60 Inch) Height, Inches : 6 Inch(Converted to: 0 ft 6 Inch, 15.24 cm) Clinical Height : 167.64 cm Weight Source, ED : Critical estimated dosing weight Weight Entry Format : [place] Weight, Pounds : 200 lb Clinical Dosing Weight : 90.91 kg Body Surface Area (BSA) : 2 m2 Body Mass Index : 32.3 kg/m2 (HI) [place] Body Weight (IBW) : 58.88 kg Pilar Saravia RN - 02/03/2021 16:24 EST Pain Assessment Pain Assessment : Initial assessment Pain Scale Used : 0-10 Scale Pilar Saravia RN - 02/03/2021 16:24 EST Pain Scale Intensity : 7 Pilar Saravia RN - 02/03/2021 16:24 EST Image 4 - Images currently included in the form version of this document have not been included in the text rendition version of the form. documented in this encounter Plan of Treatment Not on file documented as of this encounter Visit Diagnoses Not on filedocumented in this encounter
--- OUTSIDE RECORDS SUMMARY | 2025-02-05 16:49 | XMS_ITS | Encounter Summary ---
Author Organization [employer] ([place], [place], [place], [place], [place]) Address [address] [place] [address] Care Team Providers Care Banking Services Advisor Name Role Phone Unavailable Primary Care Provider Unavailabl e Encounter Details Date Type Department Care Team (Late st Contact Info) Description 02/03/2021 Transcribed Document [facility] Family Medicine [facility] [place] [address] ProviderDane MD [address] [place] [address] Social History Tobacco Use Types [...] Conversion Note - Historical ProviderMD - 02/03/2021 9:34 PM [facility]ER ED Discharge Entered On: 02/03/2021 21:34 EST Performed On: 02/03/2021 21:34 EST by Michelle Singh NON EMP manager process Process Patient Disposition : Discharge Personal Belongings With Patient : Yes Patient Education Completed : Yes Teaching Evaluation : Verbalizes understanding IV Discontinued : Yes Mcihelle Singh NON EMP RN - 02/03/2021 21:34 EST ED Discharge Discharge To : Home with ambulatory/outpatient follow-up Mode Of Departure : Private vehicle Discharge Instructions Reviewed With, Opportunity For Questions Given : Patient Michelle Singh NON EMP RN - 02/03/2021 21:34 EST Electronically signed by Jason [facility] Conversion Inspector [employer] at 07/07/2022 10:59 AM CDT documented in this encounter Plan of Treatment Not on file documented as of this encounter Visit Diagnoses Not on filedocumented in this encounter
--- OUTSIDE RECORDS SUMMARY | 2025-02-05 16:50 | XMS_ITS | Clinical Summary ---
Author Organization [facility] Address [address] [place] [address] Care Team Providers Care Merchandising Team Lead Name Role Phone Sebas Campbell MD Primary Care Provider [phone] Allergies No known active allergies Medications HYDROcodone-rea [...] Results * Lipid Panel (11/20/2019) Blood us Kayleen Holden PA-C LAB BLOOD ORDERABLES Final Result [facility] [id number] [place] [id number], from Last 3 Months or Most Recently Relevant to Health Maintenance Insurance [facility] MEDICARE ADVANTAGE Care Teams Merchandising Team Lead Relationship Specialty Start Date End Date Sebas Campbell MD [address] [facility] [address] [place] [address] PCP - General Adolescent Medicine 09/19/19
== END 2025-02-05 23:59 | disposition home or self-care (01) ==
LOC: RAD 11:14
PROVIDERS: PCP Nurse Practitioner Family; Visit Provider Nurse Practitioner Family
DX: Z12.31 Encounter for screening mammogram for malignant neoplasm of breast (principal); N63.20 Unspecified lump in the left breast, unspecified quadrant; Q75.8 Other specified congenital malformations of skull and face bones; J32.9 Chronic sinusitis, unspecified; R92.323 Mammographic fibroglandular density, bilateral breasts; Z80.3 Family history of malignant neoplasm of breast
CPT/HCPCS: 70486; 77063; 77067; 77080

== ENCOUNTER 2025-03-02 15:01 | Outpatient (CLI) | payer MEDICARE, SELFPAY ==
--- NOTE | 2025-03-02 15:03 | US_ITS ---
PROCEDURE INFORMATION: Exam: US Left Breast, Complete Exam date and time: 03/02/2025 3:16 PM Age: 64 years old Clinical indication: Patient recalled for further evaluation of left breast nodularity TECHNIQUE: Imaging protocol: Complete ultrasound of all four quadrants of the left breast and the retroareolar regions, including ultrasound of the axilla when performed. COMPARISON: MG MM DIG SCREENING MAMM BI W/CAD 02/05/2025 11:19 AM FINDINGS: ULTRASOUND: Breast ultrasound findings: Sonographic images of the left breast including the retroareolar region, all 4 quadrants and the axilla do not demonstrate any solid or cystic masses. Cursors were placed over normal fibroglandular structures in the left 5 o'clock axis 3 cm from the nipple. No architectural distortion or acoustical shadowing. No skin thickening or axillary adenopathy. IMPRESSION: Subcentimeter nodular tissue in the central left breast only well seen in the craniocaudal projection is probably benign in etiology. A six-month follow-up diagnostic left mammogram is recommended to ensure stability of the pattern identified ASSESSMENT: BI-RADS Category 3: Probably benign.
--- NOTE | 2025-03-02 15:04 | MM_ITS ---
PROCEDURE INFORMATION: Exam: MG Left Diagnostic Breast Tomosynthesis Exam date and time: 03/02/2025 3:37 PM Age: 64 years old Clinical indication: Recall on the basis of screening mammogram 02/05/2025 for further evaluation of questionable two masses/circumscribed asymmetries in the left central breast posteriorly measuring up to 0.5 cm, 9-10 cm from the nipple, and in the left breast medially measuring up to 0.3 cm, that is 7 cm from the nipple, CC view only. TECHNIQUE: Imaging protocol: Left Diagnostic tomosynthesis and 2D mammography including computer-aided detection (CAD) when performed. Unilateral or bilateral exam. COMPARISON: 1. MG MM DIG SCREENING MAMM BI W/CAD 02/05/2025 11:19 AM 2. MG MM DIG SCREENING MAMM BI W/CAD 01/17/2020 8:40 AM 3. US BREAST LT COMPLETE 03/02/2025 3:16 PM FINDINGS: MAMMOGRAPHY: Breast composition: There are scattered areas of fibroglandular density. Density based on the most recent screening mammogram report. Breast mammogram findings: Spot compression shows persistent scattered subcentimeter masses in the central breast, superiorly and inferiorly, best seen on the MLO projection, 4-11 cm from the nipple, over about a 7 cm area. IMPRESSION: Patient will be recalled for left sonography for further evaluation of masses. ASSESSMENT: BI-RADS Category 0: Incomplete: Need Additional Imaging Evaluation.
== END 2025-03-02 23:59 | disposition home or self-care (01) ==
LOC: RAD 15:02
PROVIDERS: PCP Nurse Practitioner Family; Visit Provider Nurse Practitioner Family
DX: R92.322 Mammographic fibroglandular density, left breast (principal); N63.20 Unspecified lump in the left breast, unspecified quadrant
CPT/HCPCS: 76641; 77061; 77065; G0279